=== PATIENT | male | born 1950 | race Caucasian/White ===

== ENCOUNTER 2016-03-24 13:05 | Inpatient (IN) | payer OTHER ==
[2016-03-24] MEDS ORDERED: cefTRIAXone(*) 2 GM in NS 0.9% 100 ML* 100 ML IVPB ONE (13:40)
[2016-03-24] MEDS ORDERED: NS 0.9% 1000 ML* 2,000 ML IV ONE (13:40)
--- NOTE | 2016-03-24 13:46 | ED ---
HPI Febrile Illness - HPI Summary HPI Summary: Patient presents for delayed evaluation of neck swelling and chills. Progressively worse over the last week and now so painful making it difficult to turn his neck. Denies headache, diplopia, recent antibiotics or antipyretics. No allev factors, recent hospitalisation. Came for evaluation. - History of Current Complaint Chief Complaint: EDGeneral Time Seen by Provider: 03/24/16 13:06 Hx Obtained From: Patient Onset/Duration: Started Days Ago Timing: Constant Pain Intensity: 0 - Allergy/Home Medications Allergies/Adverse Reactions: Allergies Allergy/AdvReac Type Severity Reaction Status Date / Time Carbamazepine Allergy Unknown Unknown Verified 01/21/16 15:14 Reaction Details Phenytoin [From Dilantin] Allergy Unknown Unknown Verified 01/21/16 15:14 Reaction Details Home Medications: Home Medications Acetaminophen TAB* [Tylenol TAB*] 650 mg PO Q4H PRN 03/24/16 [History Confirmed 03/24/16] Alendronate (NF) [Fosamax (NF)] 70 mg PO SA 03/24/16 [History Confirmed 03/24/16 ] Bisacodyl EC TAB* [Dulcolax EC TAB*] 5 mg PO DAILY PRN 03/24/16 [History Confirmed 03/24/16] Budesonide/Formote 160/4.5(NF) [Symbicort 160/4.5 (NF)] 2 puff INH BID PRN 03/24 [History Confirmed 03/24/16] Bupropion XL* [Wellbutrin XL *] 150 mg PO BID 03/24/16 [History Confirmed ] Cholecalciferol TAB* [Vitamin D TAB*] 3,000 units PO DAILY 03/24/16 [History Confirmed 03/24/16] CloZAPine TAB* 200 mg PO BEDTIME 03/24/16 [History Confirmed 03/24/16] ClomiPRAMINE (NF) [Clomipramine (NF)] 25 mg PO BEDTIME 03/24/16 [History Confirmed 03/24/16] Finasteride TAB* [Proscar TAB*] 5 mg PO DAILY 03/24/16 [History Confirmed ] Guaifenesin 400 mg PO Q6HR PRN 03/24/16 [History Confirmed 03/24/16] Haloperidol TAB* [Haldol TAB*] 5 mg PO BID PRN 03/24/16 [History Confirmed 03/24] Ipratropium [place] (Nasal) [Ipratropium [place]] 0.06 % SWISH SPIT TID PRN [History Confirmed 03/24/16] Meloxicam(NF) [Mobic(NF)] 7.5 mg PO DAILY 03/24/16 [History Confirmed 03/24/16] Nicotine GUM* 4 mg PO Q1HR PRN 03/24/16 [History Confirmed 03/24/16] Polyethylene Glycol 3350* [Miralax*] 17 gm PO DAILY PRN 03/24/16 [History Confirmed 03/24/16] Ranitidine TAB (NF) [Zantac TAB (NF)] 150 mg PO BID 03/24/16 [History Confirmed 03/24/16] Saline NASAL SPRAY 0.65%* [Sodium Chloride 0.65% Nasal [place]*] 2 spray BOTH NARES Q2HR PRN 03/24/16 [History Confirmed 03/24/16] Sennosides-Docusate Sodium [Senna-S 8.6-50 mg] 2 tab PO BID PRN 03/24/16 [ History Confirmed 03/24/16] Urea 20 % TOPICAL DAILY PRN 03/24/16 [History Confirmed 03/24/16] PMH/Surg Hx/FS Hx/Imm Hx Endocrine/Hematology History: Denies: Hx Diabetes Cardiovascular History: Reports: Hx Hypertension Denies: Hx Congestive Heart Failure Respiratory History: Denies: Other Respiratory Problems/Disorders GI History: Reports: Other GI Disorders - gastritis and hernia History: Denies: Hx Renal Disease Musculoskeletal History: Denies: Hx Back Problems - d/t fall on ice 2008 Neurological History: Reports: Hx Migraine, Hx Seizures, Other Neuro Impairments /Disorders - pt reports occasional blackout once/twice year Denies: Hx Transient Ischemic Attacks (TIA) Psychiatric History: Reports: Hx Anxiety, Hx Depression, Hx Post Traumatic Stress Disorder, Hx Schizophrenia, Hx Bipolar Disorder, Hx Suicide Attempt, Hx of Violent Episodes Against Others Denies: Hx Eating Disorder - Immunization History Date of Influenza Vaccine: 01/08/16 Infectious Disease History: Yes Infectious Disease History: Reports: Hx Hepatitis Denies: Hx Clostridium Difficile, Hx Human Immunodeficiency Virus (HIV), Hx of Known/Suspected MRSA, Hx Shingles, Hx Tuberculosis, Hx Known/Suspected VRE, Hx Known/Suspected VRSA, History Other Infectious Disease, Traveled Outside the [place] in Last 30 Days - Family History Known Family History: Negative: Cardiac Disease, Diabetes - Social History Alcohol Use: None Alcohol Amount: None now - Hx ETOH Abuse Substance Use Type: Reports: None Substance Use Comment - Amount & Last Used: Thorazine prescribed Hx Tobacco Use: Yes Smoking Status (MU): Heavy Every Day Tobacco Smoker Type: Cigarettes Length of Time of Smoking/Using Tobacco: 20 years Have You Smoked in the Last Year: Yes Review of Systems Positive: Fever, Chills Negative: Photophobia, Blurred Vision, Diplopia Cardiovascular: Negative Respiratory: Negative Positive: Nausea Genitourinary: Negative Negative: Arthralgia, Myalgia Positive: Rash Negative: Headache, Weakness, Paresthesia, Numbness, Syncope, Slurred Speech All Other Systems Reviewed And Are Negative: Yes Physical Exam Triage Information Reviewed: Yes Vital Signs On Initial Exam: Initial Vitals BP 159/79 03/24/16 13:12 Vital Signs Reviewed: Yes Appearance: Positive: Well-Nourished, Ill-Appearing, Pain Distress Skin: Positive: Warm, Skin Color Reflects Adequate Perfusion, Other - Entire dorsum of neck with eyrthema and induration, R sided ulceration, but no fluctuance. Head/Face: Positive: Normal Head/Face Inspection. Negative: TMJ Tenderness, Cephalohematoma Eyes: Positive: Normal, EOMI, SUYAPA ENT: Positive: Normal ENT inspection, Hearing grossly normal, Pharynx normal Neck: Positive: Supple, Enlarged Nodes @, Other: - Is able to passively and active ROM of neck. Respiratory/Lung Sounds: Positive: Clear to Auscultation, Breath Sounds Present Cardiovascular: Positive: Normal, RRR, Pulses are Symmetrical in both Upper and Lower Extremities Abdomen Description: Positive: Nontender, No Organomegaly, Soft Musculoskeletal: Positive: Normal, Strength/ROM Intact Neurological: Positive: Normal, Sensory/Motor Intact, Alert, Oriented to Person Place, Time, CN Intact II-III, Reflexes Intact, NV Bundle Intact Distally, Normal Gait - Recluse Coma Scale Coma Scale Total: 15 Diagnostics - Vital Signs Vital Signs Temp Pulse Resp BP Pulse Ox 03/24/16 13:14 99.2 F 99 20 159/79 93 03/24/16 13:12 159/79 - Laboratory Result Diagrams: 03/24/16 13:50 03/24/16 13:50 Lab Statement: Any lab studies that have been ordered have been reviewed, and results considered in the medical decision making process. Course/Dx - Febrile Illness Differential Diagnoses: Bacteremia, Cellulitis, Meningitis, Sepsis, Other: - Primary concern for severe sepsis with cellulitis. IVF and antibiotics. Low concern for meningoencephalitis, but ill apperaing. Probable admission for iv antibiotics. - Diagnoses Provider Diagnoses: Cellulitis of neck Discharge - Discharge Plan Condition: Stable Disposition: ADMITTED TO [facility]
[2016-03-24] MEDS ORDERED: Vancomycin(*) 1,500 MG in NS 0.9% 250 ML* 250 ML IVPB ONE ×2 (14:05→16:30)
[2016-03-24 14:15] LABS: Hematocrit 51 % (42-52); Hemoglobin 16.6 g/dl (14.0-18.0); Mean Corpuscular HGB Conc 33 g/dl (31-36); Mean Corpuscular Hemoglobin 29 pg (27-31); Mean Corpuscular Volume 89 fL (80-94); Mean Platelet Volume 9 um3 (7.4-10.4); Red Blood Count 5.66 10^6/ul (4.0-5.4); Red Cell Distribution Width 14 % (10.5-15); White Blood Count 14.8 10^3/ul (3.5-10.8)
[2016-03-24] MEDS ORDERED: NS 0.9% 250 ML* 250 ML ONE (14:18)
[2016-03-24 14:26] LABS: BUN/Creatinine Ratio 23.5 (8-20); Calcium 9.2 mg/dL (8.6-10.3); EGFR African American 94.3 (>60); EGFR Non-African American 73.3 (>60)
[2016-03-24 14:30] LABS: Potassium 4.3 mmol/L (3.5-5.0)
[2016-03-24] MEDS ORDERED: Iohexol 300* (CONTRAST) 10 ML SDV IV ONE (14:36)
--- NOTE | 2016-03-24 15:23 | RAD ---
HISTORY: Altered. No other history is provided COMPARISONS: None TECHNIQUE: Multiple contiguous axial CT scans were obtained of the head without intravenous contrast. FINDINGS: HEMORRHAGE/INFARCT: There is no hemorrhage or acute infarct. MASSES/SHIFT: There is no mass or shift. EXTRA-AXIAL SPACES: There are no extra-axial fluid collections. SULCI AND VENTRICLES: The sulci and ventricles are normal in size and position for the patient's stated age. CEREBRUM: There are no focal parenchymal abnormalities. BRAINSTEM: There are no focal parenchymal abnormalities. CEREBELLUM: There are no focal parenchymal abnormalities. VESSELS: The vessels are grossly normal. PARANASAL SINUSES: The paranasal sinuses are clear. ORBITS: The orbits are unremarkable. BONES AND SOFT TISSUE: No bone or soft tissue abnormalities are noted. OTHER: None IMPRESSION: NO ACUTE INTRACRANIAL PATHOLOGY.
[2016-03-24] MEDS ORDERED: NS 0.9% 1000 ML* 1,000 ML IV ONE (15:35)
[2016-03-24] MEDS ORDERED: Ondansetron INJ* 2 MG/ML VIAL IV PRN (15:35)
[2016-03-24] MEDS ORDERED: Haloperidol TAB* 5 MG PO PRN (15:39)
[2016-03-24] MEDS ORDERED: Albuterol HFA INHALER* 8 gm MDI INH PRN (15:39)
[2016-03-24] MEDS ORDERED: Nicotine GUM* 2 MG PO PRN (15:39)
[2016-03-24] MEDS ORDERED: clonazePAM TAB(*) 0.5 MG PO PRN (15:39)
[2016-03-24] MEDS ORDERED: NS 0.9% 1000 ML* 1,000 ML IV SCH (15:45)
[2016-03-24] MEDS ORDERED: LORazepam TAB(*) 1 MG PO SCH (16:00)
--- NOTE | 2016-03-24 16:23 | RAD ---
INDICATION: Fever. Sore throat. COMPARISON: None TECHNIQUE: Axial source images were acquired following the intravenous administration of 50 mL Omnipaque 300 Coronal and sagittal reconstructed images were acquired. FINDINGS: Brain and skull base: There are no CT abnormalities of the visualized brain or skull base. The mastoid air cells are well aerated. Salivary glands: No major salivary gland abnormality. Limited evaluation due to motion artifact, however.. Paranasal sinuses: The paranasal sinuses are clear. Nasopharynx: The nasopharynx and nasal cavity appear normal. Oropharynx: Very Limited examination due to motion artifact. Larynx: There are no laryngeal abnormalities. Thyroid: The thyroid appears normal. Lymph nodes: There is no lymphadenopathy by size criteria. Trachea/esophagus: There are no abnormalities of the trachea or visualized esophagus. The visualized lung apices are clear.. Vessels:The vessels appear normal. Bones and soft tissues:The remaining soft tissue elements of the neck are normal. There are no acute bony findings. There is mild spondylitic change of the cervical spine. Other: There is subcutaneous edema in the posterior soft tissues of the neck with mild skin induration. IMPRESSION: MILDLY LIMITED EXAMINATION DUE TO MOTION ARTIFACT AT THE LEVEL OF THE OROPHARYNX. MILD SUBCUTANEOUS EDEMA POSTERIOR SOFT TISSUES OF THE NECK. NO ADDITIONAL SIGNIFICANT CT FINDINGS.
[2016-03-24] MEDS ORDERED: Acetaminophen SUPP* 650 MG SUPP ONE (16:43)
[2016-03-24] MEDS: Acetaminophen TAB* 325 MG PO PRN ×2 (16:50→23:42)
--- NOTE | 2016-03-24 17:23 | RAD ---
INDICATION: Palpable lump posterior neck COMPARISON: CT neck to 2016 TECHNIQUE: Linear array scans of the posterior neck at the palpable area of concern performed. FINDINGS: There is no evidence of a mass. The CT likewise showed no evidence of a mass. There is mild skin induration IMPRESSION:NO EVIDENCE OF DISCRETE MASS/ABSCESS. EDEMATOUS CHANGE POSTERIOR NECK.
[2016-03-24] MEDS: oxyCODONE/Acetamin 5/325 MG* TAB PO PRN (19:30)
[2016-03-24] MEDS ORDERED: Calcium Carbonate CHEW TAB* 500 MG (TUMS) PO PRN (19:36)
[2016-03-24] MEDS: CloZAPine TAB* 100 MG TAB PO SCH (20:35)
[2016-03-24] MEDS: BuPROPion XL* 150 MG TAB.XL PO SCH (20:35)
[2016-03-24] MEDS: Famotidine TAB* 20 MG PO SCH (20:36)
[2016-03-24] MEDS: levETIRAcetam TAB* 500 MG PO SCH (20:37)
[2016-03-24] MEDS: CMC:ClomiPRAMINE (NF) 25 MG CAP PO SCH (20:40)
[2016-03-24] MEDS: Heparin VIAL(*) 5000 UNITS/ML VIAL (FIVE THOUSAND) SUBCUT SCH (21:32)
[2016-03-24] MEDS ORDERED: Polyethylene Glycol 3350* 17 GM PACKET PO ONE (23:00)
[2016-03-25] MEDS: Vancomycin(*) 1,000 MG in NS 0.9% 250 ML* 250 ML IVPB SCH ×3 (00:30→17:30)
--- NOTE | 2016-03-25 03:26 | HP ---
HISTORY AND PHYSICAL: DATE OF ADMISSION: 03/24/16 PRIMARY CARE PROVIDER: DANAE Epstein ATTENDING PHYSICIAN WHILE IN THE HOSPITAL: Dr. Tobi Scherer *(report dictated by Yovani Vela NP). CHIEF COMPLAINT: 1. Neck pain. 2. Neck redness and swelling. HISTORY OF PRESENT ILLNESS: Mr. Coombs is a 65-year-old male patient. He is a poor historian. He has a history of bipolar disorder, schizophrenia. His history again is poor, but he essentially comes in today because of neck pain. When initially asking the patient when this neck pain started, he said 4 years ago when he fell and slipped on some ice. However, on further discussing with him, it was revealed that about 3 or 4 days ago, he was getting his haircut by his traylor. He was using the clippers on the back side of his neck and he felt a sharp, stabbing pinch. He jumped up off the chair and he states that he thinks he may have become nicked. The patient says that to his knowledge he did not notice any redness over the last few days, but he noticed today that when he woke up that he had significant amount of pain and swelling. It hurts to move his neck, hurts to extend or flex the neck. So, he decided to come in to the ER. There have been no fevers or chills. He says that one of the workers where he lives at the [facility] noted his neck and felt that it should be evaluated at the hospital because it looked like he may have had an abscess. He was sent to the hospital. He denied having any other symptoms of vomiting or diarrhea. He denied having any chest pain or shortness of breath. There was concern when he came in to the hospital because it was noted that he appeared to be having rigors. He had an elevated white count and he had a significant amount of induration, erythema, pain, and swelling to his neck. So, the hospitalist service was asked to evaluate for admission. PAST MEDICAL HISTORY: Significant for: 1. Seizures. 2. BPH. 3. EtOH abuse. 4. Schizophrenia. 5. Bipolar disorder. 6. COPD. 7. Hypertension. PAST SURGICAL HISTORY: He denied any surgical history to me. MEDICATIONS: Home meds according to the [facility]'s list include: 1. Ipratropium bromide 0.6% swish, spit t.i.d. as needed. 2. Saline nasal spray, 2 sprays both nares every 2 hours as needed. 3. MiraLAX 17 g p.o. daily as needed. 4. Guaifenesin 400 mg daily p.o. every 6 hours as needed. 5. Urea 20% topically daily as needed. 6. Haldol 5 mg p.o. b.i.d. as needed. 7. Nicotine 4 mg p.o. every hour as needed for cravings. 8. Dulcolax 5 mg p.o. daily as needed. 9. ProAir 2 puffs inhaled four times a day as needed. 10. Tylenol 650 mg p.o. every 4 hours as needed. 11. Mobic 7.5 mg p.o. daily. 12. Clomipramine 25 mg p.o. bedtime. 13. Zantac 150 mg p.o. b.i.d. 14. Proscar 5 mg daily. 15. Vitamin D 3000 units daily. 16. Klonopin 0.5 mg t.i.d. as needed. 17. Senna 2 tabs p.o. b.i.d. as needed. 18. Clozapine 200 mg at bedtime. 19. Symbicort 2 puffs inhaled b.i.d. as needed. 20. Clozaril 100 mg p.o. in the morning. 21. Wellbutrin 150 mg p.o. b.i.d. 22. Keppra 750 mg p.o. b.i.d. 23. Zoloft 200 mg daily. 24. Plavix 75 mg daily. 25. Fosamax 70 mg p.o. Saturdays. 26. Sodium chloride 2 sprays both nares four times a day. ALLERGIES TO MEDICATIONS: Include TEGRETOL and DILANTIN. FAMILY HISTORY: The patient reports his mother was murdered. Otherwise, reviewed and noncontributory. SOCIAL HISTORY: The patient says he smokes about 17 cigars a day. He has been smoking for about 50 years. He says he has a distant history of alcohol abuse. He lives at [facility]. When asked if he wants a healthcare proxy appointed, he said his grandmother. Then, I asked him the grandmother most likely is not alive given his age, he said he agreed with me, saying most likely she is not and he does not want to appoint a healthcare proxy at this time. REVIEW OF SYSTEMS: There is no documented fever. He denied having any significant weight change. There was no double vision. He denies having any ear discharge. There is no rhinorrhea. No sore throat. No thyroid enlargement. Denies having any chest pain. There was no orthopnea. There was no nocturnal dyspnea. There was no abdominal pain. There was no nausea, no vomiting. There is no dysuria, no frequency. There is no loss of consciousness. No pruritus. There is skin ulceration per my HPI. Review of 14 systems completed, all others negative. PHYSICAL EXAMINATION GENERAL: At this time, Mr. Coombs is a 65-year-old male patient. He is chronically ill appearing. He is sitting in the ER stretcher. He does not appear to be in any acute distress. VITAL SIGNS: Reveal blood pressure 159/79, pulse of 98, respirations 20, O2 sat 93%, and temperature 99.2. HEENT: Head: Atraumatic and normocephalic. Eyes: EOMs intact. Sclerae are anicteric and not pale. Throat: Oral mucosa appeared to be dry. No oropharyngeal erythema. NECK: He had what appeared to be an abscess to me or a cyst like to the left side of his posterior neck that had induration wrapping around to his right ear behind the neck and over to his left ear posteriorly and there was no fluctuance when I did palpate the cyst structure at this point. He did have severe induration and erythema and pain on palpation. He had pain with flexion and extension. The neck was not stiff, but it definitely hurt to move. LUNGS: Clear to auscultation bilaterally. No wheezes, rales, or rhonchi. HEART: Sounds S1, S2. Regular rate and rhythm. No murmurs, rubs, or gallops. ABDOMEN: Soft, flat, and nontender. Bowel sounds present. EXTREMITIES: Pulses 2+ throughout. He is able to move all 4 extremities with 5 /5 strength. NEUROLOGIC: He is awake and he is alert. He knows he is at [facility] and he tells it. He knows the month. He knows his name. 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 Tongue is midline. He had no gross focal deficits. SKIN: Intact. DIAGNOSTIC STUDIES/LAB DATA: Today revealed a WBC of 14.8, RBC of 5.66, hemoglobin 16.6, hematocrit 51, platelet count of 152. Sodium 136, potassium 4.3, chloride of 101, bicarb 30, BUN 24, creatinine of 1.02, glucose 133, lactate 1.5, calcium 9.2. He had a brain CT obtained today which showed no acute intracranial pathology. Neck CT is pending, both structure and soft tissue. Old medical records were reviewed. ASSESSMENT AND PLAN: Mr. Coombs is a 65-year-old male patient coming in to the ER today with complaints of 3- to 4-day history of worsening neck pain and also having what appeared to be now a new possible abscess formation to his posterior neck. He will be admitted under inpatient status for: 1. Abscess formation: At this point, I did touch base with Dr. Mccollum, so this may need to be I and D'd. I did start him on vancomycin as strep and staph are the most likely culprits. He will get 2 L of fluid. In addition to this, we will go ahead. His lactic acid was sent, it was normal. Blood cultures were sent. I will continue with IV antibiotics for the time being and we will continue to follow him closely. If we are able to I and D, then we will send that off for collection as well. 2. Seizure disorder: Continue meds as prescribed. 3. Benign prostatic hypertrophy: Continue Proscar. 4. History of schizophrenia and bipolar: Continue with current medications. 5. Chronic obstructive pulmonary disease: I have ordered p.r.n. albuterol. 6. DVT prophylaxis: He is high risk. He will be placed on heparin subcu. 7. Code status: Full code. 8. Fluids, electrolytes, and nutrition: He can have a heart-healthy diet. TIME SPENT: On the admission was approximately 70 minutes; greater than half the time was spent [id number] with the patient obtaining my history and physical, other half the time spent going over the plan of care with the patient and implementing plan of care. I did discuss the plan of care with my attending, Dr. Scherer; he is in agreement. YOVANI VELA NP CC: DANAE Epstein, Oziel KWONG; Dr. Mccollum * [id number]/[facility] #: [id number] [facility] MEM[facility]IAL MEDICAL CENTERGerardo
[2016-03-25] MEDS: Acetaminophen TAB* 325 MG PO PRN ×2 (04:47→17:30)
[2016-03-25] MEDS: oxyCODONE/Acetamin 5/325 MG* TAB PO PRN ×3 (04:50→21:03)
[2016-03-25 05:56] LABS: Hematocrit 46 % (42-52); Hemoglobin 15.2 g/dl (14.0-18.0); Mean Corpuscular HGB Conc 33 g/dl (31-36); Mean Corpuscular Hemoglobin 30 pg (27-31); Mean Corpuscular Volume 90 fL (80-94); Mean Platelet Volume 9 um3 (7.4-10.4); Red Blood Count 5.14 10^6/ul (4.0-5.4); Red Cell Distribution Width 14 % (10.5-15); White Blood Count 16.6 10^3/ul (3.5-10.8)
[2016-03-25] MEDS: Heparin VIAL(*) 5000 UNITS/ML VIAL (FIVE THOUSAND) SUBCUT SCH ×3 (06:00→21:04)
[2016-03-25 06:11] LABS: BUN/Creatinine Ratio 23.3 (8-20); Calcium 8.3 mg/dL (8.6-10.3); EGFR African American 108.9 (>60); EGFR Non-African American 84.7 (>60); Potassium 3.6 mmol/L (3.5-5.0)
[2016-03-25] MEDS: BuPROPion XL* 150 MG TAB.XL PO SCH ×2 (08:43→20:58)
[2016-03-25] MEDS: Multivitamins/Minerals TAB PO SCH (08:43)
[2016-03-25] MEDS: Thiamine TAB* 100 MG TAB PO SCH (08:43)
[2016-03-25] MEDS: CloZAPine TAB* 100 MG TAB PO SCH ×2 (08:43→21:03)
[2016-03-25] MEDS: Sertraline* 100 MG TAB PO SCH (08:44)
[2016-03-25] MEDS: levETIRAcetam TAB* 500 MG PO SCH ×2 (08:44→21:01)
[2016-03-25] MEDS: Folic Acid TAB* 1 MG PO SCH (08:44)
[2016-03-25] MEDS: Clopidogrel TAB* 75 MG PO SCH (08:45)
[2016-03-25] MEDS: Finasteride TAB* 5 MG PO SCH (08:45)
[2016-03-25] MEDS: Famotidine TAB* 20 MG PO SCH ×2 (08:45→21:01)
[2016-03-25] MEDS: CMC:Meloxicam(NF) 7.5 MG TAB PO SCH (08:46)
--- NOTE | 2016-03-25 09:19 | PN ---
Subjective Date of Service: 03/25/16 Interval History: Interviewed and examined patient at bedside; Discussed case with Dr. Scherer / Yovani Vela ; Reviewed previous notes and radiology results; patient feels a bit better - but still significant nexk pain. U/S results reviewed with patient Family History: Unchanged from Admission Social History: Unchanged from Admission Past Medical History: Unchanged from Admission Objective Active Medications: . Acetaminophen (Tylenol Tab*) 650 mg PO Q4H PRN PRN Reason: FEVER/PAIN Last Admin: 03/25/16 04:47 Dose: 650 mg Albuterol (Ventolin Hfa Inhaler*) 2 puff INH QID PRN PRN Reason: SHORTNESS OF BREATH Bupropion HCl (Wellbutrin Xl *) 150 mg PO BID TAMMY PRN Reason: Protocol Last Admin: 03/25/16 08:43 Dose: 150 mg Calcium Carbonate (Tums*) 500 mg PO Q6H PRN PRN Reason: INDIGESTION Clomipramine HCl (Clomipramine (Nf)) 25 mg PO BEDTIME TAMMY PRN Reason: Protocol Last Admin: 03/24/16 20:40 Dose: Not Given Clonazepam (Klonopin Tab(*)) 0.5 mg PO TID PRN PRN Reason: ANXIETY Clopidogrel Bisulfate (Plavix Tab*) 75 mg PO DAILY [facility] Last Admin: 03/25/16 08:45 Dose: 75 mg Clozapine (Clozapine Tab*) 100 mg PO QAM [facility] Last Admin: 03/25/16 08:43 Dose: 100 mg Clozapine (Clozapine Tab*) 200 mg PO BEDTIME [facility] Last Admin: 03/24/16 20:35 Dose: 200 mg Famotidine (Pepcid Tab*) 20 mg PO BID TAMMY PRN Reason: Protocol Last Admin: 03/25/16 08:45 Dose: 20 mg Finasteride (Proscar Tab*) 5 mg PO DAILY [facility] Last Admin: 03/25/16 08:45 Dose: 5 mg Folic Acid (Folvite Tab*) 1 mg PO DAILY [facility] Last Admin: 03/25/16 08:44 Dose: 1 mg Haloperidol (Haldol Tab*) 5 mg PO BID PRN PRN Reason: AGITATION Heparin Sodium (Porcine) (Heparin Vial(*)) 5,000 units SUBCUT Q8HR [facility] Last Admin: 03/25/16 06:00 Dose: 5,000 units Lactated Ringer's (Lactated Ringers 1000 Ml Bag*) 2,000 mls @ 2,000 mls/hr IV .BOLUS [facility] Last Admin: 03/24/16 14:26 Dose: 2,000 mls/hr Sodium Chloride (Ns 0.9% 1000 Ml*) 1,000 mls @ 100 mls/hr IV PER RATE [facility] Vancomycin HCl 1,000 mg/ (Sodium Chloride) 250 mls @ 166.667 mls/hr IVPB Q8H [facility] Last Admin: 03/25/16 08:45 Dose: 166.667 mls/hr Levetiracetam (Keppra Tab*) 750 mg PO BID [facility] Last Admin: 03/25/16 08:44 Dose: 750 mg Lorazepam (Ativan Tab(*)) 0 mg PO .PER WAM SCORE [facility] PRN Reason: Protocol Meloxicam (Mobic(Nf)) 7.5 mg PO DAILY [facility] Last Admin: 03/25/16 08:46 Dose: Not Given Multivitamins/Minerals (Theragran/Minerals Tab*) 1 tab PO DAILY [facility] Last Admin: 03/25/16 08:43 Dose: 1 tab Nicotine Polacrilex (Nicotine Gum*) 4 mg PO Q1HR PRN PRN Reason: CRAVINGS Ondansetron HCl (Zofran Inj*) 4 mg IV Q6H PRN PRN Reason: NAUSEA Oxycodone/Acetaminophen (Percocet 5/325 Tab*) 1 tab PO Q4H PRN PRN Reason: PAIN Last Admin: 03/25/16 08:44 Dose: 1 tab Pharmacy Profile Note (Vancomycin Trough Check) 1 note FOLLOW UP 1600 ONE Stop: 03/25/16 16:01 Sertraline HCl (Zoloft*) 200 mg PO 0800 [facility] Last Admin: 03/25/16 08:44 Dose: 200 mg Thiamine HCl (Vitamin B-1 Tab*) 100 mg PO DAILY [facility] Last Admin: 03/25/16 08:43 Dose: 100 mg . Vital Signs 03/24/16 03/24/16 03/24/16 16:53 17:34 17:47 Temperature 105.6 F Pulse Rate 103 101 Respiratory 16 Rate Blood Pressure 134/62 132/67 (mmHg) O2 Sat by Pulse 90 92 89 Oximetry 03/24/16 03/24/16 03/24/16 17:50 19:00 19:30 Temperature 101.0 F Pulse Rate 101 Respiratory 18 18 18 Rate Blood Pressure 132/67 (mmHg) O2 Sat by Pulse 89 Oximetry Oxygen Devices in Use Now: None Appearance: elderly - appears stated age. posterior neck dressed - pustule with surrounding erythema noted Eyes: No Scleral Icterus Ears/Nose/Mouth/Throat: Clear Oropharnyx Neck: Trachea Midline Respiratory: Symmetrical Chest Expansion and Respiratory Effort Cardiovascular: NL Sounds; No Murmurs; No JVD Abdominal: NL Sounds; No Tenderness; No Distention Lymphatic: No Cervical Adenopathy Extremities: No Edema Skin: No Rash or Ulcers Neurological: Alert and Oriented x 3 Lines/Tubes/Other Access: Clean, Dry and Intact Peripheral IV Nutrition: Taking PO's Result Diagrams: 03/25/16 05:27 03/25/16 05:27 Microbiology and Other Data: Microbiology 03/24/16 16:55 Nasal Screen MRSA (PCR)(GAIL) - Final Nasal Mrsa Negative Assess/Plan/Problems-Billing . Assessment: 65 yo man with multiple comorbidities now with posterior neck cellulitis and associated pain and swelling. Admitted for IV antibiotics to control this high risk infection that seemed to progress quickly Surgical consult placed, though no discrete fluid collection. . - Patient Problems (1) Cutaneous abscess of neck Current Visit: Yes Status: Acute Priority: High Code(s): L02.11 - CUTANEOUS ABSCESS OF NECK Comment: - With surrounding cellulitis... - Likely staph sbscess (step the other possibility) - on vancomycin - Bcx pending - surgical consult to consider I&D; Ultrasound does not show discrete abscess - IV antibiotics appropriate - pain control with opitates, as required (2) Sepsis Current Visit: No Status: Acute Priority: High Comment: - secondary to neck abscess and surrounding cellulitis - high fever / leukocytosis ==> clearly from abscess/cellultis (3) Schizophrenia Current Visit: No Status: Chronic Priority: High Code(s): F20.9 - SCHIZOPHRENIA, UNSPECIFIED SNOMED Code(s): 68836132 Comment: - important comorbidity - seems controlled - continue outpatient med regimen (4) Hypertension Current Visit: No Status: Chronic Priority: High Code(s): I10 - ESSENTIAL (PRIMARY) HYPERTENSION (5) Hepatitis C Current Visit: No Status: Chronic Priority: Medium Comment: - diagnosis noted - not active problem now (6) DVT prophylaxis Current Visit: No Status: Acute Priority: Medium Code(s): BRP2795 - (7) Full code status Current Visit: No Status: Acute Priority: Medium Code(s): Z78.9 - OTHER SPECIFIED HEALTH STATUS
--- NOTE | 2016-03-25 12:44 | PN ---
Progress Note - Progress Note Note: Brief Surgery Note: (consult dictated) Asked to see this 65 yo male w/ posterior neck infection. Hx and imaging reviewed. Currently on IV vanco. Pt states the pain medication is helping, but overall feels about the same. PE: erythema, tenderness, induration over a 10 x 15 cm area of the posterior neck; area of crusty drainage on Right side: unroofed bluntly w/ ~ 3 cc of pus expressed. C&S submitted. Rec: warm packs, triple abx ointment topically. Does not appear to need a formal I&D. Will recheck 03/26.
[2016-03-25] MEDS ORDERED: metroNIDAZOLE IV 500 MG/100ML* 500 MG/100 ML BAG IVPB SCH (16:00)
[2016-03-25] MEDS ORDERED: Vancomycin Trough Check NOTE FOLLOW UP ONE (16:00)
[2016-03-25] MEDS ORDERED: Cefepime(*) 2 GM in NS 0.9% 50 ML* 50 ML IVPB SCH (16:00)
--- NOTE | 2016-03-25 20:25 | CONS ---
SURGICAL CONSULT NOTE: DATE OF CONSULT: 03/25/16 ATTENDING SURGEON: Dr. Francois Mccollum. CHIEF COMPLAINT: Pain and swelling, posterior neck. HISTORY OF PRESENT ILLNESS: This is a 65-year-old male, who apparently was getting his haircut 3 to 4 days ago and felt a sharp stabbing pinch and thought that maybe his skin had been nicked. Over the succeeding couple of days, he noted increased pain and swelling, it hurt to move his neck. There is no fever or chills or drainage from the area. He presented to the emergency department. Please refer to the admission history and physical for his remaining significant medical history. He did undergo initial imaging with CT, which did not show any collection or lesion. Likewise, an ultrasound was performed, which did not show any mass or significant collection. PHYSICAL EXAM: He has been febrile up to 101 though also had a temperature recorded apparently in the ED of 105.6, his temperature this morning is 98.4. His other vital signs are stable. His blood pressure this morning being 95/42. Physical exam was limited to the posterior neck, which reveals erythema, induration, and tenderness extending across the entire posterior neck over general area about of approximately 15 cm mediolaterally and 10 cm in craniocaudal direction. There is a small area of about 1.5 cm of crusted eschar to the right side. The eschar was bluntly debrided revealing a small opening from which there was a few cc of expressible of pus, this was submitted for culture. IMPRESSION: The patient will commence warm compresses to this area as well as topical triple-antibiotic ointment. He is currently receiving IV vancomycin pending blood cultures and the currently submitted wound culture. We will check on him tomorrow, but at this point, it does not appear that a formal I and D is required. DANAE PALACIOS CC: Darlin Lenz-DANAE Lamar, Oziel KWONG * [id number]/[facility] #: [id number] MTDD
[2016-03-25] MEDS: CMC:ClomiPRAMINE (NF) 25 MG CAP PO SCH (21:06)
[2016-03-25] MEDS ORDERED: Vancomycin per Pharmacy* NOTE FOLLOW UP PRN (22:08)
[2016-03-25] MEDS ORDERED: Vancomycin(*) 1,250 MG in NS 0.9% 250 ML* 250 ML IVPB SCH (22:10)
[2016-03-26] MEDS: Vancomycin(*) 1,250 MG in NS 0.9% 250 ML* 250 ML IVPB SCH ×3 (00:32→16:45)
[2016-03-26] MEDS: Heparin VIAL(*) 5000 UNITS/ML VIAL (FIVE THOUSAND) SUBCUT SCH ×2 (05:04→13:53)
[2016-03-26] MEDS: Acetaminophen TAB* 325 MG PO PRN (05:04)
[2016-03-26] MEDS: levETIRAcetam TAB* 500 MG PO SCH (08:45)
[2016-03-26] MEDS: Sertraline* 100 MG TAB PO SCH (08:45)
[2016-03-26] MEDS: BuPROPion XL* 150 MG TAB.XL PO SCH (08:46)
[2016-03-26] MEDS: Multivitamins/Minerals TAB PO SCH (08:46)
[2016-03-26] MEDS: Thiamine TAB* 100 MG TAB PO SCH (08:46)
[2016-03-26] MEDS: Folic Acid TAB* 1 MG PO SCH (08:47)
[2016-03-26] MEDS: CloZAPine TAB* 100 MG TAB PO SCH (08:47)
[2016-03-26] MEDS: Clopidogrel TAB* 75 MG PO SCH (08:47)
[2016-03-26] MEDS: Finasteride TAB* 5 MG PO SCH (08:48)
[2016-03-26] MEDS: Famotidine TAB* 20 MG PO SCH (08:48)
[2016-03-26] MEDS: CMC:Meloxicam(NF) 7.5 MG TAB PO SCH (08:49)
[2016-03-26] MEDS ORDERED: Polyethylene Glycol 3350* 17 GM PACKET PO SCH (09:00)
[2016-03-26 09:56] LABS: Hematocrit 44 % (42-52); Hemoglobin 14.6 g/dl (14.0-18.0); Mean Corpuscular HGB Conc 33 g/dl (31-36); Mean Corpuscular Hemoglobin 29 pg (27-31); Mean Corpuscular Volume 90 fL (80-94); Mean Platelet Volume 9 um3 (7.4-10.4); Red Blood Count 4.95 10^6/ul (4.0-5.4); Red Cell Distribution Width 13 % (10.5-15); White Blood Count 14.9 10^3/ul (3.5-10.8)
[2016-03-26 10:07] LABS: BUN/Creatinine Ratio 17.9 (8-20); Calcium 8.7 mg/dL (8.6-10.3); EGFR African American 117.9 (>60); EGFR Non-African American 91.7 (>60); Potassium 3.8 mmol/L (3.5-5.0)
[2016-03-26] MEDS ORDERED: Clindamycin 600 MG IVPREMIX(* 600 MG/50 ML SDV IV SCH (11:00)
[2016-03-26 11:15] VITALS: BP 114/54
--- NOTE | 2016-03-26 11:35 | RAD ---
HISTORY: Evaluate posterior neck fluid collection COMPARISONS: March 24, 2016 TECHNIQUE: Multiple transverse and longitudinal ultrasound images were obtained of the area of swelling of the posterior neck using grayscale and color Doppler imaging FINDINGS: There is subcutaneous edema on the right occipital area, without discrete loculated fluid collection to suggest abscess IMPRESSION: SOFT TISSUE EDEMA WITHOUT DISCRETE LOCULATED FLUID COLLECTION TO SUGGEST ABSCESS
[2016-03-26] MEDS: oxyCODONE/Acetamin 5/325 MG* TAB PO PRN (13:53)
[2016-03-26] MEDS ORDERED: Sulfamethox/Trimethoprim DS 800/160* TAB PO ONE (14:37)
--- NOTE | 2016-03-26 16:06 | PN ---
Hospitalist Progress Note . HOSPITALIST DISCHARGE NOTE: See dc instructions and summary by me. Patient stable for dc dc instructions reviewed with the patient at the bedside. DC patient home today.
--- NOTE | 2016-03-26 20:20 | CONS ---
CONSULTATION REPORT: DATE OF CONSULT: 03/26/16 REQUESTING PHYSICIAN: Dr Hines. CONSULTING SERVICE: Infectious Disease. REASON FOR CONSULT: Posterior neck infection. IMPRESSION: 1. Right of center posterior neck infection with cellulitis and purulent drainage and no clear collection on CT and ultrasound at this point though it may organize into a drainable abscess. He has rising white blood cell count persistent fever despite 2 to 3 days of IV antibiotics. He feels the areas of tenderness and induration as spreading slowly towards the left ear. There is no evidence for necrotizing and soft tissue infection. 2. Elevated hemoglobin A1C, question undiagnosed type 2 diabetes. 3. Fever. Suspect due to underlying persistence of infection. The differential thus include a drug fever due to vancomycin though I think at this point it is too early to stop vancomycin until we have susceptibility data for this isolate. RECOMMENDATION: 1. Continue vancomycin goal trough 10 to 15. We will add clindamycin 600 mg every 8 hours for possible decrease in toxin production and maybe more rapidly active against certain MRSA strains. He has an ultrasound pending today to evaluate for further area of a forming fluid collection. 2. Add an HIV antibody, which he has given verbal consent for. HISTORY OF PRESENT ILLNESS: This is a 65-year-old man with seizure disorder admitted with right neck pain and swelling. There is a recent history of while at the [employer] shop getting a haircut. And then 3 or 4 days ago, started to get a small bump in that area and then rapidly progressed to multiple larger bumps with pain, fever, and tenderness. He came to the ER on the . CT showed soft tissue swelling in that area, but no abscess. White count was 14, 000 on the and then yesterday was up to 16,000. He was started on vancomycin on admission, seen by Dr. Mccollum and eschar was unroofed and a small amount of purulent fluid was expressed and sent for culture. Gram stain showed gram-positive cocci. The PCR is positive for Staph aureus and MRSA. The wound culture is pending and blood cultures are negative. He has not had infections like this in the past. He feels like today the area of swelling and stiffness extends to the left ear and he had a fever of 40 degree celsius this morning. He is not aware of any antibiotic allergies. PAST MEDICAL HISTORY: 1. Hepatitis C. 2. Seizure disorder. 3. Bipolar disorder. 4. Schizophrenia. 5. Alcohol abuse. 6. Benign prostatic hypertrophy. 7. COPD. 8. Hypertension. MEDICATIONS: 1. Tylenol. 2. Albuterol. 3. Bupropion. 4. Plavix. 5. Famotidine. 6. Finasteride. 7. Folic acid. 8. Haldol. 9. Heparin subcutaneous injection. 10. Meloxicam. 11. Nicotine gum. 12. Zofran p.r.n. 13. Sertraline. 14. Thiamine. 15. Vancomycin 1250 mg every 8 hours. 16. Klonopin. 17. Keppra. ALLERGIES: CARBAMAZEPINE and PHENYTOIN FAMILY HISTORY: No recurrent infections or tuberculosis. SOCIAL HISTORY: Lives at [facility] in [place]. He has no sick contacts he is aware of. REVIEW OF SYSTEMS: All negative except as noted above. PHYSICAL EXAM: Vital Signs: Temperature is 37, heart rate 80, respiratory rate 20, blood pressure 130/60, and O2 sat 93% on room air. General: He is not in distress. He is not diaphoretic. Neurological: He is awake and oriented x3. Follows all commands. Moves all extremities. HEENT: There is no conjunctival hemorrhage. Oropharynx is without lesions. Neck is supple. The posterior neck, there is diffuse induration without fluctuance. There is no crepitus. There mild warmth that extends from the left ear to the right of midline posterior neck and there is a 5 mm opening with scant purulent material , cannot express anymore. Musculoskeletal: There is no spine tenderness to palpation or joint synovitis. He can flex and extend his neck and rotate his neck as well. Heart is regular rate and rhythm without murmurs, rubs, or gallops. Lungs are clear to auscultation bilaterally. Lymph Nodes: There is no cervical, supraclavicular, inguinal, axillary, or epitrochlear lymphadenopathy. Abdomen is soft, nontender, and nondistended. There is bowel sounds present. Skin: There is no rash or splinter hemorrhages. DIAGNOSTIC STUDIES/LAB DATA: White blood cell count yesterday was 16 and platelets are 138. Creatinine 0.9. Hemoglobin A1C 6.3. Please see impressions and recommendations as outlined above. Thanks for asking me see Mr. Coombs in consultation. [id number]/[facility] #: [id number] LUBNA
--- NOTE | 2016-03-26 22:38 | PN ---
Progress Note - Progress Note Note: Surgery progress (delayed entry; patient seen ~ 1530 today, 03/26/16) S: still c/o sig pain posterior neck, extending to L side O: Tmax 102.5 this a.m. Posterior neck: erythema, induration, tenderness throughout. Patient also brings to my attention a separate area to the Left side which he feels is also coming to a head: there is an area of increased induration and tenderness, but no fluctuance. On the right is the open wound from which is expressible cloudy exudate. Bandage replaced. C&S from 03/25: + for MRSA by PCR (sensitivities pend). Repeat US showed no organized fluid collection A: MRSA posterior neck, draining (at this point there is no indication for further drainage procedure) P: cont abx per hosp (appears that patient is to be discharged on Bactrim and Clindamycin; it was not clear what his followup plan was to be: [facility] vs[facility]). I discussed with him the rec for continued warm compresses and abx ointment dsg. F/u w/ our office prn.
[2016-03-27] MEDS ORDERED: Vancomycin Trough Check NOTE FOLLOW UP ONE (00:30)
--- NOTE | 2016-03-27 07:33 | DS ---
DISCHARGE SUMMARY: DATE OF ADMISSION: 03/24/16 DATE OF DISCHARGE: 03/26/16 STATUS DURING HOSPITALIZATION: Inpatient. PRIMARY CARE PHYSICIAN: DANAE Epstein. PRINCIPAL DISCHARGE DIAGNOSIS: Neck pain and swelling secondary to posterior neck MRSA abscess and surrounding cellulitis. SECONDARY DIAGNOSES: 1. Seizure disorder. 2. Benign prostatic hyperplasia. 3. History of alcohol abuse - not currently. 4. Schizophrenia. 5. Bipolar disorder. 6. Chronic obstructive pulmonary disease. 7. Hypertension. OUTPATIENT MEDICATIONS/DISCHARGE MEDICATIONS: New: 1. Bactrim double strength 1 tab twice daily for 7 days, then stop. 2. Clindamycin 300 mg by mouth 3 times daily for 7 days, then stop. Continue: 1. Ipratropium bromide 0.6%, swish and spit, 3 times daily as needed. 2. Saline nasal spray 2 sprays both nares every 2 hours as needed. 3. MiraLAX 17 g by mouth daily as needed. 4. Guaifenesin 400 mg by mouth every 6 hours as needed. 5. Urea 20% topically daily as needed. 6. Haldol 10 mg by mouth twice daily as needed. 7. Nicotine 4 mg by mouth every hour for cravings. 8. Dulcolax 5 mg by mouth daily as needed. 9. ProAir 2 puffs inhaled 4 times daily as needed. 10. Tylenol 650 mg by mouth every 4 hours as needed. 11. Mobic 7.5 mg by mouth daily. 12. Clomipramine 25 mg by mouth at bedtime. 13. Zantac 150 mg by mouth twice daily. 14. Proscar 5 mg by mouth daily. 15. Vitamin D 3000 units by mouth daily. 16. Klonopin 0.5 mg by mouth 3 times daily as needed. 17. Senna 2 tabs by mouth twice daily as needed. 18. Clozapine 200 mg by mouth at bedtime and 100 mg by mouth in the morning. 19. Symbicort 2 puffs inhaled twice daily as needed. 20. Wellbutrin 150 mg by mouth twice daily. 21. Keppra 750 mg by mouth twice daily. 22. Zoloft 200 mg by mouth daily. 23. Plavix 75 mg by mouth daily. 24. Fosamax 70 mg by mouth on Saturdays. 25. Sodium chloride 2 sprays both nares 4 times daily. HISTORY OF PRESENT ILLNESS AND HOSPITAL COURSE: Please see the H and P by nursing practitioner Yovani Vela, under the supervision of Dr. Tobi Scherer, on 03/24/16. In brief, Mr. Coombs is a 65-year-old male patient who is a very poor historian, with history of bipolar schizophrenia and seizures. The patient came in today because of neck pain. This problem started 4 days ago when he slipped and fell on the ice versus during the haircut when his traylor nicked his skin. The patient did not notice any problem initially, but then noticed significant amount of pain and swelling in the area. The neck hurt superficially with flexion and extension and the patient came to the emergency room. There was no fevers or chills, but he did have leukocytosis. The patient denied other systemic concerns, but was noted to be having rigors. The patient had significant induration, erythema, and pain and swelling to his neck , and it appeared he had an abscess. A soft tissue ultrasound did not show a discrete fluid collection to justify an I and D. The patient was started on IV vancomycin out of concern for MRSA and indeed a wound culture following unroofing of the lesion by the surgical team did grow MRSA. Sensitivities are pending at the time of this dictation. The patient's soft tissue ultrasound again initially showed no soft tissue fluid consolidation and again on the day of discharge, 03/26/16, the repeat ultrasound showed the same. The patient did have clindamycin added to his regimen for some bactericidal effect. The patient is now being discharged on oral Bactrim and clindamycin, as above, for a 7- day course. He is to follow up with physician research program assistant, Umberto, in the outpatient setting and this is being requested by the hospitalist administrative service. Mr. Coombs is very eager for discharge. I spoke to him about potentially staying until Tuesday, but he would prefer to go tonight. It is my understanding that he cannot get transportation home tomorrow (Tuesday) or Tuesday, and this is intolerable to him. The patient is clinically improving. He did have a fever earlier in the morning of 03/26/16, but then not again for the rest of the day, and he seems to be doing better, and given that clindamycin was added, I am optimistic that his antibiotic regimen is helping and again the repeat ultrasound did not show any fluid consolidation. The patient is very comfortable going home. He will be more comfortable there. If he has any worsen symptoms or signs including worsening erythema or pain at the back of his neck or high fevers or rigors, he should come back to the hospital and he said he will comply with that instruction. Similar instructions are being delivered directly to the [facility] staff. Total time taken to discharge Mr. Coombs was 50 minutes, greater than half that time spent going over the discharge instructions and the rationale for discharging his medication regimen, and the results of the ultrasound and CT scan that he had during the hospitalization. CONDITION ON DISCHARGE: Stable. [id number]/[facility] #: [id number] MTDD
== END 2016-03-26 17:20 | disposition home or self-care (01) | DRG 572 ==
LOC: ED 13:05 → MED 15:31
PROVIDERS: ADMIT Internal Medicine; ATTEND Internal Medicine
PROC: 0HB4XZZ Excision of Neck Skin, External Approach (ICD-10-PCS; principal; 2016-03-25)
DX: L03.221 Cellulitis of neck (principal); F20.9 Schizophrenia, unspecified; J44.9 Chronic obstructive pulmonary disease, unspecified; B95.62 Methicillin resistant Staphylococcus aureus infection as the cause of diseases classified elsewhere; G40.909 Epilepsy, unspecified, not intractable, without status epilepticus; N40.0 Benign prostatic hyperplasia without lower urinary tract symptoms; F31.9 Bipolar disorder, unspecified; I10 Essential (primary) hypertension; F10.10 Alcohol abuse, uncomplicated; Z79.1 Long term (current) use of non-steroidal anti-inflammatories (NSAID); Z79.899 Other long term (current) drug therapy; Z88.8 Allergy status to other drugs, medicaments and biological substances; F17.290 Nicotine dependence, other tobacco product, uncomplicated
CPT/HCPCS: 36415; 70450; 70491; 76536; 80048; 80202; 83036; 83605; 85025; 85610; 86703; 87040; 87070; 87077; 87186; 87205; 87640; 87641; 94660; 94760; 99406; A9270-GY; J0696; J1644; J3370; Q9967

== ENCOUNTER 2016-04-28 21:30 | Emergency (ER) | payer OTHER ==
[2016-04-28 22:22] LABS: Hematocrit 46 % (42-52); Mean Corpuscular HGB Conc 33 g/dl (31-36); Mean Corpuscular Hemoglobin 29 pg (27-31); Mean Corpuscular Volume 90 fL (80-94); Mean Platelet Volume 8 um3 (7.4-10.4); Red Cell Distribution Width 14 % (10.5-15); White Blood Count 7.8 10^3/ul (3.5-10.8)
[2016-04-28 22:32] LABS: Urine Bilirubin Negative (Negative); Urine Glucose Negative (Negative); Urine Nitrite Negative (Negative)
[2016-04-28 22:37] LABS: ALT 7 U/L (7-52); AST 14 U/L (13-39); Albumin 3.8 g/dL (3.2-5.2); Alkaline Phosphatase 120 U/L (34-104); Anion Gap 5 mmol/L (2-11); BUN/Creatinine Ratio 20.9 (8-20); Blood Urea Nitrogen 18 mg/dL (6-24); CO2 Carbon Dioxide 28 mmol/L (22-32); Calcium 9.3 mg/dL (8.6-10.3); Chloride 104 mmol/L (101-111); EGFR African American 114.8 (>60); EGFR Non-African American 89.2 (>60); Globulin 2.9 g/dL (2-4); Glucose 113 mg/dL (70-100); Sodium 137 mmol/L (133-145); Total Protein 6.7 g/dL (6.4-8.9)
[2016-04-28 22:49] LABS: Benzodiazepine Urine Screen None Detected (None Detect)
[2016-04-28 23:18] LABS: Acetaminophen < 15 mcg/mL; Alcohol < 10 mg/dL (<10); Salicylate < 2.50 mg/dL (<30)
--- NOTE | 2016-04-28 23:27 | ED ---
Josue Matthews Michael, scribed for Jim Chvaira MD on 04/28/16 at 2249 . Psychiatric Complaint - HPI Summary HPI Summary: 65 y/o male was BIBA to the ED presenting with SI that started today. The pt reports that he took is normal prescribed medication and that he did not try to commit suicide. He also c/o feeling lethargic on the medication. Nothing alleviates the pt's symptoms. The PMHx is significant for ETOH abuse and paranoid schizophrenia. - History Of Current Complaint Chief Complaint: EDMentalHealth Time Seen by Provider: 04/28/16 21:32 Hx Obtained From: Patient, Medical Records Onset/Duration: Sudden Onset, Lasting Hours, Still Present Timing: Intermittent Episode Lasting Severity Initially: Moderate Severity Currently: Moderate Character: Depressed, Lethargic Alleviating Factor(s): Nothing Associated Signs And Symptoms: Negative: Negative - SI Related History: Positive For: Prior Psychiatric Issues Has Suicidal: Reports: Thoughts - Allergies/Home Medications Allergies/Adverse Reactions: Allergies Allergy/AdvReac Type Severity Reaction Status Date / Time Carbamazepine Allergy Unknown Unknown Verified 01/21/16 15:14 Reaction Details Phenytoin [From Dilantin] Allergy Unknown Unknown Verified 01/21/16 15:14 Reaction Details PMH/Surg Hx/FS Hx/Imm Hx Endocrine/Hematology History: Denies: Hx Diabetes Cardiovascular History: Reports: Hx Hypertension Denies: Hx Congestive Heart Failure Respiratory History: Reports: Hx Chronic Bronchitis Denies: Other Respiratory Problems/Disorders GI History: Reports: Other GI Disorders - gastritis and hernia History: Reports: Other Problems/Disorders - gastric ulcer Denies: Hx Renal Disease Musculoskeletal History: Denies: Hx Back Problems - d/t fall on ice 2008 Sensory History: Reports: Hx Contacts or Glasses, Hx Vision Problem Opthamlomology History: Reports: Hx Contacts or Glasses, Hx Vision Problem Neurological History: Reports: Hx Migraine, Hx Seizures, Other Neuro Impairments /Disorders - pt reports occasional blackout once/twice year Denies: Hx Transient Ischemic Attacks (TIA) Psychiatric History: Reports: Hx Anxiety, Hx Depression, Hx Post Traumatic Stress Disorder, Hx Schizophrenia, Hx Bipolar Disorder, Hx Suicide Attempt, Hx of Violent Episodes Against Others, Hx Substance Abuse - ETOH Denies: Hx Eating Disorder - Immunization History Date of Influenza Vaccine: 01/08/16 Infectious Disease History: No Infectious Disease History: Reports: Hx Hepatitis Denies: Hx Clostridium Difficile, Hx Human Immunodeficiency Virus (HIV), Hx of Known/Suspected MRSA, Hx Shingles, Hx Tuberculosis, Hx Known/Suspected VRE, Hx Known/Suspected VRSA, History Other Infectious Disease, Traveled Outside the [place] in Last 30 Days - Family History Known Family History: Positive: Other - ETOH abuse Negative: Cardiac Disease, Diabetes - Social History Occupation: Disabled Lives: Alone Alcohol Use: None Alcohol Amount: None now - Hx ETOH Abuse Substance Use Type: Reports: None Substance Use Comment - Amount & Last Used: Thorazine prescribed Hx Tobacco Use: Yes Smoking Status (MU): Heavy Every Day Tobacco Smoker Type: Cigarettes Length of Time of Smoking/Using Tobacco: 20 years Have You Smoked in the Last Year: Yes Review of Systems Negative: Fever Positive: Other - lethargic and SI All Other Systems Reviewed And Are Negative: Yes Physical Exam Triage Information Reviewed: Yes Vital Signs On Initial Exam: Initial Vitals Temp Pulse Resp BP Pulse Ox 98.3 F 68 13 153/86 97 04/28/16 22:19 04/28/16 22:19 04/28/16 22:19 04/28/16 22:19 04/28/16 22:19 Vital Signs Reviewed: Yes Appearance: Positive: Well-Appearing, No Pain Distress Skin: Positive: Warm Head/Face: Positive: Normal Head/Face Inspection Eyes: Positive: Normal ENT: Positive: Hearing grossly normal Neck: Positive: Supple Respiratory/Lung Sounds: Positive: Clear to Auscultation, Breath Sounds Present Cardiovascular: Positive: RRR Abdomen Description: Positive: Nontender, Soft Bowel Sounds: Positive: Present Musculoskeletal: Positive: Strength/ROM Intact Neurological: Positive: Alert, Oriented to Person Place, Time Psychiatric: Positive: Affect/Mood Appropriate - [place] Coma Scale Coma Scale Total: 15 Diagnostics - Vital Signs Vital Signs Temp Pulse Resp BP Pulse Ox 04/28/16 22:39 98.5 F 68 13 153/86 97 04/28/16 22:37 98.5 F 68 13 153/86 97 04/28/16 22:19 98.3 F 68 13 153/86 97 - Laboratory Lab Results: Lab Results 04/28/16 04/28/16 04/28/16 Range/Units 22:15 22:15 22:20 WBC 7.8 (3.5-10.8) 10^3/ul RBC 5.10 (4.0-5.4) 10^6/ul Hgb 15.0 (14.0-18.0) g/dl Hct 46 (42-52) % MCV 90 (80-94) fL MCH 29 (27-31) pg MCHC 33 (31-36) g/dl RDW 14 (10.5-15) % Plt Count 167 (150-450) 10^3/ul MPV 8 (7.4-10.4) um3 Neut % (Auto) 72.1 (38-83) % Lymph % (Auto) 18.4 L (25-47) % [place] % (Auto) 8.8 (1-9) % Eos % (Auto) 0.1 (0-6) % Baso % (Auto) 0.6 (0-2) % Absolute Neuts (auto) 5.7 (1.5-7.7) 10^3/ul Absolute Lymphs (auto) 1.4 (1.0-4.8) 10^3/ul Absolute Monos (auto) 0.7 (0-0.8) 10^3/ul Absolute Eos (auto) 0 (0-0.6) 10^3/ul Absolute Basos (auto) 0 (0-0.2) 10^3/ul Absolute Nucleated RBC 0 10^3/ul Nucleated RBC % 0 Sodium 137 (133-145) mmol/L Potassium 4.0 (3.5-5.0) mmol/L Chloride 104 (101-111) mmol/L Carbon Dioxide 28 (22-32) mmol/L Anion Gap 5 (2-11) mmol/L BUN 18 (6-24) mg/dL Creatinine 0.86 (0.67-1.17) mg/dL Est GFR ( Amer) 114.8 (>60) Est GFR (Non-Af Amer) 89.2 (>60) BUN/Creatinine Ratio 20.9 H (8-20) Glucose 113 H (70-100) mg/dL Calcium 9.3 (8.6-10.3) mg/dL Total Bilirubin 0.40 (0.2-1.0) mg/dL AST 14 (13-39) U/L ALT 7 (7-52) U/L Alkaline Phosphatase 120 H (34-104) U/L Total Protein 6.7 (6.4-8.9) g/dL Albumin 3.8 (3.2-5.2) g/dL Globulin 2.9 (2-4) g/dL Albumin/Globulin Ratio 1.3 (1-3) TSH Pending Urine Color Yellow Urine Appearance Clear Urine pH 7.0 (5-9) Ur Specific [place] 1.008 L (1.010-1.030) Urine Protein Negative (Negative) Urine Ketones Negative (Negative) Urine Blood Negative (Negative) Urine Nitrate Negative (Negative) Urine Bilirubin Negative (Negative) Urine Urobilinogen Negative (Negative) Ur Leukocyte Esterase Negative (Negative) Urine Glucose Negative (Negative) Salicylates Pending Acetaminophen Pending Serum Alcohol Pending Result Diagrams: 04/28/16 22:15 04/28/16 22:15 Lab Statement: Any lab studies that have been ordered have been reviewed, and results considered in the medical decision making process. Course/Dx - Differential Dx/Clinical Impression Provider Diagnosis: Suicidal ideations Discharge - Discharge Plan Condition: Fair Disposition: HOME The documentation as recorded by the Josue rouse Michael accurately reflects the service I personally performed and the decisions made by Cait lewis David, MD.
[2016-04-28 23:28] LABS: TSH (Thyroid Stimulating Horm) 4.41 mcIU/mL (0.34-5.60)
[2016-04-29 09:41] VITALS: BP 119/74
--- NOTE | 2016-04-29 12:27 | ED ---
Patience Matthews Salem, scribed for Kaden Singh MD on 04/29/16 at 0928 . Progress - Progress Note Progress Note: Sign out from Dr. Chavira. Mental health evaluation completed. Pt is stable and ready to be discharged. - Consult/PCP Time Called: 04:06 Course/Dx - Diagnoses Provider Diagnoses: Depression Discharge - Discharge Plan Condition: Stable Disposition: HOME Patient Education Materials: Depression (ED), Suicide Prevention for Adults (ED ) Referrals: Darlin Shipman PA [Primary Care Provider] - Additional Instructions: Discharge Recommendations: At no time was Som suicidal. Per Som, he has not been suicidal for over 10 years and feels that his needs are being met at the [facility] where he resides. As a result, Som will be discharged back into the care of the [facility] staff. [facility] is willing to accept Som back to their care. [facility]: [facility]: [phone] is a 30/08 Crisis and Suicide Information and Referral line [facility] Suicide Prevention Hotline: or The documentation as recorded by the Patience rouse Salem accurately reflects the service I personally performed and the decisions made by , Kaden Singh MD.
== END 2016-04-29 09:40 | disposition home or self-care (01) ==
LOC: ED 21:30
DX: R45.851 Suicidal ideations (principal)
CPT/HCPCS: 36415; 80053; 80307; 80320; 80329; 81003; 84443; 85025; 99282; G0480

== ENCOUNTER 2016-05-10 14:28 | Emergency (ER) | payer OTHER ==
[2016-05-10 14:57] VITALS: BP 150/78
[2016-05-10] MEDS ORDERED: Ibuprofen TAB* 600 MG PO ONE (15:18)
--- NOTE | 2016-05-10 16:04 | RAD ---
INDICATION: Left lower extremity injury COMPARISON: None TECHNIQUE: AP, lateral, and oblique views were obtained. FINDINGS: The bony structures, joint spaces, and soft tissues are normal for age. IMPRESSION: NO ACUTE BONY FINDINGS
--- NOTE | 2016-05-13 14:45 | ED ---
Danny Matthews Benjamin, scribed for Orlando Renteria MD on 05/10/16 at 1522 . Lower Extremity - HPI Summary HPI Summary: 65yo male c/o left knee pain after a mechanical fall, landing on his left knee. The injury was around 2pm today. Pt states his left knee hurts to touch, to lift , and to rotate. Pt has a preexisting left knee pain from arthritis. - History of Current Complaint Chief Complaint: EDExtremityLower Stated Complaint: KNEE PAIN Time Seen by Provider: 05/10/16 15:09 Hx Obtained From: Patient Mechanism Of Injury: Fall From A Standing Position Onset of Pain: Immediate, Post Accident Onset/Duration: Hours Severity Initially: Mild Severity Currently: Mild Pain Intensity: 1 Timing: Constant Location: Is Discrete @ - left knee Associated Signs And Symptoms: Positive: Knee Pain Aggravating Factor(s): Standing, Movement Alleviating Factor(s): Nothing Able to Bear Weight: No - Allergies/Home Medications Allergies/Adverse Reactions: Allergies Allergy/AdvReac Type Severity Reaction Status Date / Time Carbamazepine Allergy Unknown Unknown Verified 01/21/16 15:14 Reaction Details Phenytoin [From Dilantin] Allergy Unknown Unknown Verified 01/21/16 15:14 Reaction Details PMH/Surg Hx/FS Hx/Imm Hx Endocrine/Hematology History: Denies: Hx Diabetes Cardiovascular History: Reports: Hx Hypertension Denies: Hx Congestive Heart Failure Respiratory History: Reports: Hx Chronic Bronchitis Denies: Other Respiratory Problems/Disorders GI History: Reports: Other GI Disorders - gastritis and hernia History: Reports: Other Problems/Disorders - gastric ulcer Denies: Hx Renal Disease Musculoskeletal History: Reports: Hx Arthritis - left knee Denies: Hx Back Problems - d/t fall on ice 2008 Sensory History: Reports: Hx Contacts or Glasses, Hx Vision Problem Opthamlomology History: Reports: Hx Contacts or Glasses, Hx Vision Problem Neurological History: Reports: Hx Migraine, Hx Seizures, Other Neuro Impairments /Disorders - pt reports occasional blackout once/twice year Denies: Hx Transient Ischemic Attacks (TIA) Psychiatric History: Reports: Hx Anxiety, Hx Depression, Hx Post Traumatic Stress Disorder, Hx Schizophrenia, Hx Bipolar Disorder, Hx Suicide Attempt, Hx of Violent Episodes Against Others, Hx Substance Abuse - ETOH Denies: Hx Eating Disorder - Immunization History Date of Influenza Vaccine: 01/08/16 Infectious Disease History: No Infectious Disease History: Reports: Hx Hepatitis Denies: Hx Clostridium Difficile, Hx Human Immunodeficiency Virus (HIV), Hx of Known/Suspected MRSA, Hx Shingles, Hx Tuberculosis, Hx Known/Suspected VRE, Hx Known/Suspected VRSA, History Other Infectious Disease, Traveled Outside the [place] in Last 30 Days - Family History Known Family History: Positive: Other - ETOH abuse Negative: Cardiac Disease, Diabetes - Social History Alcohol Use: None Alcohol Amount: None now - Hx ETOH Abuse Substance Use Type: Reports: None Substance Use Comment - Amount & Last Used: Thorazine prescribed Hx Tobacco Use: Yes Smoking Status (MU): Heavy Every Day Tobacco Smoker Type: Cigarettes Length of Time of Smoking/Using Tobacco: 20 years Have You Smoked in the Last Year: Yes Review of Systems Constitutional: Negative Eyes: Negative ENT: Negative Cardiovascular: Negative Respiratory: Negative Gastrointestinal: Negative Genitourinary: Negative Positive: Arthralgia - left knee Skin: Negative Neurological: Negative Psychological: Normal All Other Systems Reviewed And Are Negative: Yes Physical Exam Triage Information Reviewed: Yes Vital Signs On Initial Exam: Initial Vitals Temp Pulse Resp BP Pulse Ox 99.9 F 81 16 150/78 93 05/10/16 14:54 05/10/16 14:54 05/10/16 14:54 05/10/16 14:54 05/10/16 14:54 Vital Signs Reviewed: Yes Appearance: Positive: Well-Appearing, Well-Nourished, Pain Distress - mild Skin: Positive: Warm, Skin Color Reflects Adequate Perfusion, Dry Head/Face: Positive: Normal Head/Face Inspection Eyes: Positive: EOMI, SUYAPA ENT: Positive: Normal ENT inspection Neck: Positive: Supple, Nontender Respiratory/Lung Sounds: Positive: Clear to Auscultation, Breath Sounds Present Cardiovascular: Positive: RRR, Pulses are Symmetrical in both Upper and Lower Extremities Abdomen Description: Positive: Nontender, Soft Bowel Sounds: Positive: Present Musculoskeletal: Positive: Pain @ - Tenderness in left knee, when rotating in any direction Neurological: Positive: Sensory/Motor Intact, Alert, Oriented to Person Place, Time Psychiatric: Positive: Affect/Mood Appropriate Diagnostics - Vital Signs Vital Signs Temp Pulse Resp BP Pulse Ox 05/10/16 14:54 99.9 F 81 16 150/78 93 - Laboratory Lab Statement: Any lab studies that have been ordered have been reviewed, and results considered in the medical decision making process. - Radiology Left Knee XR Xray Interpretation: No Acute Changes Radiology Interpretation Completed By: Radiologist Lower Extremity Course/Dx - Course Course Of Treatment: X-ray of the left knee was negative here and he ambulated about the department without any distress. - Diagnoses Provider Diagnoses: Arthritis of left knee Discharge - Discharge Plan Condition: Stable Disposition: HOME Prescriptions: Ketorolac TAB (NF) [Toradol TAB (NF)] 10 mg PO Q6H #20 tab Patient Education Materials: Arthritis (ED) Referrals: Darlin Shipman PA [Primary Care Provider] - The documentation as recorded by the Danny rouse Benjamin accurately reflects the service I personally performed and the decisions made by , Orlando Renteria MD.
== END 2016-05-10 16:30 | disposition home or self-care (01) ==
LOC: ED 14:28
DX: M17.9 Osteoarthritis of knee, unspecified (principal); F17.210 Nicotine dependence, cigarettes, uncomplicated
CPT/HCPCS: 99282

== ENCOUNTER 2017-11-18 15:33 | Inpatient (IN) | payer OTHER ==
[2017-11-18] MEDS ORDERED: Azithromycin IV(*) 500 MG in NS 0.9% 250 ML* 250 ML IVPB ONE (15:48)
[2017-11-18] MEDS ORDERED: cefTRIAXone(*) 1 GM in NS 0.9% 50 ML* 50 ML IVPB ONE (15:48)
[2017-11-18] MEDS ORDERED: Acetaminophen TAB* 325 MG PO ONE (15:48)
[2017-11-18] MEDS: NS 0.9% 1000 ML*IV.FLUID IV ONE (15:58)
--- NOTE | 2017-11-18 15:58 | ED ---
Complex/Multi-Sys Presentation - HPI Summary HPI Summary: Patient is a 67 y/o M BIBA w/ c/o BUE shaking, fever, chills, and sweats onsetting around 1400 today. He resides at the [facility]. Provider in at 1547. Fever is measured to be 104 F temporally in room. In the room, he reports some nausea, ANAND. At the time, he denies dizziness/light-headedness. He notes SOB and a productive cough as well. Dysuria, vomiting, abdominal pain, chest pain and any other pain is denied. Patient notes that he took something for pain [employer] but is unsure of what he took. PSHx of left knee surgery. Patient is not diabetic. He is unsure of any FMHx. Patient requests medicine for anxiety in room. He reports hernia in stomach. EMS reports he was never hypotensive, BG was normal. On triage, nothing is noted to aggravate/alleviate Sx. Home medications and allergies are reviewed. In room, vitals are pulse 109, 95 o2, 138/79 BP. Allergies/Adverse Reactions: Allergies Allergy/AdvReac Type Severity Reaction Status Date / Time MS Carbamazepine Allergy Unknown Unknown Verified 01/21/16 15:14 [Carbamazepine] Reaction Details MS Phenytoin [From Dilantin] Allergy Unknown Unknown Verified 01/21/16 15:14 Reaction Details Home Medications: Home Medications Acetaminophen TAB* [Tylenol TAB*] 650 mg PO Q4H PRN 11/18/17 [History Confirmed 11/18/17] Capsaicin [Capzasin-Hp] 0.1 % TOPICAL BID 11/18/17 [History Confirmed 11/18/17] Finasteride TAB* [Proscar TAB*] 5 mg PO DAILY 11/18/17 [History Confirmed ] Fluoride (Sodium) [Prevident 5000 Dry Mouth] 1.1 % PO BID 11/18/17 [History Confirmed 11/18/17] Meloxicam(NF) [Mobic(NF)] 30 mg PO DAILY 11/18/17 [History Confirmed 11/18/17] Pantoprazole TAB (NF) [Protonix TAB (NF)] 40 mg PO DAILY 11/18/17 [History Confirmed 11/18/17] Polyethylene Glycol 3350* [Miralax*] 17 gm PO DAILY 11/18/17 [History Confirmed 11/18/17] Sennosides/Docusate Sodium [Docusate Sodium-Sennosides Tab] 2 tab PO BID [History Confirmed 11/18/17] Terbinafine [Lamisil Advanced] 1 % TOPICAL DAILY 11/18/17 [History Confirmed 01/24] Urea [Urea 20 Intensive Hydrati] 20 % TOPICAL DAILY PRN 11/18/17 [History Confirmed 11/18/17] buPROPion SR TAB* [Wellbutrin SR TAB*] 150 mg PO BID 11/18/17 [History Confirmed 11/18/17] - History Of Current Complaint Time Seen by Provider: 11/18/17 15:40 Hx Obtained From: Patient, EMS Onset/Duration: Sudden Onset, Lasting Hours - onset 1400 today, Still Present Timing: Constant Severity Currently: Moderate Severity Initially: Moderate Location: Negative Aggravating Factor(s): nothing Alleviating Factor(s): nothing Associated Signs And Symptoms: Positive: Headache, SOB, Cough, Nausea, Fever, Other - POSITIVE: BUE shaking, chills, sweats NEGATIVE: dysuria, abdominal pain. Negative: Dizziness - NEGATIVE: light-headedness, Chest Pain, Vomiting - Allergies/Home Medications Allergies/Adverse Reactions: Allergies Allergy/AdvReac Type Severity Reaction Status Date / Time carbamazepine Allergy Unknown Verified 11/18/17 21:06 Reaction Details phenytoin Allergy Unknown Verified 11/18/17 21:06 Reaction Details Home Medications: Home Medications Acetaminophen TAB* [Tylenol TAB*] 650 mg PO Q4H PRN 11/18/17 [History Confirmed 11/18/17] Capsaicin [Capzasin-Hp] 0.1 % TOPICAL BID 11/18/17 [History Confirmed 11/18/17] Finasteride TAB* [Proscar TAB*] 5 mg PO DAILY 11/18/17 [History Confirmed ] Fluoride (Sodium) [Prevident 5000 Dry Mouth] 1.1 % PO BID 11/18/17 [History Confirmed 11/18/17] Meloxicam(NF) [Mobic(NF)] 30 mg PO DAILY 11/18/17 [History Confirmed 11/18/17] Pantoprazole TAB (NF) [Protonix TAB (NF)] 40 mg PO DAILY 11/18/17 [History Confirmed 11/18/17] Polyethylene Glycol 3350* [Miralax*] 17 gm PO DAILY 11/18/17 [History Confirmed 11/18/17] Sennosides/Docusate Sodium [Docusate Sodium-Sennosides Tab] 2 tab PO BID [History Confirmed 11/18/17] Terbinafine [Lamisil Advanced] 1 % TOPICAL DAILY 11/18/17 [History Confirmed 01/24] Urea [Urea 20 Intensive Hydrati] 20 % TOPICAL DAILY PRN 11/18/17 [History Confirmed 11/18/17] buPROPion SR TAB* [Wellbutrin SR TAB*] 150 mg PO BID 11/18/17 [History Confirmed 11/18/17] PMH/Surg Hx/FS Hx/Imm Hx Previously Healthy: No Endocrine/Hematology History: Denies: Hx Diabetes Cardiovascular History: Reports: Hx Hypertension Denies: Hx Congestive Heart Failure Respiratory History: Reports: Hx Chronic Bronchitis Denies: Other Respiratory Problems/Disorders GI History: Reports: Hx Ulcer - gastric, Other GI Disorders - gastritis and hernia History: Denies: Hx Renal Disease Musculoskeletal History: Reports: Hx Arthritis - left knee Denies: Hx Back Problems Sensory History: Reports: Hx Contacts or Glasses, Hx Vision Problem Opthamlomology History: Reports: Hx Contacts or Glasses, Hx Vision Problem Neurological History: Reports: Hx Migraine, Hx Seizures, Other Neuro Impairments /Disorders - pt reports occasional blackout once/twice year Denies: Hx Transient Ischemic Attacks (TIA) Psychiatric History: Reports: Hx Anxiety, Hx Depression, Hx Post Traumatic Stress Disorder, Hx Schizophrenia, Hx Bipolar Disorder, Hx Suicide Attempt, Hx of Violent Episodes Against Others, Hx Substance Abuse - ETOH Denies: Hx Eating Disorder - Surgical History Surgery Procedure, Year, and Place: left knee surg - Immunization History Date of Tetanus Vaccine: 2011 Date of Influenza Vaccine: 01/08/16 Infectious Disease History: Yes Infectious Disease History: Reports: Hx Hepatitis Denies: Hx Clostridium Difficile, Hx Human Immunodeficiency Virus (HIV), Hx of Known/Suspected MRSA, Hx Shingles, Hx Tuberculosis, Hx Known/Suspected VRE, Hx Known/Suspected VRSA, History Other Infectious Disease, Traveled Outside the [place] in Last 30 Days - Family History Known Family History: Positive: Other - ETOH abuse Negative: Cardiac Disease, Diabetes - Social History Lives: [facility] [place] [facility] Alcohol Use: None Alcohol Amount: None now - Hx ETOH Abuse Substance Use Type: Reports: None - none now, 11/2017 Hx Tobacco Use: Yes Smoking Status (MU): Heavy Every Day Tobacco Smoker Type: Cigarettes Length of Time of Smoking/Using Tobacco: 20 years Have You Smoked in the Last Year: Yes Review of Systems Positive: Fever, Chills, Skin Diaphoresis, Other - BUE shaking Negative: Chest Pain Positive: Shortness Of Breath, Cough - productive Positive: Nausea. Negative: Abdominal Pain, Vomiting Negative: dysuria Skin: Negative Neurological: Other - NEGATIVE: dizziness/light-headedness Positive: Headache Positive: Anxious All Other Systems Reviewed And Are Negative: Yes Physical Exam - Summary Physical Exam Summary: Appearance: Ill-appearing, no pain distress, well-nourished Skin: Warm, color reflects adequate perfusion, dry Head: Normal Head/Face inspection, atraumatic Eyes: Conjunctiva clear ENT: Normal inspection Neck: Supple, no nodes, no JVD Respiratory: Diminished breath sounds throughout Cardio: RRR, No murmur, pulses normal, brisk capillary refill Abdomen: Soft, nontender, no masses, ventral hernia, no guarding, no rebound Bowel sounds: Present Musculoskeletal: Strength Intact/ROM intact, no calf tenderness, no edema. Tremulous in BUE. Psychological: states he is anxious Neuro: Alert, muscle tone normal, no focal deficit, tremulous Triage Information Reviewed: Yes Vital Signs On Initial Exam: Initial Vitals Pulse Pulse Ox 111 95 11/18/17 15:40 11/18/17 15:40 Vital Signs Reviewed: Yes Diagnostics - Vital Signs Vital Signs Temp Pulse Resp BP Pulse Ox 11/18/17 15:45 109 26 138/79 96 11/18/17 15:43 104.0 F 107 20 138/79 96 11/18/17 15:40 111 95 - Laboratory Result Diagrams: 11/18/17 16:04 11/18/17 16:05 Lab Statement: Any lab studies that have been ordered have been reviewed, and results considered in the medical decision making process. - Radiology CXR Xray Interpretation: Positive (See Comments) Radiology Interpretation Completed By: Radiologist - CXR findings could be compatible with mild vascular congestion in the correct clinical setting. This report was reviewed by ed physician. - EKG 1602 Cardiac Rate: Tachycardia - rate of 109 bpm EKG Rhythm: Sinus Tachycardia ST Segment: Non-Specific Ectopy: None EKG Interpretation: nl AVIVCT, nl QTc, right axis 101, artifact due to tremors Re-Evaluation - Re-Evaluation First Eval Re-Evaluation Time: 17:16 Change: Unchanged Comment: Patient pulled out his IV. Is anxious, asks for ativan. Complex Multi-Symp Course/Dx Course Of Treatment: Patient is a 67 y/o M BIBA w/ c/o BUE shaking, fever, chills, and sweats onsetting around 1400 today. He resides at the [facility]. Provider in at [id number]. Fever is measured to be 104 F in room. In the room, he reports some nausea, ANAND. At the time, he denies dizziness/light-headedness. He notes SOB and a productive cough as well. Dysuria, vomiting, abdominal pain, chest pain and any other pain is denied. Patient notes that he took something for pain [employer] but is unsure of what he took. Patient is not diabetic. EMS reports he was never hypotensive, BG was normal. Physical exam showed diminished breath sounds throughout lungs, tremulous in BUE, no pain distress. No calf tenderness, no edema. During ED course, sepsis protocol was initiated and patient was given IV fluids 30ml/kg, Ativan 1 mg PO, IV antibiotics for CAP (ceftriaxone and azithromycin), Tylenol 650 mg PO ED once. EKG Influenza A, B was negative. UA was negative. Labs showed BNP 22, CRP 17.03, procalcitonin 0.1 , lactic 1.4, alk phos 17.03, ALT 4, AST 12, trop 0, APTT 40, WBC 12.8. CXR impressions: CXR findings could be compatible with mild vascular congestion in the correct clinical setting. EKG showed sinus tachycardia with rate of 109 BPM , non-specific ST, no ectopy, nl AVIVCT, nl QTc, right axis 101, artifact due to tremors. Patients case was discussed at [address] Scherer, Dr. Scherer agrees to accept patient for admission. Dx of sepsis, fever. - Diagnoses Provider Diagnoses: Fever, Sepsis - Physician Notifications Discussed Care Of Patient With: Mao Scherer Time Discussed With Above Provider: 16:52 Instructed by Provider To: Other - Patients case was discussed at [address] Scherer, Dr. Scherer agrees to accept patient for admission. - Critical Care Time Critical Care Time: 30-74 min - 30 minutes Discharge - Sign-Out/Discharge Documenting (check all that apply): Patient Departure - admit All imaging exams completed and their final reports reviewed: Yes - Discharge Plan Condition: Fair Disposition: ADMITTED TO [facility] - Billing Disposition and Condition Condition: FAIR Disposition: Admitted to [facility] - Attestation Statements Document Initiated by Charoibe: Yes Documenting Scribe: Lenny Rabago Provider For Whom Chauncey is Documenting (Include Credential): Chika Cassidy MD Scribe Attestation: Lenny Matthesw , scribed for Chika Cassidy MD on 11/19/17 at 0011. Scribe Documentation Reviewed: Yes Provider Attestation: The documentation as recorded by the charoibLenny harper accurately reflects the service I personally performed and the decisions made by me, Chika Cassidy MD
[2017-11-18 16:21] LABS: ABS Basophils 0.1 10^3/ul (0-0.2); ABS Eosinophils 0 10^3/ul (0-0.6); ABS Lymphocytes 0.4 10^3/ul (1.0-4.8); ABS Monocytes 0.7 10^3/ul (0-0.8); ABS Neutrophils 11.6 10^3/ul (1.5-7.7); ABS Nucleated RBC 0 10^3/ul; Eosinophil % 0 % (0-6); Hematocrit 46 % (42-52); Hemoglobin 15.6 g/dl (14.0-18.0); Mean Corpuscular HGB Conc 34 g/dl (31-36); Mean Corpuscular Hemoglobin 30 pg (27-31); Mean Corpuscular Volume 88 fL (80-94); Mean Platelet Volume 8.6 um3 (7.4-10.4); Nucleated Red Blood Cells % 0.1; Platelet Count 145 10^3/ul (150-450); Red Blood Count 5.29 10^6/ul (4.00-5.40); Red Cell Distribution Width 15 % (10.5-15); White Blood Count 12.8 10^3/ul (3.5-10.8)
[2017-11-18 16:36] LABS: INR 0.99 (0.77-1.02)
[2017-11-18 16:41] LABS: EGFR Non-African American 77.2 (>60)
--- NOTE | 2017-11-18 16:55 | RAD ---
INDICATION: Fever and cough COMPARISON: Most recent comparison chest x-rays dated March 24, 2014 TECHNIQUE: Single AP portable view of the chest was obtained. FINDINGS: Image quality is compromised due to the relative inferiority of a portable chest x-ray. The heart and mediastinum exhibit normal size and contour. The pulmonary vasculature appears mildly engorged and indistinct relative to the previous chest x-ray. The right minor fissure is visible indicating a small amount of pleural fluid. Visualized bones are normal for the patient's age. IMPRESSION: Chest x-ray findings could be compatible with mild vascular congestion in the correct clinical setting.
[2017-11-18] MEDS ORDERED: LORazepam TAB(*) 1 MG PO ONE (18:52)
[2017-11-18] MEDS ORDERED: Trimethobenzamide CAP* 300 MG PO PRN (19:12)
[2017-11-18] MEDS ORDERED: Mouth Piece, Nicotine* 1 EACH CARTRIDGE INH PRN (19:12)
[2017-11-18] MEDS ORDERED: Benzonatate CAP* 100 MG PO PRN (19:12)
[2017-11-18] MEDS ORDERED: Nicotine Inhaler* 10 MG AMP INH PRN (19:12)
[2017-11-18] MEDS ORDERED: Benztropine TAB* 1 MG PO PRN (19:16)
[2017-11-18] MEDS ORDERED: Mometasone/Formoter 200/5 MDI INH PRN (19:16)
[2017-11-18] MEDS ORDERED: Bisacodyl EC TAB* 5 MG PO PRN (19:16)
[2017-11-18] MEDS ORDERED: traZODone TAB* 50 MG TAB PO PRN (19:17)
[2017-11-18] MEDS ORDERED: Saline NASAL SPRAY 0.65%* BTL BOTH NARES PRN (19:17)
[2017-11-18] MEDS ORDERED: Albuterol/Ipratropium NEB.SOL* Albuterol 2.5 MG/Ipratropium 0.5 MG 3 ML INH PRN (19:46)
[2017-11-18 19:52] LABS: Urine Appearance Clear; Urine Blood Negative (Negative); Urine Color Yellow; Urine Ketones Negative (Negative); Urine Protein Negative (Negative); Urine Urobilinogen Negative (Negative)
[2017-11-18] MEDS ORDERED: Senna/Docusate (NF) TAB PO SCH (21:00)
[2017-11-18] MEDS: Acetaminophen TAB* 325 MG PO PRN (21:46)
[2017-11-18] MEDS: Atorvastatin* 20 MG TAB PO SCH (21:46)
[2017-11-18] MEDS: clonazePAM TAB(*) 0.5 MG PO PRN (22:35)
[2017-11-18] MEDS: buPROPion SR TAB.SR* 150 MG PO SCH (22:35)
[2017-11-18] MEDS: Heparin VIAL(*) 5000 UNITS/ML VIAL (FIVE THOUSAND) SUBCUT SCH (22:36)
[2017-11-18] MEDS: levETIRAcetam TAB* 500 MG PO SCH (22:41)
[2017-11-18] MEDS: DOXYcycline IV* 100 MG in NS 0.9% 250 ML* 250 ML IVPB SCH (23:39)
[2017-11-18] MEDS: guaiFENesin ER TAB 600 MG PO SCH (23:41)
[2017-11-18] MEDS: fluPHENAZine HCL TAB* 5 MG PO SCH (23:41)
--- NOTE | 2017-11-19 00:16 | HP ---
AMENDED REPORT NOW INCLUDES COSIGNER DESIGNATION CC: "Dr. Lancaster." * ADMISSION HISTORY AND PHYSICAL: DATE OF ADMISSION: 11/18/17 PRIMARY CARE PROVIDER: "Dr. Lancaster." MY ATTENDING WHILE IN THE HOSPITAL: Dr. Yoel Fu* (dictated by DANAE Jett). CHIEF COMPLAINT: Fever, chills, shortness of breath, and cough. HISTORY OF PRESENT ILLNESS: Mr. Coombs is a 67-year-old male with a past medical history significant for seizure disorder, BPH, schizoaffective disorder bipolar type, COPD, and hypertension, who currently lives at [facility] due to his mental illness and was doing well until 2 days ago when he began to not feel well, developed worsening cough, developed shortness of breath with exertion. It is hard to elicit a timeline from the patient as he is a poor historian. The patient said this afternoon, he was hanging out with some friends, began to develop full body chills. The patient had his temperature taken and had a fever up to 104 and as such, was sent to the emergency department. The patient in the emergency department was found to have a slight leukocytosis, slightly elevated CRP, and a elevated platelet count with an elevated temperature up to 104, tachycardia, and an isolated hypotensive blood pressure. The patient continued to have rigors in the emergency department. The patient had a chest x-ray, which showed interstitial findings. The patient denied chest pain, shortness of breath, swelling in his legs, difficulty breathing while lying flat, long-term dyspnea on exertion. The patient has never had a heart attack to his knowledge. The patient has had no recent seizures. The patient has no difficulty swallowing. The patient does have a tremor at rest. The patient do not cough after he eats. The patient has had several sick contacts where he lives. He believes he had exposure to someone with the flu. Due to concern for pneumonia, we were asked to see him for admission to the hospital. PAST MEDICAL HISTORY: Seizure disorder, BPH, alcohol abuse, schizoaffective disorder bipolar type, COPD, hypertension. PAST SURGICAL HISTORY: Knee surgery, unknown type. MEDICATIONS: On admission based on the patient's medication reconciliation: 1. Keppra 750 mg p.o. b.i.d. 2. Sertraline 200 mg p.o. daily. 3. Clozapine 100 mg p.o. q.a.m., 200 mg p.o. at bedtime. 4. Nicotine gum 4 mg p.o. q. hour as needed. 5. Dulcolax 5 mg p.o. b.i.d. as needed. 6. Tylenol 650 mg p.o. q.4 hours as needed. 7. Zantac 150 mg p.o. b.i.d. 8. Vitamin D 3000 units p.o. daily. 9. Symbicort 2 puffs inhalation b.i.d. as needed. 10. Fosamax 70 mg p.o. every Tuesday. 11. Nitrofurantoin 100 mg p.o. at bedtime. 12. Lipitor 20 mg p.o. at bedtime. 13. Clonazepam 0.5 mg p.o. t.i.d. as needed. 14. Plavix 75 mg p.o. daily. 15. Saline 2 sprays both nares 4 times a day as needed. 16. Cogentin 1 mg p.o. q.6 hours as needed. 17. Prolixin 5 mg p.o. b.i.d. 18. Trazodone 50 mg p.o. at bedtime as needed. 19. MiraLAX 17 g p.o. daily. 20. Fluoride 1.1% p.o. b.i.d. 21. Lamisil 1 application topical daily. 22. Capsaicin 0.1% topical b.i.d. 23. Pantoprazole 40 mg p.o. daily. 24. Meloxicam 30 mg p.o. daily. 25. Finasteride 5 mg p.o. daily. 26. Senna S 2 tabs p.o. b.i.d. 27. Bupropion 150 mg p.o. b.i.d. 28. Urea 20% topical daily as needed. ALLERGIES: CARBAMAZEPINE, PHENYTOIN. FAMILY HISTORY: The patient's mother was murdered. The patient's father of unknown causes. The patient has a son, who has no health problems. The patient has several siblings whom he keeps in contact with. SOCIAL HISTORY: The patient smokes a pack a day. The patient used to abuse alcohol, the patient no longer does so. The patient denies illicit drug use. The patient lives at [facility]. The patient is not able to say what type of work he use to do. The patient is . The patient has one child. The patient's surrogate decision make is his brother, Troy Coombs. REVIEW OF SYSTEMS: A 14-point review of systems was reviewed and is negative except as above and this was limited due to the patient's providing poor history. PHYSICAL EXAMINATION GENERAL: The patient is a 67-year-old male, who appears stated age and sitting comfortably in bed, in no acute distress. VITAL SIGNS: At the time of evaluation, temperature 100.2, pulse rate 106, respiratory rate 93, blood pressure 106/72. HEENT: Head normocephalic, atraumatic. Sclerae anicteric. No conjunctival injection. Nasal mucosa moist. Oral mucosa moist. No pharyngeal erythema, discharge, or exudate. NECK: Supple, nontender. No lymphadenopathy. No carotid bruits auscultated. No JVD. RESPIRATORY: Diminished breath sounds throughout, rhonchi throughout the right lung with slight expiratory wheezes. CARDIAC: Tachycardic. No clicks, murmurs, gallops, or rubs. Pulses are 2+ in the bilateral dorsalis pedis, posterior tibial, and radial areas. Diminished heart sounds. ABDOMEN: Soft, nontender, nondistended. Bowel sounds present and normoactive in all 4 quadrants. No hepatosplenomegaly. No abdominal bruits auscultated. No hepatojugular reflux. GENITOURINARY: No suprapubic or CVA tenderness. NEURO: Cranial nerves II through XII intact. No focal deficits. Alert and oriented x3. PSYCHIATRIC: Euthymic, flat affect, somewhat childish. SKIN: Clean, dry, and intact. No rash. DIAGNOSTIC STUDIES/LAB DATA: White blood cell count 12.8, hemoglobin 15.6, hematocrit 46, platelet count 145. INR 0.99, APTT 40.0. Sodium 138, potassium 3.9, chloride 104, carbon dioxide 29, anion gap 5, BUN 19, creatinine 0.97, glucose 104, lactic acid 1.4. AST 12, ALT 4, alkaline phosphatase 132. Troponin I of 0.00, CRP 17.03, BNP 22. Protein 6.5, albumin 4.1, globulin 2.4. Procalcitonin 0.1. Studies: Chest x-ray read as, chest x-ray findings could be compatible with mild vascular congestion in a correct clinical setting. Electrocardiogram read as poor quality study, sinus tachycardia, normal axis. No interval ST segment abnormalities. Significant motion artifact, rate of 109 , QTc of 457. ASSESSMENT AND PLAN/IMPRESSION: Mr. Coombs is a 67-year-old male with a past medical history significant for seizure disorder, benign prostatic hypertrophy, schizoaffective disorder bipolar type, chronic obstructive pulmonary disease, who presents to the emergency department with 2 days of systemic symptoms including fevers, chills, cough, and shortness of breath. The patient has a lung exam and chest imaging consistent with community acquired pneumonia. The patient has been started on appropriate antibiotics and given a fluid bolus for his sepsis. The patient will be admitted to the hospital, monitored closely and will have continued antibiotics. 1. Community acquired pneumonia with sepsis. The patient has signs and symptoms consistent with community acquired pneumonia including chest x-ray with interstitial pattern, fever, tachycardia, cough, sputum production, chills. It is not obvious this is the patient's etiology. The patient is on nitrofurantoin chronically for an unknown reason. The patient has a urinalysis pending. The patient's antibiotics will cover most urinary pathogens if this is the case. The patient's nitrofurantoin has been stopped while in the hospital due to concern for lung toxicity, it is unknown how long he has been on this. The patient also had blood cultures drawn, which are pending. The patient is on ceftriaxone and doxycycline. The patient was given ceftriaxone and azithromycin while in the emergency department and adequate fluid bolus. The patient has no hypotension. The patient's fever is decreasing. The patient' s tachycardia is under control. The patient is saturating well on room air. The patient has a CURB-65 score of 1 due to his age of 67 indicating a low risk. The patient is not in need of ICU care at this time. The patient will have aggressive pulmonary toileting. The patient has slight wheezes and a history of chronic obstructive pulmonary disease; however, he has not had overtly inflammatory pneumonia and will not be treated with steroids at this time. The patient has a flu test pending, though flu is not prevalent. At this time, he states that he may have had contact with someone with the flu. After a flu test is obtained, the patient will be treated with Tamiflu as he is still within 3 days from his symptom onset. The patient had a procalcitonin drawn and we will have it repeat in the morning as well as a repeat chest x-ray. 2. Chronic obstructive pulmonary disease. The patient will be continued on home budesonide formoterol as well as DuoNeb inhalers as needed for wheezing. The patient does not appear to be in exacerbation at this time. No steroids are indicated. 3. Schizoaffective disorder, bipolar type. Continue clozapine, sertraline, fluphenazine, clonazepam, Wellbutrin, benztropine for the patient's very complex psychiatric history. The patient has many medications that prolong a QT , but this is normal on his exam. We will avoid QT prolong medications if possible. 4. Seizure disorder. Continue Keppra and the patient should have outpatient consideration for discontinuation of his bupropion given his seizure disorder. 5. Benign prostatic hypertrophy. Continue finasteride. The patient has a urinalysis pending. The patient has no suprapubic or CVA tenderness at this time. 6. Hypertension. The patient is normotensive at this time. The patient is not on any medications for his reported hypertension. 7. Hyperlipidemia. Continue statin. 8. DVT prophylaxis: The patient will have heparin subcu. 9. FEN: The patient will have a fluids at 100 mL an hour. The patient received a fluid bolus. The patient will have a heart-healthy diet without caffeine. 10. Code status: The patient would like to be a full code. The patient's surrogate decision maker will be his brother, Troy, as above. 11. Disposition: The patient is admitted inpatient. TIME SPENT: Approximately 75 minutes were spent on admission of this patient, 30 of which was spent [id number] with the patient obtaining history and physical and discussing treatment plan. The plan was discussed with my attending, Dr. Yoel Fu, and he is in agreement. DANAE JETT [id number]/CPS #: [id number] MTDD
[2017-11-19] MEDS: Famotidine TAB* 20 MG PO SCH ×3 (00:39→20:52)
[2017-11-19] MEDS: CloZAPine TAB* 100 MG TAB PO SCH ×3 (00:43→20:53)
[2017-11-19] MEDS ORDERED: Vancomycin(*) 1,250 MG in NS 0.9% 250 ML* 250 ML IVPB ONE (05:26)
[2017-11-19] MEDS: Heparin VIAL(*) 5000 UNITS/ML VIAL (FIVE THOUSAND) SUBCUT SCH ×3 (06:17→21:03)
[2017-11-19] MEDS: Polyethylene Glycol 3350* 17 GM PACKET PO SCH (09:36)
[2017-11-19] MEDS: Cholecalciferol TAB* 1000 UNITS PO SCH (09:36)
[2017-11-19] MEDS: Docusate CAP* 100 MG PO SCH ×2 (09:37→20:53)
[2017-11-19] MEDS: Sertraline* 100 MG TAB PO SCH (09:37)
[2017-11-19] MEDS: Senna TAB PO SCH ×2 (09:37→20:52)
[2017-11-19] MEDS: Finasteride TAB* 5 MG PO SCH (09:37)
[2017-11-19] MEDS: guaiFENesin ER TAB 600 MG PO SCH ×2 (09:37→20:53)
[2017-11-19] MEDS: CMC:Pantoprazole TAB (NF) 40 MG TAB PO SCH (09:37)
[2017-11-19] MEDS: Clopidogrel TAB* 75 MG PO SCH (09:37)
[2017-11-19] MEDS: levETIRAcetam TAB* 500 MG PO SCH ×2 (09:37→20:52)
[2017-11-19] MEDS: buPROPion SR TAB.SR* 150 MG PO SCH ×2 (09:37→20:53)
[2017-11-19] MEDS: fluPHENAZine HCL TAB* 5 MG PO SCH ×2 (09:37→20:52)
[2017-11-19] MEDS: DOXYcycline IV* 100 MG in NS 0.9% 250 ML* 250 ML IVPB SCH ×2 (10:47→21:51)
[2017-11-19] MEDS: Acetaminophen TAB* 325 MG PO PRN ×2 (13:16→21:56)
--- NOTE | 2017-11-19 14:59 | PN ---
Subjective Date of Service: 11/19/17 Interval History: HOSPITALIST PROGRESS NOTE Patient seen and examined at bedside. Care reviewed and d/w Marly Knight RN. He feels a little better, but still has significant cough and dyspnea. Family History: Unchanged from Admission Social History: Unchanged from Admission Past Medical History: Unchanged from Admission Objective Active Medications: Acetaminophen (Tylenol Tab*) 650 mg PO Q6H PRN PRN Reason: FEVER/PAIN Last Admin: 11/19/17 13:16 Dose: 650 mg Albuterol/Ipratropium (Duoneb (Albuterol 2.5 Mg/Ipratropium 0.5 Mg)) 1 neb INH Q6H PRN PRN Reason: SOB/WHEEZING Atorvastatin Calcium (Lipitor*) 20 mg PO BEDTIME [facility] Last Admin: 11/18/17 21:46 Dose: 20 mg Benzonatate (Tessalon Cap*) 100 mg PO BID PRN PRN Reason: COUGH Benztropine Mesylate (Cogentin Tab*) 1 mg PO Q6HR PRN PRN Reason: AGITATION Bisacodyl (Dulcolax Ec Tab*) 5 mg PO BID PRN PRN Reason: CONSTIPATION Bupropion HCl (Wellbutrin Sr Tab*) 150 mg PO BID [facility] Last Admin: 11/19/17 09:37 Dose: 150 mg Cholecalciferol (Vitamin D Tab*) 3,000 units PO DAILY [facility] Last Admin: 11/19/17 09:36 Dose: 3,000 units Clonazepam (Klonopin Tab(*)) 0.5 mg PO TID PRN PRN Reason: ANXIETY Last Admin: 11/18/17 22:35 Dose: 0.5 mg Clopidogrel Bisulfate (Plavix Tab*) 75 mg PO DAILY [facility] Last Admin: 11/19/17 09:37 Dose: 75 mg Clozapine (Clozapine Tab*) 100 mg PO QAM [facility] Last Admin: 11/19/17 09:36 Dose: 100 mg Clozapine (Clozapine Tab*) 200 mg PO BEDTIME [facility] Last Admin: 11/19/17 00:43 Dose: 200 mg Device (Nicotine Mouth Piece*) 1 each INH .USE WITH NICOTROL PRN PRN Reason: CRAVING Docusate Sodium (Colace Cap*) 100 mg PO BID [facility] Last Admin: 11/19/17 09:37 Dose: 100 mg Famotidine (Pepcid Tab*) 20 mg PO BID [facility]; Protocol Last Admin: 11/19/17 09:36 Dose: 20 mg Finasteride (Proscar Tab*) 5 mg PO DAILY [facility] Last Admin: 11/19/17 09:37 Dose: 5 mg Fluphenazine HCl (Prolixin Tab*) 5 mg PO BID [facility] Last Admin: 11/19/17 09:37 Dose: 5 mg Guaifenesin (Mucinex*) 1,200 mg PO BID [facility] Last Admin: 11/19/17 09:37 Dose: 1,200 mg Heparin Sodium (Porcine) (Heparin Vial(*)) 5,000 units SUBCUT Q8HR [facility] Last Admin: 11/19/17 13:16 Dose: 5,000 units Doxycycline Hyclate 100 mg/ (Sodium Chloride) 250 mls @ 250 mls/hr IVPB Q12H [facility] Last Admin: 11/19/17 10:47 Dose: 250 mls/hr Ceftriaxone Sodium 1 gm/ (Sodium Chloride) 50 mls @ 200 mls/hr IVPB Q24H [facility] Lactated Ringer's (Lactated Ringers 1000 Ml Bag*) 1,000 mls @ 100 mls/hr IV PER RATE [facility] Last Admin: 11/18/17 21:44 Dose: 100 mls/hr Levetiracetam (Keppra Tab*) 750 mg PO BID [facility] Last Admin: 11/19/17 09:37 Dose: 750 mg Mometasone Furoate/Formoterol Fumar (Dulera 200/5 Mdi*) 2 puff INH BID PRN; Protocol PRN Reason: SHORTNESS OF BREATH Nicotine (Nicotine Inhaler*) 10 mg INH Q2H PRN PRN Reason: CRAVING Pantoprazole Sodium (Protonix Tab (Nf)) 40 mg PO DAILY [facility] Last Admin: 11/19/17 09:37 Dose: 40 mg Polyethylene Glycol/Electrolytes (Miralax*) 17 gm PO DAILY [facility] Last Admin: 11/19/17 09:36 Dose: 17 gm Senna (Senokot Tab*) 2 tab PO BID [facility] Last Admin: 11/19/17 09:37 Dose: 2 tab Sertraline HCl (Zoloft*) 200 mg PO 0800 [facility] Last Admin: 11/19/17 09:37 Dose: 200 mg Sodium Chloride (Sodium Chloride 0.65% Nasal [place]*) 2 spray BOTH NARES QID PRN PRN Reason: CONGESTION Last Admin: 11/19/17 09:35 Dose: 2 spray Trazodone HCl (Desyrel Tab*) 50 mg PO BEDTIME PRN PRN Reason: SLEEP Trimethobenzamide HCl (Tigan Cap*) 300 mg PO Q6H PRN PRN Reason: NAUSEA Vital Signs - 8 hr 11/19/17 11/19/17 11/19/17 07:54 08:00 12:35 Temperature 98.4 F 99.3 F Pulse Rate 80 133 Respiratory 25 22 19 Rate Blood Pressure 114/56 159/96 (mmHg) O2 Sat by Pulse 95 96 Oximetry 11/19/17 11/19/17 13:08 13:54 Temperature 101.4 F Pulse Rate 93 134 Respiratory 22 Rate Blood Pressure 124/61 103/53 (mmHg) O2 Sat by Pulse 96 Oximetry Oxygen Devices in Use Now: None Appearance: Pleasant gentleman lying in bed in NAD. Eyes: No Scleral Icterus Ears/Nose/Mouth/Throat: Mucous Membranes Moist Neck: Trachea Midline Respiratory: Symmetrical Chest Expansion and Respiratory Effort, - - BS+ bilaterally, coarse, with rhonchi on right base Cardiovascular: RRR - Normal S1 and S2 Neurological: Alert and Oriented x 3, NL Muscle Strength and Tone Result Diagrams: 11/18/17 16:04 11/18/17 16:05 Assess/Plan/Problems-Billing Assessment: Mr Coombs is a 67yo M with PMH of seizure disorder, BPH, alcohol abuse, schizoaffective disorder bipolar type, COPD, HTN, who presented to ED with c/o dyspnea and cough, found to have pneumonia. - Patient Problems (1) Sepsis Comment: - Presentation compatbile with sepsis with fever, leukocytosis, tachycardia. - Source is pneumonia. (2) Pneumonia Comment: - CxR shows interstitial infiltrate suggestive of interstitial pneumonia. - Check Legionella, pneumococcal Ag. - Influenza is negative. - Continue Ceftriaxone and doxycycline. (3) COPD (chronic obstructive pulmonary disease) Comment: - COPD appears to be stable at this time. - Continue bronchodilators and inhaled steroids. (4) Schizoaffective disorder, bipolar type Comment: - Continue Benztropine, Clozapine, Bupropion, Clonazepam, Prolixin. (5) Seizure disorder Comment: - Continue Keppra. (6) BPH (benign prostatic hyperplasia) Comment: - Continue Finasteride. (7) HLD (hyperlipidemia) Comment: - Continue Atorvastatin. (8) DVT prophylaxis Comment: - SQ heparin. (9) Full code status Status and Disposition: Inpatient.
[2017-11-19] MEDS: cefTRIAXone(*) 1 GM in NS 0.9% 50 ML* 50 ML IVPB SCH (16:04)
[2017-11-19] MEDS: Atorvastatin* 20 MG TAB PO SCH (20:52)
[2017-11-20] MEDS ORDERED: Albuterol/Ipratropium NEB.SOL* Albuterol 2.5 MG/Ipratropium 0.5 MG 3 ML INH PRN (03:12)
[2017-11-20] MEDS: Acetaminophen TAB* 325 MG PO PRN (05:47)
[2017-11-20] MEDS: Heparin VIAL(*) 5000 UNITS/ML VIAL (FIVE THOUSAND) SUBCUT SCH ×3 (05:48→21:49)
[2017-11-20 06:46] LABS: ABS Basophils 0 10^3/ul (0-0.2); ABS Eosinophils 0 10^3/ul (0-0.6); ABS Lymphocytes 0.8 10^3/ul (1.0-4.8); ABS Monocytes 0.7 10^3/ul (0-0.8); ABS Neutrophils 7.7 10^3/ul (1.5-7.7); ABS Nucleated RBC 0 10^3/ul; Eosinophil % 0 % (0-6); Hematocrit 40 % (42-52); Hemoglobin 13.5 g/dl (14.0-18.0); Lymphocyte % 8.7 % (25-47); Mean Corpuscular HGB Conc 34 g/dl (31-36); Mean Corpuscular Hemoglobin 30 pg (27-31); Mean Corpuscular Volume 88 fL (80-94); Mean Platelet Volume 8.4 um3 (7.4-10.4); Nucleated Red Blood Cells % 0; Platelet Count 111 10^3/ul (150-450); Red Blood Count 4.55 10^6/ul (4.00-5.40); Red Cell Distribution Width 15 % (10.5-15); White Blood Count 9.2 10^3/ul (3.5-10.8)
[2017-11-20 07:04] LABS: EGFR Non-African American 97.8 (>60)
[2017-11-20] MEDS: fluPHENAZine HCL TAB* 5 MG PO SCH ×2 (09:05→19:34)
[2017-11-20] MEDS: CloZAPine TAB* 100 MG TAB PO SCH ×2 (09:05→19:34)
[2017-11-20] MEDS: Clopidogrel TAB* 75 MG PO SCH (09:05)
[2017-11-20] MEDS: Famotidine TAB* 20 MG PO SCH ×2 (09:05→19:36)
[2017-11-20] MEDS: buPROPion SR TAB.SR* 150 MG PO SCH ×2 (09:06→19:35)
[2017-11-20] MEDS: Polyethylene Glycol 3350* 17 GM PACKET PO SCH (09:06)
[2017-11-20] MEDS: Docusate CAP* 100 MG PO SCH ×2 (09:07→19:37)
[2017-11-20] MEDS: Senna TAB PO SCH ×2 (09:07→19:37)
[2017-11-20] MEDS: guaiFENesin ER TAB 600 MG PO SCH ×2 (09:07→19:35)
[2017-11-20] MEDS: levETIRAcetam TAB* 500 MG PO SCH ×2 (09:07→19:33)
[2017-11-20] MEDS: Finasteride TAB* 5 MG PO SCH (09:07)
[2017-11-20] MEDS: Sertraline* 100 MG TAB PO SCH (09:07)
[2017-11-20] MEDS: Cholecalciferol TAB* 1000 UNITS PO SCH (09:07)
[2017-11-20] MEDS: CMC:Pantoprazole TAB (NF) 40 MG TAB PO SCH (09:12)
[2017-11-20] MEDS: DOXYcycline IV* 100 MG in NS 0.9% 250 ML* 250 ML IVPB SCH ×2 (10:50→21:54)
--- NOTE | 2017-11-20 13:52 | PN ---
Subjective Date of Service: 11/20/17 Interval History: Mr. Coombs feels well this morning. He c/o pain and edema to his LLE. He reports numbness to the LLE which has been presents for "weeks." Would like to ambulate in the hallways. Nursing reports he has been slightly unsteady on his feet. No SOB or cough. Reportedly there was an episode last night when the patient was difficult to arouse. He does not remember this event. Denies CP, N/V/D. Family History: Unchanged from Admission Social History: Unchanged from Admission Past Medical History: Unchanged from Admission Objective Active Medications: Acetaminophen (Tylenol Tab*) 650 mg PO Q6H PRN Albuterol/Ipratropium (Duoneb (Albuterol 2.5 Mg/Ipratropium 0.5 Mg)) 1 neb INH Q6H PRN Albuterol/Ipratropium (Duoneb (Albuterol 2.5 Mg/Ipratropium 0.5 Mg)) 1 neb INH Q4H PRN Atorvastatin Calcium (Lipitor*) 20 mg PO BEDTIME [facility] Benzonatate (Tessalon Cap*) 100 mg PO BID PRN Benztropine Mesylate (Cogentin Tab*) 1 mg PO Q6HR PRN Bisacodyl (Dulcolax Ec Tab*) 5 mg PO BID PRN Bupropion HCl (Wellbutrin Sr Tab*) 150 mg PO BID [facility] Cholecalciferol (Vitamin D Tab*) 3,000 units PO DAILY [facility] Clonazepam (Klonopin Tab(*)) 0.5 mg PO TID PRN Clopidogrel Bisulfate (Plavix Tab*) 75 mg PO DAILY [facility] Clozapine (Clozapine Tab*) 100 mg PO QAM [facility] Clozapine (Clozapine Tab*) 200 mg PO BEDTIME [facility] Device (Nicotine Mouth Piece*) 1 each INH .USE WITH NICOTROL PRN Docusate Sodium (Colace Cap*) 100 mg PO BID [facility] Famotidine (Pepcid Tab*) 20 mg PO BID [facility]; Protocol Finasteride (Proscar Tab*) 5 mg PO DAILY [facility] Fluphenazine HCl (Prolixin Tab*) 5 mg PO BID [facility] Guaifenesin (Mucinex*) 1,200 mg PO BID [facility] Heparin Sodium (Porcine) (Heparin Vial(*)) 5,000 units SUBCUT Q8HR [facility] Doxycycline Hyclate 100 mg/ (Sodium Chloride) 250 mls @ 250 mls/hr IVPB Q12H [facility] Ceftriaxone Sodium 1 gm/ (Sodium Chloride) 50 mls @ 200 mls/hr IVPB Q24H [facility] Levetiracetam (Keppra Tab*) 750 mg PO BID [facility] Mometasone Furoate/Formoterol Fumar (Dulera 200/5 Mdi*) 2 puff INH BID PRN; Protocol Nicotine (Nicotine Inhaler*) 10 mg INH Q2H PRN Pantoprazole Sodium (Protonix Tab (Nf)) 40 mg PO DAILY [facility] Polyethylene Glycol/Electrolytes (Miralax*) 17 gm PO DAILY [facility] Senna (Senokot Tab*) 2 tab PO BID [facility] Sertraline HCl (Zoloft*) 200 mg PO 0800 [facility] Sodium Chloride (Sodium Chloride 0.65% Nasal [place]*) 2 spray BOTH NARES QID PRN Trazodone HCl (Desyrel Tab*) 50 mg PO BEDTIME PRN Trimethobenzamide HCl (Tigan Cap*) 300 mg PO Q6H PRN Vital Signs - 8 hr 11/20/17 11/20/17 11/20/17 07:11 08:00 11:25 Temperature 98.3 F 96.8 F Pulse Rate 78 74 Respiratory 19 19 18 Rate Blood Pressure 126/63 108/60 (mmHg) O2 Sat by Pulse 94 93 Oximetry Oxygen Devices in Use Now: None Appearance: Middle-aged male sitting in chair in no acute distress Eyes: No Scleral Icterus, PERRLA Ears/Nose/Mouth/Throat: NL Teeth, Lips, Gums, Mucous Membranes Moist Neck: NL Appearance and Movements; NL JVP, Trachea Midline Respiratory: Symmetrical Chest Expansion and Respiratory Effort, Clear to Auscultation Cardiovascular: NL Sounds; No Murmurs; No JVD, RRR Abdominal: NL Sounds; No Tenderness; No Distention, No Hepatosplenomegaly Extremities: No Clubbing, Cyanosis, - - Mild nonpitting edema to LLE Skin: No Rash or Ulcers Neurological: Alert and Oriented x 3, NL Muscle Strength and Tone, - - Decreased sensation to LLE Lines/Tubes/Other Access: Clean, Dry and Intact Peripheral IV Nutrition: Taking PO's Result Diagrams: 11/20/17 06:35 11/20/17 06:35 Assess/Plan/Problems-Billing Assessment: Mr. Coombs is a 67yo M with PMH of seizure disorder, BPH, alcohol abuse, schizoaffective disorder bipolar type, COPD, HTN, who presented to ED with c/o dyspnea and cough, found to have pneumonia, cellulitis, and positive blood cultures. - Patient Problems (1) Cellulitis of left lower leg Current Visit: Yes Status: Acute Priority: High Code(s): L03.116 - CELLULITIS OF LEFT LOWER LIMB SNOMED Code(s): 264156169 Comment: - Source of sepsis, blood cx + for strep pyogenes - Continue ceftriaxone (2) Bacteremia Current Visit: Yes Status: Acute Priority: High Code(s): R78.81 - BACTEREMIA SNOMED Code(s): 7098806 Comment: - Group A strep in blood - Appreciate ID consult (3) Pneumonia Current Visit: Yes Status: Acute Priority: High Code(s): J18.9 - PNEUMONIA , UNSPECIFIED ORGANISM SNOMED Code(s): 394073147 Comment: - CxR shows interstitial infiltrate suggestive of interstitial pneumonia - Influenza, legionella, strep pneumo negative - Likely viral, but will continue doxycycline for now (4) Sepsis Current Visit: Yes Status: Acute Priority: High Comment: - Resolved - Presentation compatbile with sepsis with fever, leukocytosis, tachycardia - Source is cellulitis, blodd cx + group A strep (5) Schizoaffective disorder, bipolar type Current Visit: Yes Status: Chronic Priority: Medium Code(s): F25.0 - SCHIZOAFFECTIVE DISORDER, BIPOLAR TYPE SNOMED Code(s): 64782780 Comment: - Continue Benztropine, Clozapine, Bupropion, Clonazepam, Prolixin (6) Seizure disorder Current Visit: Yes Status: Chronic Code(s): G40.909 - EPILEPSY, UNSP, NOT INTRACTABLE, WITHOUT STATUS EPILEPTICUS SNOMED Code(s): 657077684 Comment: - Continue Keppra (7) HLD (hyperlipidemia) Current Visit: Yes Status: Chronic Priority: Medium Code(s): E78.5 - HYPERLIPIDEMIA, UNSPECIFIED SNOMED Code(s): 54766674 Comment: - Continue Atorvastatin (8) BPH (benign prostatic hyperplasia) Current Visit: Yes Status: Chronic Priority: Medium Code(s): N40.0 - BENIGN PROSTATIC HYPERPLASIA WITHOUT LOWER URINRY TRACT SYMP SNOMED Code(s): 023946750 Comment: - Continue Finasteride (9) Full code status Current Visit: Yes Status: Acute Priority: High Code(s): Z78.9 - OTHER SPECIFIED HEALTH STATUS SNOMED Code(s): 100343907 (10) DVT prophylaxis Current Visit: Yes Status: Acute Priority: High Code(s): IFV1380 - SNOMED Code(s): 063346164 Comment: - SQ heparin Status and Disposition: Inpatient. Anticipate d/c home when medically stable.
--- NOTE | 2017-11-20 14:44 | RAD ---
Indication: Left leg edema. Duplex Doppler sonography of the deep venous system of the left lower extremity deep venous system was performed. Bilaterally the common femoral veins appear patent and compressible. Left proximal greater saphenous vein, proximal deep femoral vein, femoral vein, popliteal vein, posterior tibial veins appear patent and compressible.Peroneal veins are not visualized. IMPRESSION: NO EVIDENCE OF DEEP VENOUS THROMBOSIS IS IDENTIFIED. PERONEAL VEINS NOT VISUALIZED.
[2017-11-20] MEDS: cefTRIAXone(*) 1 GM in NS 0.9% 50 ML* 50 ML IVPB SCH (16:07)
[2017-11-20] MEDS: clonazePAM TAB(*) 0.5 MG PO PRN (19:33)
[2017-11-20] MEDS: Atorvastatin* 20 MG TAB PO SCH (19:35)
[2017-11-21] MEDS: Heparin VIAL(*) 5000 UNITS/ML VIAL (FIVE THOUSAND) SUBCUT SCH ×3 (05:35→21:12)
[2017-11-21 07:08] LABS: ABS Basophils 0 10^3/ul (0-0.2); ABS Eosinophils 0 10^3/ul (0-0.6); ABS Lymphocytes 0.8 10^3/ul (1.0-4.8); ABS Monocytes 0.7 10^3/ul (0-0.8); ABS Neutrophils 5.4 10^3/ul (1.5-7.7); ABS Nucleated RBC 0 10^3/ul; Eosinophil % 0 % (0-6); Hematocrit 41 % (42-52); Hemoglobin 13.6 g/dl (14.0-18.0); Lymphocyte % 11.7 % (25-47); Mean Corpuscular HGB Conc 34 g/dl (31-36); Mean Corpuscular Hemoglobin 30 pg (27-31); Mean Corpuscular Volume 88 fL (80-94); Mean Platelet Volume 8.6 um3 (7.4-10.4); Nucleated Red Blood Cells % 0.1; Platelet Count 126 10^3/ul (150-450); Red Blood Count 4.63 10^6/ul (4.00-5.40); Red Cell Distribution Width 15 % (10.5-15); White Blood Count 6.9 10^3/ul (3.5-10.8)
[2017-11-21] MEDS: guaiFENesin ER TAB 600 MG PO SCH ×2 (09:34→21:10)
[2017-11-21] MEDS: Finasteride TAB* 5 MG PO SCH (09:34)
[2017-11-21] MEDS: CMC:Pantoprazole TAB (NF) 40 MG TAB PO SCH (09:34)
[2017-11-21] MEDS: Docusate CAP* 100 MG PO SCH ×2 (09:34→21:11)
[2017-11-21] MEDS: CloZAPine TAB* 100 MG TAB PO SCH ×2 (09:34→21:11)
[2017-11-21] MEDS: Famotidine TAB* 20 MG PO SCH ×2 (09:34→21:08)
[2017-11-21] MEDS: Polyethylene Glycol 3350* 17 GM PACKET PO SCH (09:34)
[2017-11-21] MEDS: Senna TAB PO SCH ×2 (09:34→21:10)
[2017-11-21] MEDS: levETIRAcetam TAB* 500 MG PO SCH ×2 (09:35→21:11)
[2017-11-21] MEDS: Cholecalciferol TAB* 1000 UNITS PO SCH (09:35)
[2017-11-21] MEDS: buPROPion SR TAB.SR* 150 MG PO SCH ×2 (09:35→21:08)
[2017-11-21] MEDS: fluPHENAZine HCL TAB* 5 MG PO SCH ×2 (09:35→21:09)
[2017-11-21] MEDS: Clopidogrel TAB* 75 MG PO SCH (09:35)
[2017-11-21] MEDS: Sertraline* 100 MG TAB PO SCH (09:35)
[2017-11-21] MEDS: DOXYcycline IV* 100 MG in NS 0.9% 250 ML* 250 ML IVPB SCH (10:35)
--- NOTE | 2017-11-21 11:13 | PN ---
Subjective Date of Service: 11/21/17 Interval History: Mr. Coombs feels well this morning. He reports the pain and numbness to his LLE is improving. Per nursing, late yesterday the patient became agitated, stating he wanted to leave the hospital. Staff was able to convince the patient to stay overnight. This morning, the patient does not particularly remember that event, though he is anxious to leave. He does understand the importance of remaining in the hospital d/t his bacteremia. Nursing reports that his orientation seems to vary throughout the day, not always oriented to situation. He denies SOB, CP , N/V/D. Family History: Unchanged from Admission Social History: Unchanged from Admission Past Medical History: Unchanged from Admission Objective Active Medications: Acetaminophen (Tylenol Tab*) 650 mg PO Q6H PRN Albuterol/Ipratropium (Duoneb (Albuterol 2.5 Mg/Ipratropium 0.5 Mg)) 1 neb INH Q6H PRN Albuterol/Ipratropium (Duoneb (Albuterol 2.5 Mg/Ipratropium 0.5 Mg)) 1 neb INH Q4H PRN Atorvastatin Calcium (Lipitor*) 20 mg PO BEDTIME TAMMY Benzonatate (Tessalon Cap*) 100 mg PO BID PRN Benztropine Mesylate (Cogentin Tab*) 1 mg PO Q6HR PRN Bisacodyl (Dulcolax Ec Tab*) 5 mg PO BID PRN Bupropion HCl (Wellbutrin Sr Tab*) 150 mg PO BID TAMYM Cholecalciferol (Vitamin D Tab*) 3,000 units PO DAILY TAMMY Clonazepam (Klonopin Tab(*)) 0.5 mg PO TID PRN Clopidogrel Bisulfate (Plavix Tab*) 75 mg PO DAILY TAMMY Clozapine (Clozapine Tab*) 100 mg PO QAM TAMMY Clozapine (Clozapine Tab*) 200 mg PO BEDTIME TAMMY Device (Nicotine Mouth Piece*) 1 each INH .USE WITH NICOTROL PRN Docusate Sodium (Colace Cap*) 100 mg PO BID TAMMY Famotidine (Pepcid Tab*) 20 mg PO BID TAMMY; Protocol Finasteride (Proscar Tab*) 5 mg PO DAILY TAMMY Fluphenazine HCl (Prolixin Tab*) 5 mg PO BID TAMMY Guaifenesin (Mucinex*) 1,200 mg PO BID TAMMY Heparin Sodium (Porcine) (Heparin Vial(*)) 5,000 units SUBCUT Q8HR TAMMY Ceftriaxone Sodium 1 gm/ (Sodium Chloride) 50 mls @ 200 mls/hr IVPB Q24H TAMMY Levetiracetam (Keppra Tab*) 750 mg PO BID TAMMY Mometasone Furoate/Formoterol Fumar (Dulera 200/5 Mdi*) 2 puff INH BID PRN; Protocol Nicotine (Nicotine Inhaler*) 10 mg INH Q2H PRN Pantoprazole Sodium (Protonix Tab (Nf)) 40 mg PO DAILY TAMMY Polyethylene Glycol/Electrolytes (Miralax*) 17 gm PO DAILY TAMMY Senna (Senokot Tab*) 2 tab PO BID TAMMY Sertraline HCl (Zoloft*) 200 mg PO 0800 TAMMY Sodium Chloride (Sodium Chloride 0.65% Nasal Mcleod*) 2 spray BOTH NARES QID PRN Trazodone HCl (Desyrel Tab*) 50 mg PO BEDTIME PRN Trimethobenzamide HCl (Tigan Cap*) 300 mg PO Q6H PRN Vital Signs - 8 hr 11/21/17 11/21/17 03:37 07:43 Temperature 98.8 F 97.5 F Pulse Rate 80 86 Respiratory 17 19 Rate Blood Pressure 121/64 124/65 (mmHg) O2 Sat by Pulse 94 96 Oximetry Oxygen Devices in Use Now: None Appearance: Middle-aged male sitting in chair in NAD Eyes: No Scleral Icterus, PERRLA Ears/Nose/Mouth/Throat: NL Teeth, Lips, Gums, Mucous Membranes Moist Neck: NL Appearance and Movements; NL JVP, Trachea Midline Respiratory: Symmetrical Chest Expansion and Respiratory Effort, - - Rhonchi in bilat bases, otherwise clear Cardiovascular: NL Sounds; No Murmurs; No JVD, RRR, - - Mild nonpitting edema to LLE Abdominal: NL Sounds; No Tenderness; No Distention, No Hepatosplenomegaly Extremities: No Clubbing, Cyanosis Skin: - - Erythema from knee to foot Neurological: Alert and Oriented x 3 Lines/Tubes/Other Access: Clean, Dry and Intact Peripheral IV Nutrition: Taking PO's Result Diagrams: 11/21/17 06:45 11/20/17 06:35 Assess/Plan/Problems-Billing Assessment: Mr. Coombs is a 67yo M with PMH of seizure disorder, BPH, alcohol abuse, schizoaffective disorder bipolar type, COPD, HTN, who presented to ED with c/o dyspnea and cough, found to have pneumonia, cellulitis, and positive blood cultures. - Patient Problems (1) Cellulitis of left lower leg Current Visit: Yes Status: Acute Priority: High Code(s): L03.116 - CELLULITIS OF LEFT LOWER LIMB SNOMED Code(s): 971836545 Comment: - Source of sepsis, blood cx + for strep pyogenes - Continue ceftriaxone (2) Bacteremia Current Visit: Yes Status: Acute Priority: High Code(s): R78.81 - BACTEREMIA SNOMED Code(s): 0987343 Comment: - Group A strep - Appreciate ID consult (3) Pneumonia Current Visit: Yes Status: Acute Priority: High Code(s): J18.9 - PNEUMONIA , UNSPECIFIED ORGANISM SNOMED Code(s): 284682304 Comment: - CxR shows interstitial infiltrate suggestive of interstitial pneumonia - Likely viral as procalcitonin was negative - D/c doxy and continue supportive care (4) Sepsis Current Visit: Yes Status: Acute Priority: High Comment: - Resolved - Presentation compatbile with sepsis with fever, leukocytosis, tachycardia - Source is cellulitis, blodd cx + group A strep (5) Schizoaffective disorder, bipolar type Current Visit: Yes Status: Chronic Priority: Medium Code(s): F25.0 - SCHIZOAFFECTIVE DISORDER, BIPOLAR TYPE SNOMED Code(s): 45256164 Comment: - Continue Benztropine, Clozapine, Bupropion, Clonazepam, Prolixin (6) Seizure disorder Current Visit: Yes Status: Chronic Code(s): G40.909 - EPILEPSY, UNSP, NOT INTRACTABLE, WITHOUT STATUS EPILEPTICUS SNOMED Code(s): 432190585 Comment: - Continue Keppra (7) HLD (hyperlipidemia) Current Visit: Yes Status: Chronic Priority: Medium Code(s): E78.5 - HYPERLIPIDEMIA, UNSPECIFIED SNOMED Code(s): 03759071 Comment: - Continue Atorvastatin (8) BPH (benign prostatic hyperplasia) Current Visit: Yes Status: Chronic Priority: Medium Code(s): N40.0 - BENIGN PROSTATIC HYPERPLASIA WITHOUT LOWER URINRY TRACT SYMP SNOMED Code(s): 558678472 Comment: - Continue Finasteride (9) Full code status Current Visit: Yes Status: Acute Priority: High Code(s): Z78.9 - OTHER SPECIFIED HEALTH STATUS SNOMED Code(s): 081512597 (10) DVT prophylaxis Current Visit: Yes Status: Acute Priority: High Code(s): QIU6343 - SNOMED Code(s): 796403067 Comment: - SQ heparin Status and Disposition: Inpatient. Anticipate d/c home when medically stable.
--- NOTE | 2017-11-21 16:11 | CONS ---
CONSULTATION REPORT: DATE OF CONSULT: 11/21/17 REQUESTING PHYSICIAN: Dianne García NP CONSULTING SERVICE: Infectious Disease. REASON FOR CONSULT: Cellulitis. IMPRESSION: 1. Left lower leg cellulitis with group A strep bacteremia which is the cause of cellulitis. 2. Obesity. 3. Schizoaffective disorder. 4. Osteoarthritis. RECOMMENDATIONS: Continue ceftriaxone and will stop his doxycycline. Follow his left leg and knee exam. Currently does not appear to have a knee effusion or evidence of a septic arthritis. HISTORY OF PRESENT ILLNESS: This is a 67-year-old man admitted with left leg pain and fever. He had developed a fever rather suddenly in the [place] he [place]. They directed him to the emergency room. He has had a white count of 13,000, was febrile to 40 degrees Celsius. He was started on doxycycline and azithromycin. He was found to have left leg swelling and redness. He denies any knee pain that is worse than its baseline and is not made worse by walking or weightbearing. The leg swelling has eased off a little bit since he has been here. He is trying to keep it elevated, though that has been inconsistent. One of four blood culture bottles are growing group B strep. The followup cultures done on the are negative. PAST MEDICAL HISTORY: 1. Obesity. 2. Schizoaffective disorder, bipolar type. 3. COPD. 4. Seizure disorder. 5. Benign prostatic hypertrophy. 6. Hypertension. MEDICATIONS: 1. Tylenol. 2. Albuterol inhaler. 3. Lipitor. 4. Benztropine as needed. 5. Bisacodyl as needed. 6. Bupropion twice daily. 7. Cholecalciferol. 8. Klonopin as needed. 9. Plavix. 10. Clozapine. 11. Docusate. 12. Doxycycline 100 mg IV every 12 hours. 13. Famotidine. 14. Guaifenesin. 15. Heparin subcutaneous injection. 16. Keppra. 17. Pantoprazole. 18. Nicotine inhaler. 19. Ceftriaxone 1 g a day. 20. Senna. 21. Trazodone at bedtime. 22. Trimethobenzamide. ALLERGIES: CARBAMAZEPINE and PHENYTOIN. FAMILY HISTORY: Mother from murder. Father from unknown causes. SOCIAL HISTORY: Lives in a halfway. No injection drugs. He does smoke a pack a day. REVIEW OF SYSTEMS: All negative for 14-point review of systems. PHYSICAL EXAM: Vital Signs: Temperature 36.4, heart rate 80, respiratory rate 19, blood pressure 124/65, and oxygen saturation 96% on room air. General: He is awake, not in distress. Neurologic: He is oriented x3, follows all commands. Moves all 4 extremities. HEENT: There is no conjunctival hemorrhage. Oropharynx without lesions. Neck is supple without mass. Heart: Regular rate and rhythm without murmurs, rubs, or gallops. Lungs: Clear to auscultation bilaterally. Abdomen is soft, nontender, and nondistended. There are bowel sounds present. Skin: There is no rash or splinter hemorrhage. Musculoskeletal: There is no spine tenderness to palpation. There is no left knee effusion. There is diffuse edema just distal to the knee down through the lower leg, proximal to the ankle. There is slight warmth, trace erythema which is blanching. There is no crepitus or fluctuance. LAB DATA: Creatinine 0.8, CRP 17, white blood cell count 7, hemoglobin 13, platelets 126,000. Please see impressions and recommendations outlined above. Thanks for asking me to see Mr. Coombs in consultation. [id number]/[facility] #: [id number] LUBNA
[2017-11-21] MEDS: cefTRIAXone(*) 1 GM in NS 0.9% 50 ML* 50 ML IVPB SCH (16:36)
[2017-11-21] MEDS: Nystatin CREAM* 15 GM TUBE TOPICAL SCH (21:07)
[2017-11-21] MEDS: Atorvastatin* 20 MG TAB PO SCH (21:09)
[2017-11-22] MEDS: Heparin VIAL(*) 5000 UNITS/ML VIAL (FIVE THOUSAND) SUBCUT SCH ×2 (05:38→14:21)
[2017-11-22] MEDS: Nystatin CREAM* 15 GM TUBE TOPICAL SCH (08:44)
[2017-11-22] MEDS: buPROPion SR TAB.SR* 150 MG PO SCH (09:02)
[2017-11-22] MEDS: levETIRAcetam TAB* 500 MG PO SCH (09:03)
[2017-11-22] MEDS: Senna TAB PO SCH (09:03)
[2017-11-22] MEDS: Cholecalciferol TAB* 1000 UNITS PO SCH (09:04)
[2017-11-22] MEDS: Finasteride TAB* 5 MG PO SCH (09:06)
[2017-11-22] MEDS: Clopidogrel TAB* 75 MG PO SCH (09:06)
[2017-11-22] MEDS: CloZAPine TAB* 100 MG TAB PO SCH (09:06)
[2017-11-22] MEDS: guaiFENesin ER TAB 600 MG PO SCH (09:07)
[2017-11-22] MEDS: fluPHENAZine HCL TAB* 5 MG PO SCH (09:07)
[2017-11-22] MEDS: Docusate CAP* 100 MG PO SCH (09:07)
[2017-11-22] MEDS: Sertraline* 100 MG TAB PO SCH (09:10)
[2017-11-22] MEDS: CMC:Pantoprazole TAB (NF) 40 MG TAB PO SCH (09:11)
[2017-11-22] MEDS: Famotidine TAB* 20 MG PO SCH (09:12)
[2017-11-22] MEDS: Polyethylene Glycol 3350* 17 GM PACKET PO SCH (09:12)
[2017-11-22] MEDS ORDERED: guaiFENesin LIQ* 100 MG/5 ML UDC PO PRN (10:04)
[2017-11-22 13:07] VITALS: BP 110/70
--- NOTE | 2017-11-24 04:40 | DS ---
CC: DANAE Epstein * DISCHARGE SUMMARY: DATE OF ADMISSION: 11/18/17 DATE OF DISCHARGE: 11/22/17 PRIMARY CARE PROVIDER: DANAE Epstein ATTENDING PHYSICIAN: Dr. Mao Scherer * (dictated by Dianne García NP). PRIMARY DIAGNOSES: 1. Left lower leg cellulitis. 2. Group A Strep bacteremia. 3. Pneumonia. 4. Sepsis. SECONDARY DIAGNOSES: 1. Schizoaffective disorder, bipolar type. 2. Seizure disorder. 3. Hyperlipidemia. 4. Benign prostatic hypertrophy. 5. Chronic obstructive pulmonary disease. STUDIES WHILE IN THE HOSPITAL: 1. Chest x-ray on 11/18/17 reads as chest x-ray findings could be compatible with mild vascular congestion in the correct clinical setting. 2. Left leg venous Doppler study on 11/20/17 reads as no evidence of deep vein thrombosis. CONSULTATIONS WHILE IN THE HOSPITAL: 1. Dr. Pantoja saw the patient in consultation on 11/21/17 for bacteremia. At that point, he recommended continuing ceftriaxone, stopping doxycycline, follow left leg and knee exam. No evidence of knee effusion or septic arthritis. DISCHARGE MEDICATIONS: New home medications: 1. Amoxicillin 500 mg p.o. t.i.d. for 7 days. 2. Guaifenesin 5 mL p.o. q.4 hours p.r.n. cough. Continued home medications: 1. Acetaminophen 650 mg p.o. q.4 hours p.r.n. 2. Fosamax 70 mg p.o. every Tuesday. 3. Atorvastatin 20 mg p.o. daily. 4. Cogentin 1 mg p.o. q.6 hours p.r.n. 5. Dulcolax 5 mg p.o. b.i.d. p.r.n. 6. Symbicort 2 puffs b.i.d. p.r.n. 7. Bupropion 150 mg p.o. b.i.d. 8. Capsaicin 0.1% topical b.i.d. 9. Vitamin D 3000 units p.o. daily. 10. Clonazepam 0.5 mg p.o. t.i.d. p.r.n. 11. Clopidogrel 75 mg p.o. daily. 12. Clozapine 100 mg p.o. in the morning, 200 mg p.o. at bedtime. 13. Finasteride 5 mg p.o. daily. 14. Fluphenazine 5 mg p.o. b.i.d. 15. Keppra 750 mg p.o. b.i.d. 16. Meloxicam 30 mg p.o. daily. 17. Nicotine gum 4 mg p.o. q.1 hour p.r.n. 18. Pantoprazole 40 mg p.o. daily. 19. MiraLAX 17 g p.o. daily. 20. Ranitidine 150 mg p.o. b.i.d. 21. Sennosides/docusate sodium 2 tabs p.o. b.i.d. 22. Sertraline 200 mg p.o. daily. 23. Trazodone 50 mg p.o. daily. 24. Macrodantin 100 mg p.o. at bedtime. HISTORY OF PRESENT ILLNESS AND HOSPITAL COURSE: Mr. Coombs is a 67-year-old male with past medical history of seizures, BPH, schizoaffective disorder, COPD and hypertension, who presented to the emergency room on 11/18/17 with complaints of fever, chills, shortness of breath and cough. Please see the history and physical by DANAE [place], for a complete summary of the events leading up to this hospitalization; but in short, the patient resides at [facility] due to his mental illness. It was noted by staff that he was not feeling well for approximately 2 days. He had worsening cough and shortness of breath with exertion. Eventually, he had full body chills and fever up to 104 and was subsequently taken to the emergency room. While in the emergency room, he was found to have slight leukocytosis, slightly elevated CRP, temperature up to 104, tachycardia, 1 episode of hypotension, rigors, and a chest x-ray showing interstitial findings. Due to concern for pneumonia, the hospitalist service admitted the patient. He was placed on ceftriaxone and doxy and was rehydrated with IV fluids. He was placed on albuterol nebulizers and received aggressive pulmonary toileting. It was noted that the patient had a procalcitonin of 0.1. It was believed at that time that his sepsis was secondary to pneumonia, although late in the day on 11/19/17, it was noted that the patient developed left lower extremity edema and erythema compatible with cellulitis. Left leg ultrasound was negative as noted above. The patient was kept on the same antibiotics. On 11/20/17, the patient was noted to have positive blood cultures for Strep pyogenes, group A strep. It was determined at that time that his sepsis was likely related to his cellulitis and it is more likely that he had a mild viral pneumonia due to the negative procalcitonin. Infectious Disease was consulted for bacteremia as noted above. On 11/21/17, his cellulitis was noted to be improving, but there was still a moderate amount of erythema and edema to the left lower leg. On , it was noted that the erythema had essentially resolved. The patient had range of motion in the left leg comparable to that of the right leg. I discussed the case with Dr. Pantoja, who felt as though the patient would be stable for discharge with a 7-day course of amoxicillin as an outpatient. I will also note that the patient is on clozapine, which requires frequent monitoring of the absolute neutrophil count. It appears as though the patient had not had any documented ANC counts in the database for over 1 year. This information was updated by one of the pharmacists here during the admission. Mr. Coombs is stable for discharge home today. Vital signs are as follows: Temp 98.2, heart rate 73, respiratory rate 17, oxygen saturation 97% on room air , blood pressure 110/70. DISCHARGE PLAN: Mr. Coombs will be discharged back home to [facility]. Activity will be regular as tolerated. Diet will be regular as tolerated. Medications are noted above. The patient will be continuing his home medications and should complete a 7-day course of amoxicillin. He should follow up with his primary care provider in 4 to 7 days. He has been instructed to return to the emergency room or nearest hospital for any worsening of symptoms, shortness of breath, lightheadedness, dizziness, chest discomfort, high fevers, chills, night sweats, loss of consciousness, or any other worrisome signs or symptoms. This is a summarized report of a complex medical history and hospital stay. For further details, please see the entire medical record. TIME SPENT: Approximately 45 minutes were spent on this discharge, greater than half of that time was spent [id number] with the patient discussing discharge plans and instructions. DIANNE GARCÍA, DESIGN PROJECT MANAGER [id number]/[facility] #: [id number] [facility]OSPITAL[facility]ardo
== END 2017-11-22 15:15 | disposition home or self-care (01) | DRG 871 ==
LOC: ED 15:33 → MED 19:12 → ED 20:02 → MED 11-20 12:59
PROVIDERS: ADMIT Internal Medicine; ATTEND Internal Medicine
DX: A41.9 Sepsis, unspecified organism (principal); J12.9 Viral pneumonia, unspecified; L03.116 Cellulitis of left lower limb; B95.0 Streptococcus, group A, as the cause of diseases classified elsewhere; F25.0 Schizoaffective disorder, bipolar type; J44.9 Chronic obstructive pulmonary disease, unspecified; G40.909 Epilepsy, unspecified, not intractable, without status epilepticus; E78.5 Hyperlipidemia, unspecified; N40.0 Benign prostatic hyperplasia without lower urinary tract symptoms; I10 Essential (primary) hypertension; F17.210 Nicotine dependence, cigarettes, uncomplicated; F10.21 Alcohol dependence, in remission; E66.9 Obesity, unspecified; Z79.1 Long term (current) use of non-steroidal anti-inflammatories (NSAID); Z79.02 Long term (current) use of antithrombotics/antiplatelets; Z68.33 Body mass index [BMI] 33.0-33.9, adult; Z79.899 Other long term (current) drug therapy; Z88.8 Allergy status to other drugs, medicaments and biological substances
CPT/HCPCS: 36415; 71045; 80048; 80053; 81003; 82550; 83605; 83880; 84145; 84484; 85025; 85610; 85652; 85730; 86140; 87040; 87077; 87186; 87205; 87899; 90686; 93005; 94640; 99284; A9270-GY; J0456; J0696; J1644; J3370

== ENCOUNTER 2019-01-09 13:18 | Emergency (ER) | payer OTHER ==
--- NOTE | 2019-01-09 14:12 | ED ---
Lower Extremity - HPI Summary HPI Summary: Patient is a 68 y/o M presenting to the ED via EMS for a chief complaint of generalized weakness. Patient reports having a fall on 01/09/19, landing on his left knee. He describes hearing a snapping sound during the fall. He now complains of left knee pain with swelling, numbness of his L ankle for the last 2-3 weeks, and left ankle pain. He states he has been increasingly tired for the last 2-3 days and has chills. He occasionally has back pain but no new pain. He reports frequent falls for the last 6 months. Patient denies numbness and tingling in the right LE, LOC, fever, nausea, vomiting, headache, or neck pain. No bowel or bladder incontinence. No fevers. He denies any aggravating or alleviating factors. PSHx is significant for left knee replacement 6 months [address] performed by Dr. Le. PMHx of DM is denied. - History of Current Complaint Chief Complaint: EDWeakness Stated Complaint: KNEE PAIN PER EMS Time Seen by Provider: 01/09/19 13:24 Hx Obtained From: Patient Mechanism Of Injury: Fall From A Standing Position Onset of Pain: Immediate Onset/Duration: Still Present Severity Initially: Mild Severity Currently: Mild Pain Intensity: 3 Pain Scale Used: 0-10 Numeric Timing: Constant Location: Is Discrete @ - Left ankle and left knee Associated Signs And Symptoms: Positive: Swelling - Left knee, Weakness - Generalized, Knee Pain - Left. Negative: Fever Aggravating Factor(s): Nothing Alleviating Factor(s): Nothing - Allergies/Home Medications Allergies/Adverse Reactions: Allergies Allergy/AdvReac Type Severity Reaction Status Date / Time carbamazepine Allergy Unknown Verified 11/18/17 21:06 Reaction Details phenytoin Allergy Unknown Verified 11/18/17 21:06 Reaction Details Home Medications: Home Medications Aspirin EC TAB* [Ecotrin EC Low Dose 81 MG*] 81 mg PO DAILY 01/09/19 [History Confirmed 01/09/19] Budesonide/Formote 160/4.5(NF) [Symbicort 160/4.5 (NF)] 2 puff INH BID 01/09/19 [History Confirmed 01/09/19] Cetirizine* [ZyrTEC 10 MG TAB*] 10 mg PO DAILY 01/09/19 [History Confirmed 01/09] Clopidogrel TAB* [Plavix TAB*] 75 mg PO QAM 01/09/19 [History Confirmed 01/09/19 ] Diclofenac 1% GEL (NF) [Voltaren 1% GEL (NF)] 1 applic TOPICAL QID 01/09/19 [ History Confirmed 01/09/19] Hydrophilic Cream [Triad] 1 applic TOPICAL DAILY PRN 01/09/19 [History Confirmed 01/09/19] Methyl Salicylate 1 applic TOPICAL DAILY PRN 01/09/19 [History Confirmed ] Miconazole Nitrate [Anti-Fungal Powder] 1 applic TOPICAL DAILY PRN 01/09/19 [ History Confirmed 01/09/19] Polyethylene Glycol 3350* [Miralax*] 17 gm PO DAILY PRN 01/09/19 [History Confirmed 01/09/19] Sertraline* [Zoloft*] 200 mg PO QAM 01/09/19 [History Confirmed 01/09/19] Urea/Hydrophilic Cream [Betamide Lotion] 1 appful TOPICAL DAILY PRN 01/09/19 [ History Confirmed 01/09/19] lamoTRIgine TAB(*) [LaMICtal TAB(*)] 150 mg PO BID 01/09/19 [History Confirmed 01/09/19] PMH/Surg Hx/FS Hx/Imm Hx Previously Healthy: Yes Endocrine/Hematology History: Denies: Hx Diabetes Cardiovascular History: Reports: Hx Hypertension Denies: Hx Congestive Heart Failure Respiratory History: Reports: Hx Chronic Bronchitis, Hx Chronic Obstructive Pulmonary Disease (COPD) Denies: Other Respiratory Problems/Disorders GI History: Reports: Hx Ulcer - gastric, Other GI Disorders - gastritis and hernia History: Reports: Other Problems/Disorders - gastric ulcer Denies: Hx Renal Disease Musculoskeletal History: Reports: Hx Arthritis - left knee Denies: Hx Back Problems Sensory History: Reports: Hx Cataracts - Had removed, Hx Contacts or Glasses, Hx Vision Problem Denies: Hx Legally Blind, Hx Deafness, Hx Hearing Aid Opthamlomology History: Reports: Hx Cataracts - Had removed, Hx Contacts or Glasses, Hx Vision Problem Denies: Hx Legally Blind EENT History: Denies: Hx Deafness Neurological History: Reports: Hx Migraine, Hx Seizures, Other Neuro Impairments /Disorders - pt reports occasional blackout once/twice year Denies: Hx Transient Ischemic Attacks (TIA) Psychiatric History: Reports: Hx Anxiety, Hx Depression, Hx Post Traumatic Stress Disorder, Hx Schizophrenia, Hx Bipolar Disorder, Hx Suicide Attempt, Hx of Violent Episodes Against Others, Hx Substance Abuse - ETOH Denies: Hx Eating Disorder - Surgical History Surgical History: Yes Surgery Procedure, Year, and Place: left knee surg - Immunization History Date of Tetanus Vaccine: 2011 Date of Influenza Vaccine: 01/08/16 Infectious Disease History: No Infectious Disease History: Reports: Hx Hepatitis Denies: Hx Clostridium Difficile, Hx Human Immunodeficiency Virus (HIV), Hx of Known/Suspected MRSA, Hx Shingles, Hx Tuberculosis, Hx Known/Suspected VRE, Hx Known/Suspected VRSA, History Other Infectious Disease, Traveled Outside the [place] in Last 30 Days - Family History Known Family History: Positive: Other - ETOH abuse Negative: Cardiac Disease, Diabetes - Social History Occupation: Disabled Alcohol Use: None Alcohol Amount: None now - Hx ETOH Abuse Hx Substance Use: No Substance Use Type: Reports: None Substance Use Comment - Amount & Last Used: Thorazine prescribed Hx Tobacco Use: Yes Smoking Status (MU): Heavy Every Day Tobacco Smoker Type: Cigarettes Length of Time of Smoking/Using Tobacco: 20 years Have You Smoked in the Last Year: Yes Review of Systems Negative: Fever Negative: Vomiting, Nausea Positive: Arthralgia - Left ankle and left knee, Edema - Left knee Positive: Weakness - Generalized, Paresthesia - foot . Negative: Headache, Syncope All Other Systems Reviewed And Are Negative: Yes Physical Exam - Summary Physical Exam Summary: Constitutional: Well-developed, Well-nourished, Alert. (-) Distressed Skin: Warm, Dry, old scar to L knee HENT: Normocephalic; Atraumatic, no c spine ttp Eyes: Conjunctiva normal Neck: Musculoskeletal ROM normal neck. (-) JVD, (-) Stridor, (-) Nuchal rigidity Cardio: Rhythm regular, rate normal, Heart sounds normal; Intact distal pulses; Radial pulses are 2+ and symmetric. (-) Murmur Pulmonary/Chest wall: Effort normal. (-) Respiratory distress, (-) Wheezes, (-) Rales Abd: Soft, (-) tenderness, (-) Distension, (-) Guarding, (-) Rebound Musculoskeletal: Diffuse mild tenderness of the left knee with limited ROM 2/2 pain. Mild tenderness of the lateral left ankle, subjective (chronic) paresthesia of the left ankle. No thigh or hip pain, no thoracic, lumbar, or cervical tenderness. Full ROM of thigh and ankle. Lymph: (-) Cervical adenopathy Neuro: Alert, Oriented x3 Psych: Mood and affect Normal Triage Information Reviewed: Yes Vital Signs On Initial Exam: Initial Vitals Temp Pulse Resp BP Pulse Ox 98.5 F 84 16 143/81 95 01/09/19 13:26 01/09/19 13:26 01/09/19 13:26 01/09/19 13:26 01/09/19 13:26 Vital Signs Reviewed: Yes Procedures - Sedation Patient Received Moderate/Deep Sedation with Procedure: No Diagnostics - Vital Signs Vital Signs Temp Pulse Resp BP Pulse Ox 01/09/19 13:27 84 143/81 96 01/09/19 13:26 98.5 F 84 16 143/81 95 - Laboratory Result Diagrams: 01/09/19 13:56 01/09/19 13:56 Lab Statement: Any lab studies that have been ordered have been reviewed, and results considered in the medical decision making process. - Radiology Ankle X-ray Radiology Interpretation Completed By: Radiologist Summary of Radiographic Findings: Ankle X-ray IMPRESSION: SOFT TISSUE SWELLING. NO ACUTE OSSEOUS INJURY. IF SYMPTOMS PERSIST, RECOMMEND REPEAT IMAGING. Reviewed by Dr. Hurt. Knee X-ray Radiology Interpretation Completed By: Radiologist Summary of Radiographic Findings: Knee X-ray IMPRESSION: STATUS POST LEFT KNEE ARTHROPLASTY. NO ACUTE OSSEOUS INJURY. IF SYMPTOMS PERSIST, RECOMMEND REPEAT IMAGING. Reviewed by Dr. Hurt. Foot X-ray Radiology Interpretation Completed By: Radiologist Summary of Radiographic Findings: Foot X-ray IMPRESSION: #. Negative for fracture, radiographic findings of stress reaction, or malalignment. #. 0.5 cm pedunculated osteochondroma at the medial proximal metaphysis of the first distal phalanx. #. Normal variant bipartite lateral sesamoid at the first MTP. Normal variant os peroneum accessory ossicle. #. Mild osteoarthritis at the talocrural joint and first metatarsal phalangeal joint. #. Unremarkable soft tissue contours. Reviewed by Dr. Hurt. Lower Extremity X-ray Radiology Interpretation Completed By: Radiologist Summary of Radiographic Findings: Lower Extremity X-ray IMPRESSION: NO ACUTE OSSEOUS INJURY. IF SYMPTOMS PERSIST, RECOMMEND REPEAT IMAGING. Reviewed by Dr. Paullina. - EKG 14:12 Cardiac Rate: NL - 83 BPM EKG Rhythm: Sinus Rhythm ST Segment: Normal Ectopy: None EKG Comparison: No Significant Change - From 03/13/18. Summary of EKG Findings: An EKG at 14:12 reveals normal sinus rhythm 83 BPM, nml axis, nml intervals. No STEMI. No acute changes. T wave inversion in V1. No change from prior on 03/13/18. Reviewed and interpreted by Dr. Hurt. Re-Evaluation - Re-Evaluation First Eval Re-Evaluation Time: 16:38 Change: Improved Comment: At 16:38, patient is able to ambulate and feels improved. Will f/u w his orthopedic surgeon. No fr on XR. Given james wrap for comfort. Lower Extremity Course/Dx - Course Course Of Treatment: 68 y/o male p/w L knee and ankle pain after a fall. - hx knee replacement 6 months ago at OSH. - PE w old scar to L knee, trace edema, diffuse mild tenderness. No ligamentous instability. - check XR knee and ankle , ti fib. Tylenol for pain. Regarding fatigue no e/o electrolyte disturbance, anemia on labs. EKG unchanged. trop neg, UA without infection. regarding back pain: Back pain ddx. This is a patient who presents with . This patient does not have red flags for emergent cause of back pain. - Spinal metastasis - No constitutional symptoms, weight loss, or known primary cancer to suggest met to spine. - Epidural abscess/osteomyelitis/discitis - No fever/IVDU/indwelling lines to suggest epidural abscess, osteomyelitis, or discitis. - Cauda equina - No bilateral LE weakness/loss of sensation, or loss of urine/bladder control. Therefore imaging/further studies not obtained in emergency department, and likely can safely be deferred to outpatient setting - Diagnoses Provider Diagnoses: Knee pain, Fall Discharge ED - Sign-Out/Discharge Documenting (check all that apply): Patient Departure - Discharge - Discharge Plan Condition: Stable Disposition: HOME Patient Education Materials: Knee Pain (ED) Referrals: Grant Johnson MD [Primary Care Provider] - Additional Instructions: You were seen in the emergency department for knee pain your x-ray did not show any fractures. Please take Tylenol for pain at home. Please follow up with your orthopedic surgeon. If any studies were not completed at the time of discharge you will be called with the relevant results. Please follow up with your primary care doctor in next 2-3 days and return to emergency department for worsening pain, swelling of your knee, numbness or tingling in your legor concerning symptoms. It was a pleasure taking care of you today. - Billing Disposition and Condition Condition: STABLE Disposition: Home - Attestation Statements Document Initiated by Charoibe: Yes Documenting Scribe: Belle Caldwell Provider For Whom Chauncey is Documenting (Include Credential): Aga Hurt MD Scribe Attestation: I, Belle Caldwell, scribed for Aga Hurt MD on 01/10/19 at 1428. Scribe Documentation Reviewed: Yes Provider Attestation: The documentation as recorded by the Belle rouse accurately reflects the service I personally performed and the decisions made by me, Aga Hurt MD Status of Scribe Document: Viewed
[2019-01-09 14:25] LABS: ABS Neutrophils 6.4 10^3/ul (1.5-7.7); Eosinophil % 0.1 %; Hematocrit 48 % (42-52); Hemoglobin 16.2 g/dL (14.0-18.0); Lymphocyte % 11.9 %; Mean Corpuscular HGB Conc 34 g/dL (31-36); Mean Corpuscular Hemoglobin 30 pg (27-31); Mean Corpuscular Volume 89 fL (80-94); Mean Platelet Volume 8.5 fL (7.4-10.4); Nucleated Red Blood Cells % 0.1; Platelet Count 164 10^3/uL (150-450); Red Blood Count 5.36 10^6 /uL (4.18-5.48); Red Cell Distribution Width 14 % (10-15); White Blood Count 8.4 10^3/uL (3.5-10.8)
[2019-01-09 14:44] LABS: Albumin/Globulin Ratio 1.5 (1-3); BUN/Creatinine Ratio 17.8 (8-20); Calcium 9.3 mg/dL (8.6-10.3); EGFR African American 88.9 (>60); EGFR Non-African American 73.5 (>60); Globulin 2.6 g/dL (2-4); Potassium 3.6 mmol/L (3.5-5.0); Total Bilirubin 0.5 mg/dL (0.2-1.0); Total Protein 6.6 g/dL (6.4-8.9)
[2019-01-09] MEDS ORDERED: Acetaminophen TAB* 325 MG PO ONE (16:11)
[2019-01-09 16:16] LABS: Urine Appearance Clear; Urine Bilirubin Negative (Negative); Urine Blood Negative (Negative); Urine Color Yellow; Urine Glucose Negative (Negative); Urine Ketones Negative (Negative); Urine Nitrite Negative (Negative); Urine Protein Negative (Negative); Urine Urobilinogen Negative (Negative)
[2019-01-09 16:55] VITALS: BP 146/105
== END 2019-01-09 16:54 | disposition home or self-care (01) ==
LOC: ED 13:18
DX: M25.562 Pain in left knee (principal); W19.XXXA Unspecified fall, initial encounter; Y92.9 Unspecified place or not applicable; Z96.652 Presence of left artificial knee joint; I10 Essential (primary) hypertension; J44.9 Chronic obstructive pulmonary disease, unspecified; F41.9 Anxiety disorder, unspecified; F20.9 Schizophrenia, unspecified; F31.9 Bipolar disorder, unspecified; F17.210 Nicotine dependence, cigarettes, uncomplicated; Z79.01 Long term (current) use of anticoagulants; Z79.82 Long term (current) use of aspirin; Z79.899 Other long term (current) drug therapy; Z88.8 Allergy status to other drugs, medicaments and biological substances
CPT/HCPCS: 36415; 80053; 81003; 84484; 85025; 93005; 99283; A9270-GY

== ENCOUNTER 2019-01-28 11:58 | Emergency (ER) | payer OTHER ==
--- NOTE | 2019-01-28 12:02 | ED ---
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 He states that he has been in and out of the hospital over the last 3 weeks and that he has pain in his L knee which extends down to his L foot that is rated a 4-5/10 and mainly located around his L calf. He states that he has self-inflicted bruising to his upper abdomen and states that he has issues with schizophrenia. He states that he was leaning while in the chair and was unable to keep himself up and avoid falling. He states that he had a L knee surgery a month or two ago. He denies any fevers, chills, N/V, headaches, CP, hip pain, and SOB. He states that he has a hernia in his abdomen. He states that his leg is swollen which he said wasnt there yesterday. He was previously at [facility] and had an X-Ray on his L leg due to swelling on 01/09/19 which found no acute abnormalities due to a recent surgery that occurred prior to his other visit. He has no aggravating or alleviating factors. He states that he takes a lot of medications at the home due to his surgery and mental illnesses. He has a PMHx of HTN, COPD, recent knee surgery, GI hernia, Schizophrenia, and PTSD. - History of Current Complaint Chief Complaint: EDFall Stated Complaint: PAIN LT LEG PER EMS Time Seen by Provider: 01/28/19 12:01 Hx Obtained From: Patient Mechanism Of Injury: Other - states that he fell out of a chair Onset of Pain: Immediate Onset/Duration: Still Present Severity Initially: Moderate Severity Currently: Moderate Pain Intensity: 5 Pain Scale Used: 0-10 Numeric Timing: Constant Location: Is Discrete @ - L calf Associated Signs And Symptoms: Positive: Negative - chills, N/V, headaches, CP, hip pain, and SOB, Swelling, Bruising - upper abdomen - self inflicted, Knee Pain - L. Negative: Fever, Abdominal Pain Aggravating Factor(s): Nothing Alleviating Factor(s): Nothing - Allergies/Home Medications Allergies/Adverse Reactions: Allergies Allergy/AdvReac Type Severity Reaction Status Date / Time carbamazepine Allergy Unknown Verified 11/18/17 21:06 Reaction Details phenytoin Allergy Unknown Verified 11/18/17 21:06 Reaction Details PMH/Surg Hx/FS Hx/Imm Hx Previously Healthy: Yes Endocrine/Hematology History: Denies: Hx Diabetes Cardiovascular History: Reports: Hx Hypertension Denies: Hx Congestive Heart Failure Respiratory History: Reports: Hx Chronic Bronchitis, Hx Chronic Obstructive Pulmonary Disease (COPD) Denies: Other Respiratory Problems/Disorders GI History: Reports: Hx Ulcer - gastric, Other GI Disorders - gastritis and hernia History: Reports: Other Problems/Disorders - gastric ulcer Denies: Hx Renal Disease Musculoskeletal History: Reports: Hx Arthritis - left knee Denies: Hx Back Problems Sensory History: Reports: Hx Cataracts - Had removed, Hx Contacts or Glasses, Hx Vision Problem Denies: Hx Legally Blind, Hx Deafness, Hx Hearing Aid Opthamlomology History: Reports: Hx Cataracts - Had removed, Hx Contacts or Glasses, Hx Vision Problem Denies: Hx Legally Blind Neurological History: Reports: Hx Migraine, Hx Seizures, Other Neuro Impairments /Disorders - pt reports occasional blackout once/twice year Denies: Hx Transient Ischemic Attacks (TIA) Psychiatric History: Reports: Hx Anxiety, Hx Depression, Hx Post Traumatic Stress Disorder, Hx Schizophrenia, Hx Bipolar Disorder, Hx Suicide Attempt, Hx of Violent Episodes Against Others, Hx Substance Abuse - ETOH Denies: Hx Eating Disorder - Cancer History Hx Chemotherapy: No Hx Radiation Therapy: No - Surgical History Surgical History: Yes Surgery Procedure, Year, and Place: left knee surg - Immunization History Date of Tetanus Vaccine: 2011 Date of Influenza Vaccine: 01/08/16 Immunizations Up to Date: Yes Infectious Disease History: Reports: Hx Hepatitis Denies: Hx Clostridium Difficile, Hx Human Immunodeficiency Virus (HIV), Hx of Known/Suspected MRSA, Hx Shingles, Hx Tuberculosis, Hx Known/Suspected VRE, Hx Known/Suspected VRSA, History Other Infectious Disease - Family History Known Family History: Positive: Other - ETOH abuse Negative: Cardiac Disease, Diabetes - Social History Occupation: Retired Lives: [facility] Alcohol Use: None Alcohol Amount: None now - Hx ETOH Abuse Hx Substance Use: No Substance Use Type: Reports: None Substance Use Comment - Amount & Last Used: Thorazine prescribed Hx Tobacco Use: Yes Smoking Status (MU): Heavy Every Day Tobacco Smoker Type: Cigarettes Length of Time of Smoking/Using Tobacco: 20 years Have You Smoked in the Last Year: Yes Review of Systems Negative: Fever, Chills Negative: Chest Pain Negative: Shortness Of Breath Negative: Vomiting, Nausea Musculoskeletal: Negative - hip pain Positive: Other - POSITIVE: L calf pain, L lower leg swelling Positive: Bruising - upper abdomen due to self inflicted injuries Negative: Headache All Other Systems Reviewed And Are Negative: Yes Physical Exam - Summary Physical Exam Summary: Constitutional: Well-developed, Well-nourished, Awake, alert, slurring his words. (-) Distressed Skin: Warm, Dry HENT: Normocephalic; Atraumatic Eyes: Conjunctiva normal Neck: Musculoskeletal ROM normal neck. (-) JVD, (-) Stridor, (-) Tracheal deviation Cardio: Rhythm regular, rate normal, Heart sounds normal; Intact distal pulses; The pedal pulses are 2+ and symmetric. Radial pulses are 2+ and symmetric. Pulmonary/Chest wall: Effort normal. (-) Respiratory distress, (-) Wheezes, (-) Rales Abd: Soft, (-) tenderness, (-) Distension, (-) Guarding, (-) Rebound Musculoskeletal: (-) Edema, Swelling throughout L lower extremity, no bony tenderness or deformity Neuro: Alert, Oriented x3 Psych: Mood and affect Normal Triage Information Reviewed: Yes Vital Signs On Initial Exam: Temp Pulse Resp BP SpO2 FiO2 99.2 F 86 16 126/69 98 01/28/19 12:00 01/28/19 12:00 01/28/19 12:00 01/28/19 12:00 01/28/19 12:00 Vital Signs Reviewed: Yes Procedures - Sedation Patient Received Moderate/Deep Sedation with Procedure: No Diagnostics - Laboratory Lab Statement: Any lab studies that have been ordered have been reviewed, and results considered in the medical decision making process. - Ultrasound Venous Doppler Study Ultrasound Interpretation Completed By: Radiologist Summary of Ultrasound Findings: NO EVIDENCE OF LEFT LOWER DVT. ED physician has reviewed this report. 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 He states that he has been in and out of the hospital over the last 3 weeks and that he has pain in his L knee which extends down to his L foot that is rated a 4-5/10 and mainly located around his L calf. He states that he has self-inflicted bruising to his upper abdomen and states that he has issues with schizophrenia. He states that he was leaning while in the chair and was unable to keep himself up and avoid falling. He states that he takes a lot of medications at the home due to his surgery and mental illnesses. He has no aggravating or alleviating factors. He has a PMHx of HTN, COPD, recent knee surgery, GI hernia, Schizophrenia, and PTSD. His PE found that he is Awake, alert, slurring his words. He also has Swelling throughout L lower extremity, no bony tenderness or deformity. His Venous doppler study found NO EVIDENCE OF LEFT LOWER DVT. Patient ambulated with steady gait with assistance of a walker. Patient's shelter contacted, patient has a walker at home. Patient comfortable with discharge. He was Dx with recurrent falls and leg pain. - Diagnoses Provider Diagnoses: Recurrent falls, Leg pain, left Discharge ED - Sign-Out/Discharge Documenting (check all that apply): Patient Departure - discharge - Discharge Plan Condition: Stable Disposition: HOME Patient Education Materials: Leg Pain (ED), Fall Prevention for Older Adults ( ED) Referrals: Grant Johnson MD [Primary Care Provider] - 2 Days Additional Instructions: PLEASE FOLLOW UP WITH YOUR PRIMARY CARE PROVIDER IN 1-3 DAYS AND RETURN TO THE EMERGENCY DEPARTMENT FOR ANY NEW OR WORSENING SYMPTOMS. - Attestation Statements Document Initiated by Scribe: Yes Documenting Scribe: Christian Milner Provider For Whom Gabriellae is Documenting (Include Credential): Bryon Leo MD Scribe Attestation: Christian Matthews, scribed for Bryon Leo MD on 01/28/19 at 1428. Status of Scribe Document: Ready
[2019-01-28 16:14] VITALS: BP 118/59
== END 2019-01-28 14:50 | disposition home or self-care (01) ==
LOC: ED 11:58
DX: M79.605 Pain in left leg (principal); Z91.81 History of falling; I10 Essential (primary) hypertension; J44.9 Chronic obstructive pulmonary disease, unspecified; F41.9 Anxiety disorder, unspecified; F43.10 Post-traumatic stress disorder, unspecified; F20.9 Schizophrenia, unspecified; F31.9 Bipolar disorder, unspecified; Z88.8 Allergy status to other drugs, medicaments and biological substances; F17.210 Nicotine dependence, cigarettes, uncomplicated; Z79.899 Other long term (current) drug therapy
CPT/HCPCS: 99282

== ENCOUNTER 2019-01-29 15:00 | Emergency (ER) | payer OTHER ==
--- NOTE | 2019-01-29 15:08 | ED ---
Psychiatric Complaint - HPI Summary HPI Summary: This patient is a 68 year old male presenting to [facility] from with a psychiatric complaint. The patient has felt weakness and that he cannot walk. He states numbness in his left leg. He was here yesterday and the skilled nursing forgot to mention the psychiatric problems. He states he has had suicidal ideations. Pt denies any fever, chills, erythema of eyes, sore throat, CP, SOB, cough, abdominal pain, N/V, dysuria, hematuria, myalgia, edema, rash, or dizziness - History Of Current Complaint Hx Obtained From: Patient Has Suicidal: Reports: Thoughts - Allergies/Home Medications Allergies/Adverse Reactions: Allergies Allergy/AdvReac Type Severity Reaction Status Date / Time carbamazepine Allergy Unknown Verified 11/18/17 21:06 Reaction Details phenytoin Allergy Unknown Verified 11/18/17 21:06 Reaction Details Home Medications: Home Medications Bacitracin OINTMENT* 1 applic TOPICAL BID 01/29/19 [History Confirmed 01/29/19] Nitrofurantoin Macrocrystal [Nitrofurantoin] 100 mg PO BEDTIME 01/29/19 [ History Confirmed 01/29/19] Saline NASAL SPRAY 0.65%* [Sodium Chloride 0.65% Nasal Readlyn*] 2 spray BOTH NARES QID 01/29/19 [History Confirmed 01/29/19] levETIRAcetam TAB* [Keppra TAB*] 750 mg PO BID 01/29/19 [History Confirmed 01/29] PMH/Surg Hx/FS Hx/Imm Hx Endocrine/Hematology History: Denies: Hx Diabetes Cardiovascular History: Reports: Hx Hypertension Denies: Hx Congestive Heart Failure Respiratory History: Reports: Hx Chronic Bronchitis, Hx Chronic Obstructive Pulmonary Disease (COPD) Denies: Other Respiratory Problems/Disorders GI History: Reports: Hx Ulcer - gastric, Other GI Disorders - gastritis and hernia History: Reports: Other Problems/Disorders - gastric ulcer Denies: Hx Renal Disease Musculoskeletal History: Reports: Hx Arthritis - left knee Denies: Hx Back Problems Sensory History: Reports: Hx Cataracts - Had removed, Hx Contacts or Glasses, Hx Vision Problem Denies: Hx Legally Blind, Hx Deafness, Hx Hearing Aid Opthamlomology History: Reports: Hx Cataracts - Had removed, Hx Contacts or Glasses, Hx Vision Problem Denies: Hx Legally Blind Neurological History: Reports: Hx Migraine, Hx Seizures, Other Neuro Impairments /Disorders - pt reports occasional blackout once/twice year Denies: Hx Transient Ischemic Attacks (TIA) Psychiatric History: Reports: Hx Anxiety, Hx Depression, Hx Post Traumatic Stress Disorder, Hx Schizophrenia, Hx Bipolar Disorder, Hx Suicide Attempt, Hx of Violent Episodes Against Others, Hx Substance Abuse - ETOH Denies: Hx Eating Disorder - Cancer History Hx Chemotherapy: No Hx Radiation Therapy: No - Surgical History Surgery Procedure, Year, and Place: left knee surg - Immunization History Date of Tetanus Vaccine: 2011 Date of Influenza Vaccine: 01/08/16 Infectious Disease History: Reports: Hx Hepatitis Denies: Hx Clostridium Difficile, Hx Human Immunodeficiency Virus (HIV), Hx of Known/Suspected MRSA, Hx Shingles, Hx Tuberculosis, Hx Known/Suspected VRE, Hx Known/Suspected VRSA, History Other Infectious Disease - Family History Known Family History: Positive: Other - ETOH abuse Negative: Cardiac Disease, Diabetes - Social History Alcohol Use: None Alcohol Amount: None now - Hx ETOH Abuse Hx Substance Use: No Substance Use Type: Reports: None Substance Use Comment - Amount & Last Used: Thorazine prescribed Hx Tobacco Use: Yes Smoking Status (MU): Heavy Every Day Tobacco Smoker Type: Cigarettes Length of Time of Smoking/Using Tobacco: 20 years Have You Smoked in the Last Year: Yes Review of Systems Positive: Other - Inability to ambulate. Negative: Fever, Chills Negative: Erythema Negative: Sore Throat Negative: Chest Pain Negative: Shortness Of Breath, Cough Negative: Abdominal Pain, Vomiting, Nausea Negative: dysuria, hematuria Negative: Myalgia, Edema Negative: Rash Neurological: Other - Neg: Dizziness Positive: Numbness Psychological: Other - SI All Other Systems Reviewed And Are Negative: No Physical Exam - Summary Physical Exam Summary: Constitutional: Well-developed, Well-nourished, Alert. (-) Distressed Skin: Warm, Dry HENT: Normocephalic; Atraumatic Eyes: Conjunctiva normal Neck: Musculoskeletal ROM normal neck. (-) JVD, (-) Stridor, (-) Tracheal deviation Cardio: Rhythm regular, rate normal, Heart sounds normal; Intact distal pulses; The pedal pulses are 2+ and symmetric. Radial pulses are 2+ and symmetric. (-) Murmur Pulmonary/Chest wall: Effort normal. (-) Respiratory distress, (-) Wheezes, (-) Rales Abd: Soft, (-) tenderness, (-) Distension, (-) Guarding, (-) Rebound Musculoskeletal: (-) Edema Lymph: (-) Cervical adenopathy Neuro: Alert, Oriented x3 Psych: Mood and affect Normal Triage Information Reviewed: Yes Vital Signs On Initial Exam: Temp Pulse Resp BP Pulse Ox 98.4 F 74 16 142/82 94 01/29/19 15:03 01/29/19 15:03 01/29/19 15:03 01/29/19 15:03 01/29/19 15:03 Vital Signs Reviewed: Yes Procedures - Sedation Patient Received Moderate/Deep Sedation with Procedure: No Diagnostics - Laboratory Result Diagrams: 01/29/19 15:19 01/29/19 15:19 Lab Statement: Any lab studies that have been ordered have been reviewed, and results considered in the medical decision making process. Course/Dx - Course Course Of Treatment: This patient is a 68 year old male presenting to [facility] from with a psychiatric complaint. Bloodwork is unremarkable. Patient cleared for MHE. Patient will be signed out to Dr. Andrea pending MHE. - Differential Dx/Clinical Impression Provider Diagnosis: Suicidal ideation Discharge ED - Sign-Out/Discharge Documenting (check all that apply): Sign-Out Patient Signing out patient TO: Orlando Andrea - At shift change 2200 pending MHE. - Discharge Plan Condition: Stable Referrals: Grant Johnson MD [Primary Care Provider] - - Attestation Statements Document Initiated by Scribe: Yes Documenting Scribe: Yoel Quarles Provider For Whom Scribe is Documenting (Include Credential): Jayce Christianson MD Scribe Attestation: Yoel Matthews, scribed for Jayce Christianson MD on 01/29/19 at 2156. Status of Scribe Document: Ready
[2019-01-29 15:26] LABS: ABS Lymphocytes 1.1 10^3/ul (1.0-4.8); ABS Monocytes 0.6 10^3/ul (0-0.8); ABS Neutrophils 4.3 10^3/ul (1.5-7.7); Eosinophil % 0.1 %; Hematocrit 45 % (42-52); Hemoglobin 15.2 g/dL (14.0-18.0); Lymphocyte % 17.7 %; Mean Corpuscular HGB Conc 34 g/dL (31-36); Mean Corpuscular Hemoglobin 31 pg (27-31); Mean Corpuscular Volume 90 fL (80-94); Mean Platelet Volume 8.2 fL (7.4-10.4); Nucleated Red Blood Cells % 0.1; Platelet Count 189 10^3/uL (150-450); Red Blood Count 4.98 10^6 /uL (4.18-5.48); Red Cell Distribution Width 14 % (10-15); White Blood Count 6.1 10^3/uL (3.5-10.8)
[2019-01-29 16:18] LABS: ALT 6 U/L (7-52); AST 14 U/L (13-39); Albumin 4.5 g/dL (3.2-5.2); Albumin/Globulin Ratio 1.7 (1-3); Alkaline Phosphatase 115 U/L (34-104); Anion Gap 6 mmol/L (2-11); Blood Urea Nitrogen 20 mg/dL (6-24); CO2 Carbon Dioxide 32 mmol/L (22-32); Calcium 9.4 mg/dL (8.6-10.3); Chloride 103 mmol/L (101-111); EGFR African American 100.3 (>60); EGFR Non-African American 82.9 (>60); Globulin 2.6 g/dL (2-4); Glucose 107 mg/dL (70-100); Sodium 141 mmol/L (135-145); Total Protein 7.1 g/dL (6.4-8.9)
[2019-01-29 16:21] LABS: TSH (Thyroid Stimulating Horm) 1.75 mcIU/mL (0.34-5.60)
[2019-01-29 16:23] LABS: Acetaminophen < 15 mcg/mL; Alcohol < 10 mg/dL (<10); Salicylate < 2.50 mg/dL (<30)
[2019-01-29] MEDS ORDERED: clonazePAM TAB(*) 0.5 MG PO ONE (21:20)
[2019-01-29] MEDS ORDERED: CloZAPine TAB* 100 MG TAB PO ONE ×2 (21:24→23:00)
[2019-01-29] MEDS ORDERED: fluPHENAZine HCL TAB* 5 MG PO ONE (21:24)
[2019-01-29] MEDS ORDERED: lamoTRIgine TAB(*) 25 MG PO ONE ×2 (21:24→23:00)
[2019-01-29] MEDS ORDERED: lamoTRIgine TAB(*) 100 MG PO ONE (23:00)
[2019-01-29] MEDS ORDERED: CloZAPine TAB* 25 MG TAB PO ONE (23:00)
--- NOTE | 2019-01-29 23:11 | ED ---
Progress - Progress Note Progress Note: Patient is received as a sign out from Dr. Christianson to Dr. Andrea at 2200 shift change pending disposition of this mental health patient. Patient is a mental health hold until morning, 01/30/19 for further evaluation with [facility] Patient is signed out to Dr. Hurt at 0700 01/30/19 shift change pending further psychiatric evaluation and disposition. Course/Dx - Course Course Of Treatment: Patient is received as a sign out from Dr. Christianson to Dr. Andrea at 2200 01/29/19 shift change pending disposition of this mental health patient. Patient is a mental health hold until morning, 01/30/19 for further evaluation with possible [facility] to [facility]. Patient is signed out to Dr. Hurt at 0700 01/30/19 shift change pending further psychiatric evaluation and disposition. - Diagnoses Provider Diagnoses: Mood disorder Discharge ED - Sign-Out/Discharge Documenting (check all that apply): Sign-Out Patient, Receiving Sign-Out Signing out patient TO: Aga Hurt Receiving patient FROM: Jayce Christianson - Discharge Plan Condition: Stable Disposition: HOME Referrals: Grant Johnson MD [Primary Care Provider] - - Billing Disposition and Condition Condition: STABLE Disposition: Home - Attestation Statements Document Initiated by Chauncey: Yes Documenting Scribe: OSCAR CORRIGAN Provider For Whom Chauncey is Documenting (Include Credential): EVIE ANDREA MD Scribe Attestation: OSCAR Matthews, marlineed for EVIE ANDREA MD on 02/03/19 at 0636. Scribe Documentation Reviewed: Yes Provider Attestation: The documentation as recorded by the OSCAR oruse accurately reflects the service I personally performed and the decisions made by , EVIE ANDREA MD Status of Scribe Document: Viewed
[2019-01-30 07:42] LABS: Urine Appearance Clear; Urine Bilirubin Negative (Negative); Urine Blood Negative (Negative); Urine Color Yellow; Urine Glucose Negative (Negative); Urine Ketones Negative (Negative); Urine Nitrite Negative (Negative); Urine Protein Negative (Negative); Urine Specific Gravity 1.018 (1.010-1.030); Urine Urobilinogen Negative (Negative)
[2019-01-30 07:52] LABS: Urine Benzodiazepine Screen None Detected (None Detect); Urine Opiates Screen None Detected (None Detect)
--- NOTE | 2019-01-30 10:16 | ED ---
Progress - Progress Note Progress Note: Patient is signed out to Dr. Hurt at 0700 01/30/19 shift change pending further psychiatric evaluation and disposition. An EKG at 1030 reveals normal sinus rhythm at 81 BPM with nml axis, nml intervals. No STEMI. No acute changes. Pt will be transferred to [place] for SI, per psych. Course/Dx - Course Course Of Treatment: Patient is signed out to Dr. Hurt at 0700 01/30/19 shift change pending further psychiatric evaluation and disposition. An EKG at 1030 reveals normal sinus rhythm at 81 BPM with nml axis, nml intervals. No STEMI. No acute changes. Pt will be transferred to [place] for SI, per psych. Pt is signed out from Dr. Hurt to Dr. Perez at 1900 01/30/19 [facility]. - Diagnoses Provider Diagnoses: Suicidal ideation Discharge ED - Sign-Out/Discharge Documenting (check all that apply): Patient Departure - transferred - Discharge Plan Condition: Stable Disposition: PSYCHIATRIC FACILITY-OTHER Referrals: Grant Johnson MD [Primary Care Provider] - - Billing Disposition and Condition Condition: STABLE Disposition: Psychiatric Facility Other - Attestation Statements Document Initiated by Charoibe: Yes Documenting Scribe: Melinda Arteaga Provider For Whom Chauncey is Documenting (Include Credential): Dr. Aga Hurt MD Scribe Attestation: Melinda Matthews scribed for Dr. Aga Hurt MD on 01/30/19 at 1847. Scribe Documentation Reviewed: Yes Provider Attestation: The documentation as recorded by the Melinda rouse accurately reflects the service I personally performed and the decisions made by me, Dr. Aga Hurt MD Status of Scribe Document: Viewed
--- NOTE | 2019-01-30 10:54 | PN ---
ED Psychiatric Progress Note Date of Service: 01/30/19 Subjective: This is a 68 year-old M who is pending admission to accepting [facility] facility for inpatient psychiatric treatment. Pt offers no complaints at this time and is sleeping with 1:1 staff observation. According to collateral from the prosthodontist/owner of his residence, [facility] he has been decompensating at home and she is concerned about his mental state and safety. Objective: Vitals: Most recent vital signs documented below. Assessment: 68yo wm with history of schizoaffective d/o, bipolar type and treatment with clozapine who presents to the ED twice in 2 days due to failure to thrive. According to the prosthodontist/owner of [facility] where he resides he is not exhibiting baseline behaviors. He is a and service connected; therefore is appropriate for a transfer to a NH facility. Plan: Pending psychiatric transfer / admit to [facility] discharge. [facility] staff coordinating with NH. Psychiatry will follow up daily. Vital Signs Temp Pulse Resp BP Pulse Ox 98.5 F 82 16 124/67 90 01/30/19 10:03 01/30/19 10:03 01/30/19 10:03 01/30/19 10:03 01/30/19 10:03 Lab Results - Entire Visit 01/30/19 01/30/19 01/29/19 07:19 07:19 15:19 WBC RBC Hgb Hct MCV MCH MCHC RDW Plt Count MPV Neut % (Auto) Lymph % (Auto) [place] % (Auto) Eos % (Auto) Baso % (Auto) Absolute Neuts (auto) Absolute Lymphs (auto) Absolute Monos (auto) Absolute Eos (auto) Absolute Basos (auto) Absolute Nucleated RBC Nucleated RBC % Sodium 141 Potassium 4.0 Chloride 103 Carbon Dioxide 32 Anion Gap 6 BUN 20 Creatinine 0.91 Est GFR ( Amer) 100.3 Est GFR (Non-Af Amer) 82.9 BUN/Creatinine Ratio 22.0 H Glucose 107 H Calcium 9.4 Total Bilirubin 0.40 AST 14 ALT 6 L Alkaline Phosphatase 115 H Total Protein 7.1 Albumin 4.5 Globulin 2.6 Albumin/Globulin Ratio 1.7 TSH 1.75 Urine Color Yellow Urine Appearance Clear Urine pH 6.0 Ur Specific Whitney 1.018 Urine Protein Negative Urine Ketones Negative Urine Blood Negative Urine Nitrate Negative Urine Bilirubin Negative Urine Urobilinogen Negative Ur Leukocyte Esterase Negative Urine Glucose Negative Salicylates < 2.50 Urine Opiates Screen None detected Acetaminophen < 15 Ur Barbiturates Screen None detected Ur Phencyclidine Scrn None detected Ur Amphetamines Screen None detected U Benzodiazepines Scrn None detected Urine Cocaine Screen None detected U Cannabinoids Screen None detected Serum Alcohol < 10 01/29/19 15:19 WBC 6.1 RBC 4.98 Hgb 15.2 Hct 45 MCV 90 MCH 31 MCHC 34 RDW 14 Plt Count 189 MPV 8.2 Neut % (Auto) 71.4 Lymph % (Auto) 17.7 [place] % (Auto) 10.2 Eos % (Auto) 0.1 Baso % (Auto) 0.6 Absolute Neuts (auto) 4.3 Absolute Lymphs (auto) 1.1 Absolute Monos (auto) 0.6 Absolute Eos (auto) 0.0 Absolute Basos (auto) 0.0 Absolute Nucleated RBC 0.0 Nucleated RBC % 0.1 Sodium Potassium Chloride Carbon Dioxide Anion Gap BUN Creatinine Est GFR ( Amer) Est GFR (Non-Af Amer) BUN/Creatinine Ratio Glucose Calcium Total Bilirubin AST ALT Alkaline Phosphatase Total Protein Albumin Globulin Albumin/Globulin Ratio TSH Urine Color Urine Appearance Urine pH Ur Specific Whitney Urine Protein Urine Ketones Urine Blood Urine Nitrate Urine Bilirubin Urine Urobilinogen Ur Leukocyte Esterase Urine Glucose Salicylates Urine Opiates Screen Acetaminophen Ur Barbiturates Screen Ur Phencyclidine Scrn Ur Amphetamines Screen U Benzodiazepines Scrn Urine Cocaine Screen U Cannabinoids Screen Serum Alcohol
--- NOTE | 2019-01-30 19:26 | ED ---
Progress - Progress Note Progress Note: Patient signed out from Dr. Hurt shift change 01/30/19 19:00 pending transfer to [place] facility. Re-Evaluation - Re-Evaluation First Eval Re-Evaluation Time: 01:00 Comment: pt c/o lower extremity weakness. will order CT L-spine Second Eval Re-Evaluation Time: 03:15 Comment: CT L-spine per radiologist: 1. Small ribs at L1. 2. Multilevel degenerative disc changes and facet arthropathy with varying degrees of spinal stenosis and no significant neural foraminal stenosis. ED physician has reviewed this report. Course/Dx - Course Course Of Treatment: Patient signed out to Dr. Renteria upon shift change 01/31/19 07:00 pending transfer to [place] facility. - Diagnoses Provider Diagnoses: Suicidal ideation Discharge ED - Sign-Out/Discharge Documenting (check all that apply): Sign-Out Patient, Receiving Sign-Out Signing out patient TO: Orlando Renteria Receiving patient FROM: Aga Hurt - Discharge Plan Condition: Stable Disposition: PSYCHIATRIC FACILITY-OTHER Referrals: Grant Johnson MD [Primary Care Provider] - - Billing Disposition and Condition Condition: STABLE Disposition: Psychiatric Facility Other - Attestation Statements Document Initiated by Scribe: Yes Documenting Scribe: Maria Luisa Hammond Provider For Whom Scribe is Documenting (Include Credential): Rebecca Perez MD Scribe Attestation: IMaria Luisa, scribed for Rebecca Perez MD on 01/31/19 at 0623. Scribe Documentation Reviewed: Yes Provider Attestation: The documentation as recorded by the scribMaria Luisa harper accurately reflects the service I personally performed and the decisions made by me, Rebecca Perez MD Status of Scribe Document: Viewed
--- NOTE | 2019-01-31 07:18 | ED ---
Progress - Progress Note Progress Note: This patient was signed out from Dr. Perez at shift change at 0700 on 01/31/19 , pending disposition, awaiting transfer to [place] facility. Re-Evaluation - Re-Evaluation First Eval Re-Evaluation Time: 01:00 Comment: pt c/o lower extremity weakness. will order CT L-spine Second Eval Re-Evaluation Time: 03:15 Comment: CT L-spine per radiologist: 1. Small ribs at L1. 2. Multilevel degenerative disc changes and facet arthropathy with varying degrees of spinal stenosis and no significant neural foraminal stenosis. ED physician has reviewed this report. Course/Dx - Course Course Of Treatment: This patient was signed out from Dr. Perez at shift change at 0700 on 01/31/19, pending disposition, awaiting transfer to higher level of care. Dr. Cartagena saw patient and believes the patients condition is stable and will be he discharged home. - Diagnoses Provider Diagnoses: Mood disorder - Provider Notifications Discussed Care Of Patient With: Emerita Cartagena Time Discussed With Above Provider: 13:38 Instructed by Provider To: Other - Discussed case with Dr. Cartagena, who would like to discharge pt. Discharge ED - Sign-Out/Discharge Documenting (check all that apply): Patient Departure - Discharge - Discharge Plan Condition: Stable Disposition: HOME Referrals: Grant Johnson MD [Primary Care Provider] - - Billing Disposition and Condition Condition: STABLE Disposition: Home - Attestation Statements Document Initiated by Charoibe: Yes Documenting Scribe: Ashley Azul Provider For Whom Chauncey is Documenting (Include Credential): Orlando Renteria MD Scribe Attestation: Ashley Matthews, scribed for Orlando Renteria MD on 01/31/19 at 1807. Scribe Documentation Reviewed: Yes Provider Attestation: The documentation as recorded by the Ashley rouse accurately reflects the service I personally performed and the decisions made by me, Orlando Renteria MD Status of Scribe Document: Viewed
[2019-01-31 16:41] VITALS: BP 171/80
--- NOTE | 2019-01-31 18:10 | PN ---
Progress Note - Progress Note Date of Service: 01/31/19 Note: Saw patient in the [facility]. Patient was able to provide a coharent history and ambulate with his walker outside his room. Says he has been hearing voices all the time despite being on Clozapine and they aren't command. Denies any delusions, SI or HI. Verbalized his willingness to go back to his [facility]. However I was told that his [facility] is [facility] to [facility]. At this time I don't see any clinical reason to admit him on inpatient unit and he appears appropriate to be sent back to where he was. Patient has been off his Clozapine since he was in the ED. He needs to be resumed on Clozapine CYNTHIA to avoid further complications.
== END 2019-01-31 16:33 | disposition home or self-care (01) ==
LOC: ED 15:00
DX: R45.851 Suicidal ideations (principal); F39 Unspecified mood [affective] disorder; Z79.899 Other long term (current) drug therapy; Z88.8 Allergy status to other drugs, medicaments and biological substances; I10 Essential (primary) hypertension; J44.9 Chronic obstructive pulmonary disease, unspecified; F41.9 Anxiety disorder, unspecified; F43.10 Post-traumatic stress disorder, unspecified; F20.9 Schizophrenia, unspecified; F31.9 Bipolar disorder, unspecified; F17.210 Nicotine dependence, cigarettes, uncomplicated
CPT/HCPCS: 36415; 72131; 80053; 80307; 80320; 80329; 81003; 84443; 85025; 93005; 99284; A9270-GY; G0480

== ENCOUNTER 2022-06-23 22:29 | Inpatient (IN) ==
[2022-06-23 23:05] LABS: Venous Bicarbonate HCO3 26.3 mmol/L (24-28)
[2022-06-23 23:06] LABS: ABS Lymphocytes 0.8 10^3/uL (1.0-4.8); ABS Monocytes 0.5 10^3/uL (0.0-1.1); ABS Neutrophils 4.2 10^3/uL (1.5-7.6); Hematocrit 42.9 % (38-53); Hemoglobin 14.3 g/dL (13.2-16.3); Mean Corpuscular Hemoglobin 28.2 pg (27-33); Mean Corpuscular Hgb Conc 33.5 g/dL (31-36); Mean Corpuscular Volume 84.3 fL (80-97); Mean Platelet Volume 8.1 fL (7.5-11.2); Nucleated Red Blood Cells % 0.1 /100 WBC (0.0-0.4); Platelet Count 160 10^3/uL (150-450); Red Blood Count 5.09 10^6/uL (4.06-5.63); Red Cell Distribution Width 16.4 % (12-17); White Blood Count 5.5 10^3/uL (3.6-10.2)
[2022-06-23 23:28] LABS: ALT 5 U/L (7-52); AST 13 U/L (13-39); Albumin/Globulin Ratio 1.7 (1-3); Alcohol, S < 13 mg/dL (<13); Alkaline Phosphatase 125 U/L (35-149); Anion Gap 4 mmol/L (2-16); Blood Urea Nitrogen 15 mg/dL (6-24); CO2 Carbon Dioxide 30 mmol/L (22-32); Calcium 9.2 mg/dL (8.6-10.3); Chloride 107 mmol/L (101-111); Creatinine, Serum 0.97 mg/dL (0.67-1.17); Globulin 2.3 g/dL (2-4); Glucose 115 mg/dL (70-100); Potassium 3.9 mmol/L (3.5-5.0); Sodium 141 mmol/L (135-145); Total Protein 6.3 g/dL (6.4-8.9); eGFR CKD-EPI 83.5 (>60)
[2022-06-24] MEDS ORDERED: Iohexol 350 (CONTRAST) 500 ML MDV IV ONE (01:05)
[2022-06-24] MEDS ORDERED: Albuterol 2.5mg/3 ml (0.083%) NEB.SOLN INH ONE (05:35)
[2022-06-24 07:03] LABS: Urine Benzodiazepine Screen None Detected (None Detect); Urine Cannabinoids Screen None Detected (None Detect); Urine Opiates Screen None Detected (None Detect)
[2022-06-24] MEDS ORDERED: Albuterol HFA INHALER 8 gm MDI INH PRN (08:08)
[2022-06-24] MEDS ORDERED: Piperacillin/Tazobac ADVAN 3.375 GM in NS 0.9% 100 ml BAG 100 ML IV ONE (08:14)
[2022-06-24] MEDS ORDERED: Al Hydrox/Mg Hydrox/Simet LIQ 30 ML UDC PO PRN (08:17)
[2022-06-24] MEDS ORDERED: Zosyn per Pharmacy NOTE FOLLOW UP SCH (09:00)
[2022-06-24] MEDS: Cholecalciferol (VIT D3) 1,000 unit TAB PO SCH (09:28)
[2022-06-24] MEDS: Aspirin EC 81 mg TAB.EC (enteric coated) PO SCH (09:28)
[2022-06-24] MEDS: Carboxymethylcellulose/Glyceri 10 ML OPHTH.GEL lubricant eye gel BOTH EYES SCH ×4 (09:29→21:57)
[2022-06-24] MEDS: Enoxaparin 40 MG/0.4 ML SYR SUBCUT SCH (09:30)
[2022-06-24] MEDS: Polyethylene Glycol 3350 17 GM PACKET PO SCH (09:30)
[2022-06-24] MEDS ORDERED: ZOSYN 3.375 GM Q8H per EXTENDED INFUSION IV SCH (12:30)
[2022-06-24] MEDS: Mometasone/Formoter 200/5 MDI INH SCH (18:58)
[2022-06-24] MEDS: ZOSYN 3.375 GM Q8H per EXTENDED INFUSION IV SCH (21:57)
[2022-06-25] MEDS: ZOSYN 3.375 GM Q8H per EXTENDED INFUSION IV SCH ×2 (05:18→13:05)
[2022-06-25 06:55] LABS: C Reactive Protein 71.44 mg/L (<8.01); Calcium 8.6 mg/dL (8.6-10.3); Creatinine, Serum 0.92 mg/dL (0.67-1.17); Potassium 4.2 mmol/L (3.5-5.0); eGFR CKD-EPI 88.9 (>60)
[2022-06-25 07:56] LABS: ABS Lymphocytes 0.9 10^3/uL (1.0-4.8); ABS Monocytes 0.6 10^3/uL (0.0-1.1); Hematocrit 38.9 % (38-53); Hemoglobin 13.1 g/dL (13.2-16.3); Mean Corpuscular Hemoglobin 28.3 pg (27-33); Mean Corpuscular Hgb Conc 33.8 g/dL (31-36); Mean Corpuscular Volume 83.8 fL (80-97); Mean Platelet Volume 8.5 fL (7.5-11.2); Nucleated Red Blood Cells % 0.1 /100 WBC (0.0-0.4); Platelet Count 159 10^3/uL (150-450); Red Blood Count 4.64 10^6/uL (4.06-5.63); Red Cell Distribution Width 16.4 % (12-17); White Blood Count 6.5 10^3/uL (3.6-10.2)
[2022-06-25] MEDS: Mometasone/Formoter 200/5 MDI INH SCH ×2 (09:58→19:18)
[2022-06-25] MEDS: Aspirin EC 81 mg TAB.EC (enteric coated) PO SCH (10:59)
[2022-06-25] MEDS: Cholecalciferol (VIT D3) 1,000 unit TAB PO SCH (11:01)
[2022-06-25] MEDS: Carboxymethylcellulose/Glyceri 10 ML OPHTH.GEL lubricant eye gel BOTH EYES SCH ×4 (11:03→21:30)
[2022-06-25] MEDS: Polyethylene Glycol 3350 17 GM PACKET PO SCH (11:04)
[2022-06-25] MEDS: Enoxaparin 40 MG/0.4 ML SYR SUBCUT SCH (11:04)
[2022-06-25] MEDS: Benzocaine (plain) Lozenge 15 MG MT PRN (16:18)
[2022-06-25] MEDS: Nicotine PATCH 21 MG/24 HR PATCH TRANSDERM SCH (16:19)
[2022-06-25] MEDS ORDERED: Magnesium Hydroxide LIQ 30 ML UDC PO PRN (19:11)
[2022-06-25] MEDS ORDERED: Albuterol/Ipratropium NEB.SOL (2.5/0.5 MG) 3 ML NEB.SOLN ONE (19:15)
[2022-06-25] MEDS: Albuterol/Ipratropium NEB.SOL (2.5/0.5 MG) 3 ML NEB.SOLN INH SCH ×3 (19:18→22:20)
[2022-06-25] MEDS: Senna TAB 8.6 mg TAB PO SCH (21:30)
[2022-06-25] MEDS ORDERED: Piperacillin/Tazobac ADVAN 3.375 GM in NS 0.9% 100 ml BAG 100 ML IV SCH (22:00)
[2022-06-25] MEDS ORDERED: Albuterol HFA INHALER 8 gm MDI INH SCH (23:00)
[2022-06-26] MEDS: Albuterol/Ipratropium NEB.SOL (2.5/0.5 MG) 3 ML NEB.SOLN INH SCH ×5 (02:11→20:01)
[2022-06-26] MEDS: Benzocaine (plain) Lozenge 15 MG MT PRN ×4 (06:27→15:22)
[2022-06-26] MEDS: Mometasone/Formoter 200/5 MDI INH SCH ×2 (07:18→20:02)
[2022-06-26] MEDS: Aspirin EC 81 mg TAB.EC (enteric coated) PO SCH (07:58)
[2022-06-26] MEDS: Cholecalciferol (VIT D3) 1,000 unit TAB PO SCH (07:58)
[2022-06-26] MEDS: Nicotine PATCH 21 MG/24 HR PATCH TRANSDERM SCH (07:59)
[2022-06-26] MEDS: Carboxymethylcellulose/Glyceri 10 ML OPHTH.GEL lubricant eye gel BOTH EYES SCH ×4 (07:59→20:09)
[2022-06-26] MEDS: Enoxaparin 40 MG/0.4 ML SYR SUBCUT SCH (07:59)
[2022-06-26] MEDS: Polyethylene Glycol 3350 17 GM PACKET PO SCH (07:59)
[2022-06-26] MEDS: Senna TAB 8.6 mg TAB PO SCH (20:10)
[2022-06-27 06:48] LABS: ABS Lymphocytes 0.9 10^3/uL (1.0-4.8); ABS Monocytes 0.4 10^3/uL (0.0-1.1); ABS Neutrophils 3.8 10^3/uL (1.5-7.6); Hematocrit 39.9 % (38-53); Hemoglobin 13.3 g/dL (13.2-16.3); Lymphocyte % 17.4 %; Mean Corpuscular Hemoglobin 28.3 pg (27-33); Mean Corpuscular Hgb Conc 33.3 g/dL (31-36); Mean Corpuscular Volume 84.9 fL (80-97); Mean Platelet Volume 8.1 fL (7.5-11.2); Nucleated Red Blood Cells % 0.1 /100 WBC (0.0-0.4); Platelet Count 188 10^3/uL (150-450); Red Cell Distribution Width 16.5 % (12-17); White Blood Count 5.2 10^3/uL (3.6-10.2)
[2022-06-27] MEDS: Mometasone/Formoter 200/5 MDI INH SCH ×2 (07:10→19:24)
[2022-06-27] MEDS: Albuterol/Ipratropium NEB.SOL (2.5/0.5 MG) 3 ML NEB.SOLN INH SCH ×3 (07:10→19:24)
[2022-06-27 08:00] LABS: C Reactive Protein 15.77 mg/L (<8.01); Calcium 8.9 mg/dL (8.6-10.3); Creatinine, Serum 0.83 mg/dL (0.67-1.17); Potassium 4.4 mmol/L (3.5-5.0); eGFR CKD-EPI 93.6 (>60)
[2022-06-27] MEDS: Aspirin EC 81 mg TAB.EC (enteric coated) PO SCH (08:49)
[2022-06-27] MEDS: Cholecalciferol (VIT D3) 1,000 unit TAB PO SCH (08:49)
[2022-06-27] MEDS: Enoxaparin 40 MG/0.4 ML SYR SUBCUT SCH (08:51)
[2022-06-27] MEDS: Polyethylene Glycol 3350 17 GM PACKET PO SCH (08:51)
[2022-06-27] MEDS: Nicotine PATCH 21 MG/24 HR PATCH TRANSDERM SCH (08:52)
[2022-06-27] MEDS: Carboxymethylcellulose/Glyceri 10 ML OPHTH.GEL lubricant eye gel BOTH EYES SCH ×4 (08:58→21:57)
[2022-06-27] MEDS: Senna TAB 8.6 mg TAB PO SCH (21:57)
[2022-06-28] MEDS: Benzocaine (plain) Lozenge 15 MG MT PRN (05:48)
[2022-06-28] MEDS: Albuterol/Ipratropium NEB.SOL (2.5/0.5 MG) 3 ML NEB.SOLN INH SCH ×3 (07:58→19:43)
[2022-06-28] MEDS: Mometasone/Formoter 200/5 MDI INH SCH ×2 (07:59→19:43)
[2022-06-28] MEDS: Cholecalciferol (VIT D3) 1,000 unit TAB PO SCH (10:09)
[2022-06-28] MEDS: Aspirin EC 81 mg TAB.EC (enteric coated) PO SCH (10:09)
[2022-06-28] MEDS: Nicotine PATCH 21 MG/24 HR PATCH TRANSDERM SCH (10:10)
[2022-06-28] MEDS: Polyethylene Glycol 3350 17 GM PACKET PO SCH (10:10)
[2022-06-28] MEDS: Enoxaparin 40 MG/0.4 ML SYR SUBCUT SCH (10:10)
[2022-06-28] MEDS: Carboxymethylcellulose/Glyceri 10 ML OPHTH.GEL lubricant eye gel BOTH EYES SCH ×4 (10:14→20:07)
[2022-06-28] MEDS: Senna TAB 8.6 mg TAB PO SCH (20:06)
[2022-06-29] MEDS: Mometasone/Formoter 200/5 MDI INH SCH ×2 (08:11→18:50)
[2022-06-29] MEDS: Albuterol/Ipratropium NEB.SOL (2.5/0.5 MG) 3 ML NEB.SOLN INH SCH ×3 (08:11→18:50)
[2022-06-29] MEDS: Enoxaparin 40 MG/0.4 ML SYR SUBCUT SCH (08:27)
[2022-06-29] MEDS: Cholecalciferol (VIT D3) 1,000 unit TAB PO SCH (08:27)
[2022-06-29] MEDS: Nicotine PATCH 21 MG/24 HR PATCH TRANSDERM SCH (08:27)
[2022-06-29] MEDS: Polyethylene Glycol 3350 17 GM PACKET PO SCH (08:27)
[2022-06-29] MEDS: Aspirin EC 81 mg TAB.EC (enteric coated) PO SCH (08:29)
[2022-06-29] MEDS: Carboxymethylcellulose/Glyceri 10 ML OPHTH.GEL lubricant eye gel BOTH EYES SCH ×4 (08:29→20:16)
[2022-06-29] MEDS: Senna TAB 8.6 mg TAB PO SCH (20:17)
[2022-06-30] MEDS: Mometasone/Formoter 200/5 MDI INH SCH (07:34)
[2022-06-30] MEDS: Albuterol/Ipratropium NEB.SOL (2.5/0.5 MG) 3 ML NEB.SOLN INH SCH ×2 (07:34→13:20)
[2022-06-30] MEDS: Polyethylene Glycol 3350 17 GM PACKET PO SCH (08:02)
[2022-06-30] MEDS: Nicotine PATCH 21 MG/24 HR PATCH TRANSDERM SCH (08:02)
[2022-06-30] MEDS: Aspirin EC 81 mg TAB.EC (enteric coated) PO SCH (08:03)
[2022-06-30] MEDS: Enoxaparin 40 MG/0.4 ML SYR SUBCUT SCH (08:03)
[2022-06-30] MEDS: Cholecalciferol (VIT D3) 1,000 unit TAB PO SCH (08:03)
[2022-06-30] MEDS: Carboxymethylcellulose/Glyceri 10 ML OPHTH.GEL lubricant eye gel BOTH EYES SCH ×2 (09:05→13:00)
[2022-06-30 10:03] VITALS: BP 107/56
== END 2022-06-30 15:15 | disposition home or self-care (01) | DRG 189 ==
LOC: EDHOLD 22:29 → ED 22:29 → MED 06-24 17:11 → SUATTDRO 06-26 15:59
PROVIDERS: ADMIT Internal Medicine; ATTEND Hospitalist

== ENCOUNTER 2023-04-29 11:10 | Inpatient (IN) ==
[2023-04-29 12:02] LABS: ABS Lymphocytes 1.1 10^3/uL (1.0-4.8); ABS Monocytes 0.4 10^3/uL (0.0-1.1); ABS Neutrophils 4.6 10^3/uL (1.5-7.6); Hematocrit 42.9 % (38-53); Hemoglobin 14.4 g/dL (13.2-16.3); Lymphocyte % 17.9 %; Mean Corpuscular Hemoglobin 29.5 pg (27-33); Mean Corpuscular Hgb Conc 33.5 g/dL (31-36); Mean Platelet Volume 8.6 fL (7.5-11.2); Platelet Count 178 10^3/uL (150-450); Red Blood Count 4.87 10^6/uL (4.06-5.63); Red Cell Distribution Width 14.5 % (12-17); White Blood Count 6.1 10^3/uL (3.6-10.2)
[2023-04-29 12:10] LABS: Activated Partial Thrombo Time 44.2 seconds (26.0-38.0); INR 1.02 (0.83-1.13)
[2023-04-29 12:52] LABS: Albumin 4.5 g/dL (3.2-5.2); Calcium 9.7 mg/dL (8.6-10.3); Creatinine, Serum 0.86 mg/dL (0.67-1.17); Direct Bilirubin 0.1 mg/dL (0.03-0.18); Globulin 2.2 g/dL (2-4); HDL Cholesterol 46.9 mg/dL; Indirect Bilirubin 0.4 mg/dL (0.3-1.0); Potassium 3.9 mmol/L (3.5-5.0); Total Bilirubin 0.5 mg/dL (0.2-1.0); Total Protein 6.7 g/dL (6.4-8.9)
[2023-04-29 13:23] LABS: High Sensitivity Troponin 1 Hr 5 pg/mL (<20)
[2023-04-29] MEDS: Iohexol 350 (CONTRAST) 500 ML MDV IV ONE (14:29)
[2023-04-29 16:16] LABS: TSH Ultra Thyroid Stim Horm 1.11 mcIU/mL (0.34-5.60)
[2023-04-29] MEDS: NF: IPRATROPIUM BR (NF)0.06% NASAL 1 SPRAY BTL BOTH NARES SCH (17:46)
[2023-04-29] MEDS: Mometasone/Formoter 200/5 MDI INH SCH (19:33)
[2023-04-30 06:50] LABS: Urine Appearance Turbid; Urine Bilirubin Negative (Negative); Urine Blood Trace (Negative); Urine Color Yellow; Urine Glucose Negative (Negative); Urine Ketones Negative (Negative); Urine Nitrite Negative (Negative); Urine Protein Trace (Negative); Urine Specific Gravity 1.027 (1.002-1.030); Urine Urobilinogen 1+ (Negative); Urine pH 6.5 (5.0-8.0)
[2023-04-30 07:04] LABS: Urine Bacteria Absent /HPF (Absent); Urine Red Blood Cell 1+(3-5/hpf) /HPF (0-Trace); Urine White Blood Cell 3+(>20/hpf) /HPF (0-Trace)
[2023-04-30] MEDS: cefTRIAXone 1 gm/50 mL D5W 1 GM/50 ML BAG IV SCH (18:06)
[2023-05-01] MEDS: Influenza vaccine *QUAD* *2023-24* 0.5 ML SYRINGE IM ONE (08:15)
[2023-05-01 09:47] VITALS: BP 107/81
[2023-05-01] MEDS: Benzocaine/Menthol LOZ PO PRN (15:59)
== END 2023-05-01 16:31 | DRG 101 ==
LOC: ED 11:10 → EDHOLD 15:31 → MEDTELE 17:44
PROVIDERS: ADMIT Student in an Organized Health Care Education/Training Program; ATTEND Internal Medicine

== ENCOUNTER 2024-01-01 10:14 | Observation (INO) ==
[2024-01-01 12:20] LABS: ABS Basophils 0.1 10^3/uL (0.0-0.1); ABS Lymphocytes 0.9 10^3/uL (1.0-4.8); ABS Monocytes 0.5 10^3/uL (0.0-1.1); ABS Neutrophils 16.4 10^3/uL (1.5-7.6); Hematocrit 42.4 % (38-53); Hemoglobin 13.8 g/dL (13.2-16.3); Lymphocyte % 4.8 %; Mean Corpuscular Hemoglobin 28.2 pg (27-33); Mean Corpuscular Hgb Conc 32.6 g/dL (31-36); Mean Corpuscular Volume 86.3 fL (80-97); Mean Platelet Volume 8.2 fL (7.5-11.2); Platelet Count 168 10^3/uL (150-450); Red Blood Count 4.92 10^6/uL (4.06-5.63); Red Cell Distribution Width 16.4 % (12-17); White Blood Count 17.8 10^3/uL (3.6-10.2)
[2024-01-01 12:38] LABS: INR 1.21 (0.85-1.14)
[2024-01-01 12:46] LABS: Calcium 8.8 mg/dL (8.6-10.3); Creatinine, Serum 1.25 mg/dL (0.67-1.17); Potassium 3.9 mmol/L (3.5-5.0); Total Bilirubin 0.7 mg/dL (0.2-1.0); eGFR CKD-EPI 60.8 (>60)
[2024-01-01] MEDS: Lactated Ringers 1000 ml BAG 1,000 ML IV ONE (13:07)
[2024-01-01] MEDS: Acetaminophen IV 1 GM/100ML 1,000 MG/100 ML BAG IV ONE (13:09)
[2024-01-01 13:15] LABS: Urine Appearance Clear; Urine Bilirubin Negative (Negative); Urine Blood Negative (Negative); Urine Color Yellow; Urine Glucose Negative (Negative); Urine Ketones Negative (Negative); Urine Nitrite Negative (Negative); Urine Protein Negative (Negative); Urine Specific Gravity 1.019 (1.002-1.030); Urine Urobilinogen Negative (Negative)
[2024-01-01] MEDS: cefTRIAXone 2 gm/50 mL D5W 2 GM/50 ML BAG IV ONE (16:22)
[2024-01-01] MEDS: Enoxaparin 40 MG/0.4 ML SYR SUBCUT SCH (18:13)
[2024-01-01] MEDS: Nicotine PATCH 14 MG/24 HR PATCH TRANSDERM SCH (22:39)
[2024-01-01] MEDS: Dextran 70/Hypromellose Tears Eye Drops 15 ml BTL (for Artificials Tears) BOTH EYES SCH (22:42)
[2024-01-02] MEDS: CLOZAPINE 50 MG PO SCH (02:14)
[2024-01-02 06:19] LABS: ABS Lymphocytes 0.8 10^3/uL (1.0-4.8); ABS Monocytes 0.5 10^3/uL (0.0-1.1); ABS Neutrophils 11.7 10^3/uL (1.5-7.6); Hematocrit 38.1 % (38-53); Hemoglobin 12.6 g/dL (13.2-16.3); Lymphocyte % 6.4 %; Mean Corpuscular Hemoglobin 28.4 pg (27-33); Mean Platelet Volume 8.6 fL (7.5-11.2); Platelet Count 135 10^3/uL (150-450); Red Blood Count 4.43 10^6/uL (4.06-5.63)
[2024-01-02 06:44] LABS: Calcium 8.3 mg/dL (8.6-10.3); Creatinine, Serum 1.15 mg/dL (0.67-1.17); Magnesium 1.8 mg/dL (1.9-2.7); Potassium 3.6 mmol/L (3.5-5.0); eGFR CKD-EPI 67.2 (>60)
[2024-01-02] MEDS: Mometasone/Formoter 100/5 MDI INH SCH (08:21)
[2024-01-02] MEDS: Magnesium Sulfate 2 gm BAG 2 GM/50 ML BAG IVPB ONE (10:28)
[2024-01-02] MEDS: Aspirin EC 81 mg TAB.EC (enteric coated) PO SCH (10:33)
[2024-01-02] MEDS: ARIPIPRAZOLE 10 MG PO SCH (11:19)
[2024-01-02] MEDS: cefTRIAXone 2 gm/50 mL D5W 2 GM/50 ML BAG IV SCH (15:12)
[2024-01-02] MEDS ORDERED: Vancomycin per Pharmacy 1 EA NOTE FOLLOW UP PRN (15:32)
[2024-01-02] MEDS ORDERED: Vancomycin 1,750 MG in NS 0.9% 500 ml BAG 500 ML IVPB ONE (16:00)
[2024-01-02] MEDS ORDERED: Vancomycin 1,000 MG in NS 0.9% 250 ml 250 ML IVPB SCH (16:00)
[2024-01-02] MEDS: Vancomycin 1,500 MG in NS 0.9% 250 ml 250 ML IVPB ONE (16:04)
[2024-01-02] MEDS: Vancomycin 750 MG in NS 0.9% 250 ML IVPB SCH (17:33)
[2024-01-02 18:01] LABS: C Reactive Protein 163.48 mg/L (<8.01)
[2024-01-03] MEDS: Vancomycin 750 MG in NS 0.9% 250 ML IVPB SCH (04:52)
[2024-01-03 09:06] LABS: ABS Lymphocytes 0.8 10^3/uL (1.0-4.8); ABS Monocytes 0.5 10^3/uL (0.0-1.1); ABS Neutrophils 6.7 10^3/uL (1.5-7.6); Hematocrit 37.2 % (38-53); Hemoglobin 12.3 g/dL (13.2-16.3); Lymphocyte % 9.7 %; Mean Corpuscular Hemoglobin 28.3 pg (27-33); Mean Corpuscular Volume 85.8 fL (80-97); Mean Platelet Volume 8.4 fL (7.5-11.2); Platelet Count 121 10^3/uL (150-450); Red Blood Count 4.33 10^6/uL (4.06-5.63); Red Cell Distribution Width 16.4 % (12-17)
[2024-01-03 09:31] LABS: Calcium 7.9 mg/dL (8.6-10.3); Creatinine, Serum 0.86 mg/dL (0.67-1.17); Potassium 4.1 mmol/L (3.5-5.0); eGFR CKD-EPI 91.4 (>60)
[2024-01-04] MEDS: Vancomycin Trough Check NOTE FOLLOW UP ONE (10:29)
[2024-01-04] MEDS ORDERED: cefTRIAXone 2 gm/50 mL D5W 2 GM/50 ML BAG IV SCH (14:00)
[2024-01-04] MEDS ORDERED: Vancomycin 1,250 MG in NS 0.9% 250 ml 250 ML IVPB SCH (14:30)
[2024-01-04] MEDS: Sulfamethox/Trimethoprim DS TAB 800/160 mg PO SCH (21:59)
[2024-01-05] MEDS: Magnesium Hydroxide LIQ 30 ML UDC PO PRN (14:56)
[2024-01-06 07:02] LABS: ABS Lymphocytes 1.2 10^3/uL (1.0-4.8); ABS Monocytes 0.5 10^3/uL (0.0-1.1); Hematocrit 38.8 % (38-53); Hemoglobin 13.2 g/dL (13.2-16.3); Lymphocyte % 20.6 %; Mean Corpuscular Hemoglobin 28.9 pg (27-33); Mean Corpuscular Hgb Conc 33.9 g/dL (31-36); Mean Corpuscular Volume 85.3 fL (80-97); Mean Platelet Volume 7.9 fL (7.5-11.2); Platelet Count 187 10^3/uL (150-450); Red Blood Count 4.55 10^6/uL (4.06-5.63); Red Cell Distribution Width 16.1 % (12-17); White Blood Count 5.8 10^3/uL (3.6-10.2)
[2024-01-06 07:18] LABS: Creatinine, Serum 0.84 mg/dL (0.67-1.17); Potassium 4.5 mmol/L (3.5-5.0); eGFR CKD-EPI 92.1 (>60)
[2024-01-06 09:41] VITALS: BP 121/65
[2024-01-06] MEDS ORDERED: Vancomycin Trough Check NOTE FOLLOW UP ONE (14:00)
== END 2024-01-06 13:05 | disposition home or self-care (01) ==
LOC: EDHOLD 10:14 → ED 10:14 → SUATTDRO 16:50 → MED 18:54
PROVIDERS: ADMIT Hospitalist; ATTEND Student in an Organized Health Care Education/Training Program